=== PATIENT | male | born 1950 | race Caucasian/White ===

== ENCOUNTER → 2020-05-26 08:19 | Outpatient (BNVA) | payer MEDICARE, SELFPAY | PROVIDERS: PCP Internal Medicine; Referring Provider Internal Medicine; Visit Provider Hospitalist | DX: J84.89 Other specified interstitial pulmonary diseases (principal); J84.10 Pulmonary fibrosis, unspecified; J31.0 Chronic rhinitis; R05 Cough; M05.9 Rheumatoid arthritis with rheumatoid factor, unspecified; M35.9 Systemic involvement of connective tissue, unspecified; Z86.711 Personal history of pulmonary embolism; Z79.899 Other long term (current) drug therapy | CPT/HCPCS: 99212 ==

== ENCOUNTER 2020-08-03 09:47 | Outpatient (REF) | payer MEDICARE, SELFPAY ==
--- NOTE | 2020-08-03 10:12 | XR_ITS ---
EXAMINATION: XR CHEST CLINICAL INFORMATION: Interstitial lung disease COMPARISON: None TECHNIQUE: 2 views of the chest were obtained. FINDINGS: There is splaying of the srikanth questionable for left atrial enlargement. Hilar and mediastinal contours are otherwise unremarkable. The lung volumes are low. There are increased interstitial markings suggestive of interstitial lung disease. There is an 8 mm nodular density in the left lateral midlung probably artifactual due to overlapping bone, scapula and left posterior sixth rib. There is no pleural effusion or pneumothorax. Bony structures are unremarkable. XR/XR chest 2V IMPRESSION: Low lung volumes and interstitial lung disease. 8mm left lung nodular density, question artifactual due to bone. Splaying of the srikanth questionable for left atrial enlargement.
[2020-08-03 10:41] LABS: MANUAL DIFF FLAG NO
[2020-08-03 10:45] LABS: Basophils Percent Auto 0.2 % (0-2); Eosinophils Absolute Auto 0.1 X10*3/uL (0.0-0.4); Eosinophils Percent Auto 0.5 % (0-4); Hematocrit 49.3 % (42-52); Hemoglobin 15.1 g/dl (14.0-18.0); Imm Gran Abs Auto 0.16 X10*3/uL (0.00-0.03); Imm Gran Pct Auto 1.2 % (0.0-0.4); Lymphocytes Absolute Auto 1.2 X10*3/uL (1.2-4.9); Lymphocytes Percent Auto 8.5 % (20-40); Mean Corpuscular HGB Conc 30.6 g/dl (31.0-36.0); Mean Corpuscular Hemoglobin 28.3 pg (27.0-33.0); Mean Corpuscular Volume 92.3 fL (80-98); Mean Platelet Volume 9.5 fL (9.4-12.4); Monocytes Absolute Auto 0.8 X10*3/uL (0.1-1.2); Monocytes Percent Auto 6.1 % (2-11); Neutrophils Absolute Auto 11.4 X10*3/uL (2.0-8.3); Neutrophils Percent Auto 83.5 % (45-73); Platelet Count 313 X10*3/uL (160-400); Red Blood Count 5.34 X10*6/uL (4.60-5.80); White Blood Count 13.7 X10*3/uL (4.8-10.8)
[2020-08-03 11:17] LABS: Alanine Aminotransferase 12 U/L (0-40); Albumin Level 4.2 g/dL (3.5-5.0); Alkaline Phosphatase 84 U/L (39-117); Anion Gap 16 (12-20); Aspartate Amino Transferase 15 U/L (5-37); Bilirubin Direct 0.5 mg/dL (0.0-0.5); Bilirubin Total 1.1 mg/dL (0.0-1.0); Blood Urea Nitrogen 18 mg/dL (9-16); Carbon Dioxide 28 mmol/L (22-29); Chloride 102 mmol/L (96-108); Estimated Glomerular Filt Rate > 60; Glucose Random 89 mg/dL (60-115); Potassium 4.5 mmol/l (3.3-5.1); Sodium 141 mmol/L (135-145)
[2020-08-03 11:24] LABS: Calcium 12.4 mg/dL (8.4-10.2)
== END 2020-08-03 09:48 | disposition home or self-care (01) ==
LOC: HO.LAB 09:47
PROVIDERS: PCP Internal Medicine; Visit Provider Hospitalist
DX: J84.89 Other specified interstitial pulmonary diseases (principal)
CPT/HCPCS: 36415; 71046; 80048; 80076; 85025

== ENCOUNTER → 2020-08-27 08:37 | Outpatient (BNVA) | payer MEDICARE, SELFPAY | PROVIDERS: PCP Internal Medicine; Visit Provider Hospitalist | DX: J84.10 Pulmonary fibrosis, unspecified (principal); J84.89 Other specified interstitial pulmonary diseases; J31.0 Chronic rhinitis; J84.112 Idiopathic pulmonary fibrosis; M05.9 Rheumatoid arthritis with rheumatoid factor, unspecified; Z86.711 Personal history of pulmonary embolism; M35.9 Systemic involvement of connective tissue, unspecified | CPT/HCPCS: 99212 ==

== ENCOUNTER → 2020-10-05 08:22 | Outpatient (BNVA) | payer MEDICARE, SELFPAY | PROVIDERS: PCP Internal Medicine; Visit Provider Hospitalist | DX: J84.10 Pulmonary fibrosis, unspecified (principal); J84.112 Idiopathic pulmonary fibrosis; R05 Cough; K21.9 Gastro-esophageal reflux disease without esophagitis; M05.9 Rheumatoid arthritis with rheumatoid factor, unspecified; Z86.711 Personal history of pulmonary embolism; Z99.81 Dependence on supplemental oxygen; Z79.899 Other long term (current) drug therapy | CPT/HCPCS: 99212 ==

== ENCOUNTER → 2020-11-23 10:05 | Outpatient (BNVA) | payer MEDICARE, SELFPAY | PROVIDERS: PCP Internal Medicine; Visit Provider Hospitalist | DX: J84.10 Pulmonary fibrosis, unspecified (principal); J31.0 Chronic rhinitis; J84.112 Idiopathic pulmonary fibrosis; R55 Syncope and collapse; K21.9 Gastro-esophageal reflux disease without esophagitis; J84.89 Other specified interstitial pulmonary diseases; M35.9 Systemic involvement of connective tissue, unspecified; Z86.711 Personal history of pulmonary embolism | CPT/HCPCS: 99212 ==

== ENCOUNTER → 2021-01-20 08:44 | Outpatient (BNVA) | payer MEDICARE, SELFPAY | PROVIDERS: PCP Internal Medicine; Visit Provider Hospitalist | DX: J84.112 Idiopathic pulmonary fibrosis (principal); M06.9 Rheumatoid arthritis, unspecified; J84.89 Other specified interstitial pulmonary diseases; J84.10 Pulmonary fibrosis, unspecified; R09.02 Hypoxemia; J84.9 Interstitial pulmonary disease, unspecified; G47.33 Obstructive sleep apnea (adult) (pediatric); E21.3 Hyperparathyroidism, unspecified; K21.9 Gastro-esophageal reflux disease without esophagitis; R55 Syncope and collapse; Z86.711 Personal history of pulmonary embolism; Z91.030 Bee allergy status; Z99.81 Dependence on supplemental oxygen; Z99.89 Dependence on other enabling machines and devices; Z79.01 Long term (current) use of anticoagulants; Z79.52 Long term (current) use of systemic steroids; Z79.899 Other long term (current) drug therapy | CPT/HCPCS: 99212 ==

== ENCOUNTER 2021-02-24 09:33 | Outpatient (REF) | payer MEDICARE, SELFPAY ==
--- NOTE | 2021-02-24 | PFT_ITS ---
INDICATIONS: Pulmonary fibrosis, COPD. SPIROMETRY: The FEV1 to FVC 85% with an FEV1 of 1.83 L, which is 42% predicted and an FVC of 2.16 L, which is 36% predicted. No significant response to bronchodilators noted. Maximum voluntary ventilation 54% predicted. LUNG VOLUMES: Total lung capacity 42% predicted. DIFFUSION CAPACITY: DLCO 29% predicted. COMPARISONS: PFTs from 2019. INTERPRETATION: No obstructive ventilatory defect. No significant response to bronchodilators noted. There is a moderate decrease in maximum voluntary ventilation secondary to likely deconditioning and his underlying lung disease. Lung volumes do demonstrate a severe restrictive ventilatory defect secondary to his pulmonary fibrosis and there is also a very severe diffusion impairment. When compared to 2019, there is a significant decrease in the FVC, significant decrease in the FEV1, significant decrease in the total lung capacity, and a significant decrease in the diffusion capacity. Clinical correlation warranted. Ambrocio Haque MD MR/MODL / [id number]
== END 2021-02-24 09:34 | disposition home or self-care (01) ==
LOC: HO.RESP 09:33
PROVIDERS: PCP Internal Medicine; Visit Provider Hospitalist
DX: J44.9 Chronic obstructive pulmonary disease, unspecified (principal)
CPT/HCPCS: 94060; 94727; 94729

== ENCOUNTER 2021-03-28 10:13 | Inpatient (IN) | payer MEDICARE, SELFPAY ==
--- NOTE | ~2021-03-28 | XR_ITS ---
EXAMINATION: XR CHEST CLINICAL INFORMATION: Check ET and orogastric tube placement COMPARISON: Previous chest x-rays from earlier the same day TECHNIQUE: Frontal view of the chest was obtained. FINDINGS: There is an endotracheal tube with tip 6.7 cm above the srikanth. There is an OG tube with tip projecting over the stomach. There is a right upper extremity line with tip projecting over the SVC. The cardiac and mediastinal contours are stable. There is bilateral mixed interstitial and airspace disease. There is no pleural effusion or pneumothorax. No acute bone abnormality is seen. XR/XR chest 1V IMPRESSION: Satisfactory position of ET and OG tubes. No change in extensive bilateral lung disease.
--- NOTE | ~2021-03-28 | XR_ITS ---
EXAMINATION: XR CHEST CLINICAL INFORMATION: Hypoxia COMPARISON: Previous chest x-ray most recent 04/04/2021 TECHNIQUE: Frontal view of the chest was obtained. FINDINGS: The lung volumes are low. The cardiac silhouette is enlarged but stable. Hilar and mediastinal contours are stable. There is bilateral multilobar airspace disease. This appears increased from previous exam. There is no pleural effusion or pneumothorax. No acute bone abnormality is seen. XR/XR chest 1V IMPRESSION: Low lung volumes. Bilateral airspace disease increased from previous exams.
--- NOTE | ~2021-03-28 | XR_ITS ---
EXAMINATION: XR CHEST CLINICAL INFORMATION: Reevaluate lung disease COMPARISON: Previous chest x-ray most recent 04/01/2021 TECHNIQUE: Frontal view of the chest was obtained. FINDINGS: The cardiac and mediastinal contours are stable. The lung volumes are low. There is bilateral patchy airspace disease. This does not appear appreciably changed. There are new linear densities projecting over the bilateral chest. This may represent something on the patient's skin or clothing. There is no pleural effusion or pneumothorax. No acute bone abnormality is seen. XR/XR chest 1V IMPRESSION: Low lung volumes and bilateral extensive airspace disease. There is no appreciable change from 04/01/2021.
--- NOTE | ~2021-03-28 | XR_ITS ---
EXAMINATION: XR CHEST CLINICAL INFORMATION: Hypoxia COMPARISON: August 03, 2020 TECHNIQUE: AP portable view of the chest was obtained. FINDINGS: There is underlying chronic interstitial lung disease seen bilaterally. There is some chronic loss of right lung volume. Superimposed on this there appears to be airspace disease throughout the right lung and involving the left lung base. There is prominence of the right hilar region which could be related to lymphadenopathy. Heart normal size. No definite pulmonary edema appreciated. XR/XR chest 1V IMPRESSION: Findings consistent with chronic interstitial lung disease with superimposed acute disease which may be inflammatory or infectious.
--- NOTE | ~2021-03-28 | XR_ITS ---
EXAMINATION: XR CHEST CLINICAL INFORMATION: Hypoxia COMPARISON: 04/08/2021 TECHNIQUE: Frontal view of the chest was obtained. FINDINGS: Endotracheal tube terminates 6.8 cm above the srikanth. Enteric tube terminates within the stomach. Right PICC terminates at the superior cavoatrial junction. Stable appearance of the diffuse bilateral interstitial and airspace opacities. No large pleural effusion. No pneumothorax. Heart size within normal limits for technique. No acute or suspicious osseous abnormalities. XR/XR chest 1V IMPRESSION: Stable exam
--- NOTE | ~2021-03-28 | XR_ITS ---
EXAMINATION: XR CHEST CLINICAL INFORMATION: Hypoxia COMPARISON: Chest radiograph 04/06/2021. TECHNIQUE: Frontal view of the chest was obtained. FINDINGS: Diffuse fine and medium pulmonary reticular opacities and diffuse groundglass opacity are present throughout the lungs and unchanged compared with 04/06/2021. Multiple external artifacts overlie the thorax. The cardia style silhouette is partially obscured from precise visualization by the pulmonary opacities but is grossly unchanged. No effusions or pneumothoraces are visualized. XR/XR chest 1V IMPRESSION: 1. No change compared with 04/06/2021. Unchanged diffuse alveolar and interstitial disease of the lungs.
--- NOTE | ~2021-03-28 | CT_ITS ---
EXAMINATION: CT ANGIOGRAM OF THE CHEST WITH AND WITHOUT CONTRAST (CT PULMONARY ANGIOGRAM FOR PE) CLINICAL INFORMATION: Hypoxic, history of PE. COMPARISON: None. TECHNIQUE: Prior to contrast administration, noncontrast localization images were obtained. Subsequently, multidetector volumetric imaging was performed from the thoracic inlet to below the diaphragms following the administration of 80 mL Omnipaque 350 intravenous contrast. No contrast reaction reported Sagittal, coronal, and MIP oblique sagittal reformatted images were obtained on the CT workstation, uploaded to PACS, and reviewed. This CT examination was performed using dose optimization techniques as appropriate, variously including the following: *Automated exposure control *Adjustment of mA and/or kV according to patient size (this includes techniques or standardized protocols for targeted exams where dose is matched to indication/reason for exam; i.e. extremities or head) *Use of iterative reconstruction technique Total exam dose-length product 357 mGy-cm FINDINGS: QUALITY OF STUDY/CONTRAST BOLUS: Satisfactory. PULMONARY ARTERIES: Respiratory motion artifact limits evaluation. No obvious/large filling defects identified in the central or segmental pulmonary aspect indicate definite emboli. THORACIC AORTA: No aneurysm or dissection. LUNG: There is multifocal airspace and ground-glass opacities diffusely in lungs. This could reflect infectious/inflammatory process. Respiratory motion artifact limits evaluation. PLEURA: No pleural effusion or pneumothorax. MEDIASTINUM: Normal heart size. No pericardial effusion. Nonspecific borderline prominent prevascular lymph nodes measuring up to 0.9 cm in short axis. No hilar lymphadenopathy. No evidence of septal bowing or right heart strain. CHEST WALL/AXILLA: No axillary or internal mammary lymphadenopathy. OSSEOUS STRUCTURES: No acute or suspicious osseous abnormality. UPPER ABDOMEN: No acute findings in the upper abdomen. No reflux of contrast into the hepatic veins to suggest elevated right heart pressures. CT/CT angio chest PE protocol IMPRESSION: Respiratory motion artifact limiting evaluation. No significant central pulmonary emboli are identified. Multifocal airspace and ground-glass opacities diffusely in bilateral lungs. This could reflect infectious/ inflammatory process. Recommend clinical correlation and management. Recommend follow-up imaging for reassessment/ensure resolution. Nonspecific borderline prominent mediastinal lymph nodes. VTE: Negative.
--- NOTE | ~2021-03-28 | XR_ITS ---
EXAMINATION: XR CHEST CLINICAL INFORMATION: New line COMPARISON: 04/08/2021, earlier the same day TECHNIQUE: Frontal view of the chest was obtained. FINDINGS: New right upper extremity PICC line with catheter tip near the cavoatrial junction. Worsened diffuse interstitial opacity. Possible right pleural effusion. Cardiac silhouette remains enlarged. XR/XR chest 1V IMPRESSION: New right upper extremity PICC line with catheter tip at the cavoatrial junction. Worsened diffuse interstitial opacities.
[2021-03-28 10:27] VITALS: BP 136/87; PULSE 115; RESP 22; TEMP 37.1; O2SAT 64; BMI 33.0
--- NOTE | 2021-03-28 10:31 | PC.NURSE ---
PLACED ON NRB 100% RECOVERED SLOWLY TO 93%, VERBALLY BUT LABORED SENTENCES, COLOR IMPROVING
--- NOTE | 2021-03-28 10:35 | ECG_ITS ---
Test Reason : DYSPNEA Blood Pressure : / mmHG Vent. Rate : 102 BPM Atrial Rate : 102 BPM P-R Int : 148 ms QRS Dur : 080 ms QT Int : 356 ms P-R-T Axes : 035 -45 056 degrees QTc Int : 463 ms Sinus tachycardia with frequent Premature ventricular complexes Left axis deviation Nonspecific T wave abnormality Abnormal ECG No previous ECGs available Referred By: Thais Shankar Electronically Signed By:GIRISH LAWLER
--- NOTE | 2021-03-28 10:49 | ED.SOB ---
HPI - SOB/Dyspnea General Chief Complaint: Dyspnea Stated Complaint: DIFF BREATHING LOW O2 Time Seen by Provider: 03/28/21 10:20 Source: patient and EMS Mode of arrival: EMS Limitations: no limitations History of Present Illness HPI Narrative: Patient comes to the emergency room complaining of worsening shortness of breath. Patient has history significant for idiopathic pulmonary fibrosis, rheumatoid arthritis, history of pulmonary embolisms currently being treated with Eliquis. Patient states that for the last 2 days, his oxygen saturation has been as low as 45% on his home O2. Patient sees Dr. Haque for pulmonology, patient was instructed to come to the emergency room immediately. On arrival, patient's oxygen saturation was 64% on room air. Patient was started on a non-rebreather 15 L, oxygen saturation is 95%. Patient states that for the last month he has been coughing more than usual, complaining of productive cough, no fever or chills, no chest pain. Related Data Home Medications Medication Instructions Recorded Confirmed allopurinol 100 mg tablet 100 mg PO DAILY 05/26/20 03/28/21 amlodipine 10 mg tablet 10 mg PO DAILY 05/26/20 03/28/21 olmesartan 40 mg tablet 40 mg PO DAILY 05/26/20 03/28/21 prednisone 10 mg tablet 10 mg PO DAILY 05/26/20 03/28/21 tadalafil 20 mg tablet 20 mg PO DAILY PRN 10/05/20 03/28/21 epinephrine 0.3 mg/0.3 mL 0.3 mg IM ONCE PRN 01/20/21 03/28/21 injection, auto-injector Previous Rx's Medication Instructions Recorded apixaban 5 mg tablet (Eliquis) 5 mg PO BID #60 tab 09/08/20 nintedanib 150 mg capsule (Ofev) 150 mg PO Q12H #60 cap 12/31/20 Allergies Allergy/AdvReac Type Severity Reaction Status Date / Time Bee Stings Allergy Mild Anaphylaxis Uncoded 08/27/20 08:57 Review of Systems Review of Systems: Constitutional : No Weight loss, No Fever, No Chills, No Night Sweats, No Fatigue, No Malaise ENT/Mouth : No Hearing loss, No Ear Pain, No Nasal Congestion, No Sinus Pain, No Hoarseness, No sore throat, No Rhinorrhea, No Swallowing Difficulty Eyes: No Eye Pain, No Swelling, No Redness, No Foreign Body, No Discharge, No Vision Changes Cardiovascular : No Chest Pain, No SOB, No Dyspnea on Exertion, No Orthopnea, No Edema, No Palpitations Respiratory : Worsening chronic cough with sputum, worsening shortness of breath, low oxygen saturation Gastrointestinal : No Nausea, No Vomiting, No Diarrhea, No Constipation, No abdominal Pain, No Hematochezia, No Melena Genitourinary : no irregular bleeding, No Dysuria, No Urinary Frequency, No Hematuria, No Urinary Incontinence, No Urgency, No Flank Pain, No Urinary Flow Changes, No Hesitancy Musculoskeletal : No joint pain, No Myalgias, No Joint Swelling Skin : No Skin Lesions, No rash Neuro : No Weakness, No Numbness, No Paresthesias, No Loss of Consciousness, No Dizziness, No Headache Psych : No Anxiety/Panic, No Depression, No SI/HI/AH/VH, No Social Issues, Heme/Lymph: No Bruising, No Bleeding,No Lymphadenopathy Endocrine : No Polyuria, No Polydipsia, No Temperature Intolerance [facility] Past Medical History Medical History Chronic rhinitis Cough History of pulmonary embolism Interstitial lung disease due to connective tissue disease IPF (idiopathic pulmonary fibrosis) Pulmonary fibrosis Rheumatoid arthritis Syncope Social History Social History (Updated 01/20/21 @ 08:59 by DAYNA Randhawa) Patient Tobacco Use Status: Never used Tobacco Advance Directives: No Advance Directives Information Provided: No Physical Exam Vital Signs: Vital Signs: Last Vital Signs Temp 98.7 F 03/28/21 10:27 Pulse 88 03/28/21 14:42 Resp 20 03/28/21 14:42 BP 140/78 H 03/28/21 13:31 Pulse Ox 94 03/28/21 14:42 Body Mass Index 33.0 Const: Other: Appearance: Alert. Oriented X3. [id number] respiratory distress, improving with a non-rebreather Eyes: Pupils equal, round and reactive to light. ENT: Pharynx normal. Neck: Normal inspection. Neck supple. No lymph nodes noted. No crepitus CVS: Normal heart rate and rhythm. Pulses normal. Normal S1 and S2 Respiratory: Mild to moderate respiratory distress, diminished breath sounds, diffuse crackles, no wheezing Abdomen: Soft and nontender. No rigidity. No distention. Skin: Skin warm and dry. Initially patient was cyanotic in all extremities and face, after starting him on 15 L, patient regained normal color Extremities: No lower extremity edema. No Lacerations. No Rash Neuro: Oriented X 3. No motor deficit. No sensory deficit. Moving all extermities. No slurred speech. Course Course Course Narrative: Patient was weaned off from 15 L non-rebreather to a Ventimask. Patient feeling much better, oxygen saturation. Patient is on a non-rebreather, breathing comfortably, speaking in full sentences. Patient started on IV Levaquin. Sepsis is not suspected at this time. Patient's hypoxia likely secondary to pneumonia. I discussed the patient with Dr. Khan, patient being admitted. MDM - SOB/Dyspnea Lab Data Result diagrams: 03/28/21 11:22 03/28/21 11:22 Labs: Lab Results 03/28/21 03/28/21 03/28/21 Range/Units 11:21 11:22 11:22 WBC 14.0 H (4.8-10.8) X10*3/uL RBC 4.72 (4.60-5.80) X10*6/uL Hgb 14.5 (14.0-18.0) g/dl Hct 44.6 (42-52) % MCV 94.5 (80-98) fL MCH 30.7 (27.0-33.0) pg MCHC 32.5 (31.0-36.0) g/dl RDW 14.3 (11.0-16.0) % Plt Count 152 L D (160-400) X10*3/uL MPV 10.2 (9.4-12.4) fL Immature Gran % (Auto) 1.1 H (0.0-0.4) % Neut % (Auto) 87.4 H (45-73) % Lymph % (Auto) 4.6 L (20-40) % [place] % (Auto) 6.4 (2-11) % Eos % (Auto) 0.4 (0-4) % Baso % (Auto) 0.1 (0-2) % Lymph # (Auto) 0.6 L (1.2-4.9) X10*3/uL [place] # (Auto) 0.9 (0.1-1.2) X10*3/uL Eos # (Auto) 0.1 (0.0-0.4) X10*3/uL Baso # (Auto) 0.0 (0.0-0.2) X10*3/uL Abs Immat Gran (auto) 0.16 H (0.00-0.03) X10*3/uL Absolute Neuts (auto) 12.2 H (2.0-8.3) X10*3/uL Absolute Nucleated RBC 0.000 (0.0-0.012) X10*3/uL Nucleated RBC % (auto) 0.0 (0.0-0.2) /100WBC Sodium 144 (135-145) mmol/L Potassium 3.4 (3.3-5.1) mmol/L Chloride 106 (96-108) mmol/L Carbon Dioxide 27 (22-29) mmol/L Anion Gap 14 (12-20) BUN 12 (9-16) mg/dL Creatinine 0.75 (0.5-1.4) mg/dL Estim Creat Clear Calc 119.2 Estimated GFR > 60 Random Glucose 95 (60-115) mg/dL Lactic Acid (0.5-2.0) mmol/L Calcium 9.6 D (8.4-10.2) mg/dL Total Bilirubin 2.6 H (0.0-1.0) mg/dL Direct Bilirubin 0.9 H (0.0-0.5) mg/dL AST 21 (5-37) U/L ALT 18 (0-40) U/L Alkaline Phosphatase 61 D (39-117) U/L Troponin I High Sens (<3.5-35.0) ng/L B-Natriuretic Peptide (<100) pg/mL Total Protein 6.5 (6.5-8.0) g/dL Albumin 3.8 (3.5-5.0) g/dL COVID-19 ([facility]) Negative (Negative) COVID-19 Clin Com See Note 03/28/21 03/28/21 Range/Units 11:22 11:22 WBC (4.8-10.8) X10*3/uL RBC (4.60-5.80) X10*6/uL Hgb (14.0-18.0) g/dl Hct (42-52) % MCV (80-98) fL MCH (27.0-33.0) pg MCHC (31.0-36.0) g/dl RDW (11.0-16.0) % Plt Count (160-400) X10*3/uL MPV (9.4-12.4) fL Immature Gran % (Auto) (0.0-0.4) % Neut % (Auto) (45-73) % Lymph % (Auto) (20-40) % [place] % (Auto) (2-11) % Eos % (Auto) (0-4) % Baso % (Auto) (0-2) % Lymph # (Auto) (1.2-4.9) X10*3/uL [place] # (Auto) (0.1-1.2) X10*3/uL Eos # (Auto) (0.0-0.4) X10*3/uL Baso # (Auto) (0.0-0.2) X10*3/uL Abs Immat Gran (auto) (0.00-0.03) X10*3/uL Absolute Neuts (auto) (2.0-8.3) X10*3/uL Absolute Nucleated RBC (0.0-0.012) X10*3/uL Nucleated RBC % (auto) (0.0-0.2) /100WBC Sodium (135-145) mmol/L Potassium (3.3-5.1) mmol/L Chloride (96-108) mmol/L Carbon Dioxide (22-29) mmol/L Anion Gap (12-20) BUN (9-16) mg/dL Creatinine (0.5-1.4) mg/dL Estim Creat Clear Calc Estimated GFR Random Glucose (60-115) mg/dL Lactic Acid 1.5 (0.5-2.0) mmol/L Calcium (8.4-10.2) mg/dL Total Bilirubin (0.0-1.0) mg/dL Direct Bilirubin (0.0-0.5) mg/dL AST (5-37) U/L ALT (0-40) U/L Alkaline Phosphatase (39-117) U/L Troponin I High Sens 6.0 (<3.5-35.0) ng/L B-Natriuretic Peptide 75 (<100) pg/mL Total Protein (6.5-8.0) g/dL Albumin (3.5-5.0) g/dL COVID-19 ([facility]) (Negative) COVID-19 Clin Com Critical Care Time Critical Care Time Critical Care Time: Yes Total Critical Care Time: 60 Attestation: 60 minutes were spent with the patient in direct patient care and stabilization. Discharge Plan Discharge Clinical Impression: Pneumonia Patient Disposition: Admitted As Inpatient Prescriptions: No Action apixaban [Eliquis] 5 mg tablet 5 mg PO BID Qty: 60 RF: 11 nintedanib [Ofev] 150 mg capsule 150 mg PO Q12H Qty: 60 RF: 10 epinephrine 0.3 mg/0.3 mL auto-injector 0.3 mg IM ONCE PRN (Reason: Allergic Reaction) RF: 0 allopurinol 100 mg tablet 100 mg PO DAILY RF: 0 prednisone 10 mg tablet 10 mg PO DAILY RF: 0 amlodipine 10 mg tablet 10 mg PO DAILY RF: 0 olmesartan 40 mg tablet 40 mg PO DAILY RF: 0 tadalafil 20 mg tablet 20 mg PO DAILY PRN (Reason: Sexual Activity) RF: 0
[2021-03-28 11:29] LABS: MANUAL DIFF FLAG NO
[2021-03-28 11:31] LABS: Basophils Percent Auto 0.1 % (0-2); Eosinophils Absolute Auto 0.1 X10*3/uL (0.0-0.4); Eosinophils Percent Auto 0.4 % (0-4); Hematocrit 44.6 % (42-52); Hemoglobin 14.5 g/dl (14.0-18.0); Imm Gran Abs Auto 0.16 X10*3/uL (0.00-0.03); Imm Gran Pct Auto 1.1 % (0.0-0.4); Lymphocytes Absolute Auto 0.6 X10*3/uL (1.2-4.9); Lymphocytes Percent Auto 4.6 % (20-40); Mean Corpuscular HGB Conc 32.5 g/dl (31.0-36.0); Mean Corpuscular Hemoglobin 30.7 pg (27.0-33.0); Mean Corpuscular Volume 94.5 fL (80-98); Mean Platelet Volume 10.2 fL (9.4-12.4); Monocytes Absolute Auto 0.9 X10*3/uL (0.1-1.2); Monocytes Percent Auto 6.4 % (2-11); Neutrophils Absolute Auto 12.2 X10*3/uL (2.0-8.3); Neutrophils Percent Auto 87.4 % (45-73); Platelet Count 152 X10*3/uL (160-400); Red Blood Count 4.72 X10*6/uL (4.60-5.80); Red Cell Distribution Width 14.3 % (11.0-16.0)
[2021-03-28 11:45] LABS: COVID-19 Test Negative (Negative)
[2021-03-28 11:49] LABS: Lactic Acid 1.5 mmol/L (0.5-2.0)
--- NOTE | 2021-03-28 11:50 | PHA.MEDREC ---
Pharmacy Consult ? Medication Reconciliation Pharmacy has completed the medication reconciliation. Nina McleanD
[2021-03-28 11:57] LABS: Alanine Aminotransferase 18 U/L (0-40); Albumin Level 3.8 g/dL (3.5-5.0); Alkaline Phosphatase 61 U/L (39-117); Anion Gap 14 (12-20); Aspartate Amino Transferase 21 U/L (5-37); Bilirubin Direct 0.9 mg/dL (0.0-0.5); Bilirubin Total 2.6 mg/dL (0.0-1.0); Blood Urea Nitrogen 12 mg/dL (9-16); Calcium 9.6 mg/dL (8.4-10.2); Carbon Dioxide 27 mmol/L (22-29); Chloride 106 mmol/L (96-108); Creatinine Clr Calc Pharmacy 119.2; Estimated Glomerular Filt Rate > 60; Glucose Random 95 mg/dL (60-115); Potassium 3.4 mmol/L (3.3-5.1); Sodium 144 mmol/L (135-145); Total Protein 6.5 g/dL (6.5-8.0)
[2021-03-28 11:59] LABS: B Type Natriuretic Peptide 75 pg/mL (<100)
--- NOTE | 2021-03-28 12:03 | PC.NURSE ---
Respiratory at bedside- titrating pt to a ventimask
[2021-03-28] MEDS: iohexoL 350 MG/ML 100 ML INFUS..BTL IV (13:10)
[2021-03-28 13:31] VITALS: BP 140/78; PULSE 96; RESP 17
[2021-03-28 14:42] VITALS: PULSE 88; RESP 20; O2SAT 94
[2021-03-28] MEDS: levoFLOXacin/D5W 500 MG/100 ML PIGGYBACK 100 MG IV (15:05)
--- NOTE | 2021-03-28 17:40 | PM.IMHP ---
History of Present Illness Date of Service: 03/28/21 <Helen Haque NP - Last Filed: 03/28/21 17:53> 70-year-old man presented to the ER with complaints of worsening shortness of breath. Does have a history of interstitial lung disease and is chronically on anywhere from 2-4 L of oxygen and recently increased to 5 L. He had been treated with Levaquin approximately 2 weeks ago and has been off for 2 weeks. He follows closely with his air pollution engineer toi Haque. Over the last 2 days he had noticed as oxygen saturation had been as low as 45% on 4 L and that is when he increased to 5 L. on arrival to the ER his oxygen saturation was 64%, he was placed on the non-rebreather at 15 L and his oxygen saturation did improve to 95%. Be denied chest pain, nausea, vomiting, diarrhea. She did report coughing a little more than usual. He is on chronic steroids for rheumatoid arthritis. He was noted to be hypoxic in the ER. After non-rebreather and then Venti mask he seems to be responding well. Chest CTA showed mold multifocal airspace and ground-glass opacities diffusely in bilateral lungs. He was given a dose of Levaquin in the ER. He will be admitted for further management treatment of community-acquired pneumonia. <Helen Haque NP - Last Filed: 03/28/21 17:53> Review of Systems Review of Systems: Denies any recent fever chills or decrease in appetite respiratory see HPI cardiovascular denies chest pain gastrointestinal denies any dysphagia abdominal pain nausea vomiting or diarrhea genitourinary denies any dysuria frequency or hematuria musculoskeletal denies any joint pain or swelling neuropsych denies any weakness or seizures all other systems reviewed are negative <Helen Haque NP - Last Filed: 03/28/21 17:53> [facility] Medical History: Medical History (Updated 03/29/21 @ 09:37 by Deng Méndez MD) Acute pneumonitis Chronic rhinitis Cough History of pulmonary embolism Interstitial lung disease due to connective tissue disease IPF (idiopathic pulmonary fibrosis) Pulmonary fibrosis Respiratory failure with hypoxia Rheumatoid arthritis Syncope <Helen Haque NP - Last Filed: 03/28/21 17:53> Social History: Social History (Updated 01/20/21 @ 08:59 by DAYNA Randhawa) Household Members: Spouse Housing: House Patient Tobacco Use Status: Never used Tobacco Use of substances other than those prescribed or required for medical reasons: No Currently Displaying Signs/Symptoms of Drug Intoxication Withdrawal: No Have you been hit, kicked, punched, or otherwise hurt by someone within the past year? If so, by whom?: No Do you feel safe in your current relationship?: Yes Is there a partner from a previous relationship who is making you feel unsafe now?: No Are you made to feel afraid or neglected: No Advance Directives: No Advance Directives Information Provided: No Do you have thoughts of harming others: None Do you have a plan to hurt others: No Plan How much weight loss: 2-13 pounds Eating poorly because of decreased appetite: No Nutrition Risks: No Nutritional Risk service: No Current occupational status: retired <Helen Haque NP - Last Filed: 03/28/21 17:53> Meds Allergies/Adverse reactions: Allergies Allergy/AdvReac Type Severity Reaction Status Date / Time Bee Stings Allergy Mild Anaphylaxis Uncoded 08/27/20 08:57 <Helen Haque NP - Last Filed: 03/28/21 17:53> Active Medications: Current Medications Generic Name Dose Route Start Last Admin Trade Name Freq PRN Reason Stop Dose Admin Acetaminophen 650 mg 03/28/21 17:33 Acetaminophen 325 Mg Tablet PO Q6H PRN Pain, Mild (Pain Scale 1-3) Allopurinol 100 mg 03/29/21 09:00 Allopurinol 100 Mg Tablet PO DAILY [facility] Amlodipine Besylate 10 mg 03/29/21 09:00 Amlodipine Besylate 10 Mg Tablet PO DAILY [facility] Protocol Apixaban 5 mg 03/28/21 21:00 Apixaban 5 Mg Tablet PO BID [facility] Non-Formulary Medication 40 mg 03/29/21 09:00 Olmesartan PO DAILY [facility] Non-Formulary Medication 150 mg 03/28/21 17:45 Nintedanib [Ofev] PO Q12H [facility] Ondansetron HCl 4 mg 03/28/21 17:33 Ondansetron Hcl 4 Mg/2 Ml Vial IVPUSH Q8H PRN Nausea and Vomiting Pharmacy Consult 1 each 03/28/21 10:55 Consult Rx Perform Med Rec MISCELLANE ONCE PRN Consult order Prednisone 10 mg 03/29/21 09:00 Prednisone 10 Mg Tablet PO DAILY LATANYA Sodium Chloride 3 ml 03/29/21 00:00 0.9 % Sodium Chloride Flush 3 Ml Syringe IVFLUSH QSHIFT LATA[place]Y <Helen Haque NP - Last Filed: 03/28/21 17:53> Home medications: Home Medications Medication Instructions Recorded Confirmed Last Taken Type allopurinol 100 mg tablet 100 mg PO DAILY 05/26/20 03/28/21 03/28/21 History amlodipine 10 mg tablet 10 mg PO DAILY 05/26/20 03/28/21 03/28/21 History olmesartan 40 mg tablet 40 mg PO DAILY 05/26/20 03/28/21 Unknown History prednisone 10 mg tablet 10 mg PO DAILY 05/26/20 03/28/21 03/28/21 History tadalafil 20 mg tablet 20 mg PO DAILY PRN 10/05/20 03/28/21 Unknown History epinephrine 0.3 mg/0.3 mL 0.3 mg IM ONCE PRN 01/20/21 03/28/21 Unknown History injection, auto-injector <Helen Haque NP - Last Filed: 03/28/21 17:53> Physical Exam Vital Signs and Narrative: Vital Signs: Last Vital Signs Temp 98.7 F 03/28/21 10:27 Pulse 88 03/28/21 14:42 Resp 20 03/28/21 14:42 BP 140/78 H 03/28/21 13:31 Pulse Ox 94 03/28/21 14:42 Body Mass Index 33.0 <Helen Haque NP - Last Filed: 03/28/21 17:53> Appearing in no acute distress head is normocephalic atraumatic eyes pupils are PERRLA sclera is anicteric mouth throat mucous membranes are intact and moist neck is supple no lymphadenopathy, no JVD noted lung sounds coarse heart regular rate rhythm, clear S1, S2 positive bowel sounds, abdomen is soft, nontender neuro patient is alert x3, no focal deficits <Helen Haque NP - Last Filed: 03/28/21 17:53> Results Labs CBC and Chem 7: : 03/30/21 06:23 03/30/21 06:23 <Helen Haque NP - Last Filed: 03/28/21 17:53> Labs: Laboratory Results - last 24 hr 03/28/21 03/28/21 03/28/21 11:21 11:22 11:22 MCV 94.5 MCH 30.7 MCHC 32.5 RDW 14.3 Plt Count 152 L D MPV 10.2 Immature Gran % (Auto) 1.1 H Neut % (Auto) 87.4 H Lymph % (Auto) 4.6 L [place] % (Auto) 6.4 Eos % (Auto) 0.4 Baso % (Auto) 0.1 Lymph # (Auto) 0.6 L [place] # (Auto) 0.9 Eos # (Auto) 0.1 Baso # (Auto) 0.0 Abs Immat Gran (auto) 0.16 H Absolute Neuts (auto) 12.2 H Absolute Nucleated RBC 0.000 Nucleated RBC % (auto) 0.0 Anion Gap 14 Estim Creat Clear Calc 119.2 Estimated GFR > 60 Random Glucose 95 Lactic Acid Calcium 9.6 D Total Bilirubin 2.6 H Direct Bilirubin 0.9 H AST 21 ALT 18 Alkaline Phosphatase 61 D Troponin I High Sens B-Natriuretic Peptide Total Protein 6.5 Albumin 3.8 COVID-19 ([facility]) Negative COVID-19 Clin Com See Note 03/28/21 03/28/21 11:22 11:22 MCV MCH MCHC RDW Plt Count MPV Immature Gran % (Auto) Neut % (Auto) Lymph % (Auto) [place] % (Auto) Eos % (Auto) Baso % (Auto) Lymph # (Auto) [place] # (Auto) Eos # (Auto) Baso # (Auto) Abs Immat Gran (auto) Absolute Neuts (auto) Absolute Nucleated RBC Nucleated RBC % (auto) Anion Gap Estim Creat Clear Calc Estimated GFR Random Glucose Lactic Acid 1.5 Calcium Total Bilirubin Direct Bilirubin AST ALT Alkaline Phosphatase Troponin I High Sens 6.0 B-Natriuretic Peptide 75 Total Protein Albumin COVID-19 ([facility]USS) COVID-19 Clin Com <Helen Haque NP - Last Filed: 03/28/21 17:53> Imaging Radiologist's Impressions: Impressions Chest CTA 03/28/21 10:52 IMPRESSION: Respiratory motion artifact limiting evaluation. No significant central pulmonary emboli are identified. Multifocal airspace and ground-glass opacities diffusely in bilateral lungs. This could reflect infectious/ inflammatory process. Recommend clinical correlation and management. Recommend follow-up imaging for reassessment/ensure resolution. Nonspecific borderline prominent mediastinal lymph nodes. VTE: Negative. <Helen Haque NP - Last Filed: 03/28/21 17:53> Assessment and Plan (1) Pneumonia: Status: Acute <Helen Haque NP - Last Filed: 03/28/21 17:53> 70-year-old man admitted with community-acquired pneumonia. He has a history of interstitial lung disease. he had been on Levaquin for 2 weeks and more recently off for 2 weeks. Acute on chronic hypoxic respiratory failure secondary toCommunity-acquired pneumonia. Will treat with IV Zosyn Follow cultures Follows closely with pulmonology, will consult Continue supplemental oxygen Thrombocytopenia. May be secondary to infection Follow CBC Elevated bilirubin. May be secondary to infection Follow LFTs Hypertension. Continue home medications History of pulmonary embolus. Continue Eliquis History of rheumatoid arthritis continue steroids DVT prophylaxis with Anjelica Attending Dr. Palacio <Helen Haque NP - Last Filed: 03/28/21 17:53> Quality Stroke Does the patient have a stroke diagnosis?: No <Helen Haque NP - Last Filed: 03/28/21 17:53> VTE Prior VTE?: No <Helen Haque NP - Last Filed: 03/28/21 17:53> VTE Risk Level:: Medical - moderate - high <Helen Haque NP - Last Filed: 03/28/21 17:53> VTE Device Contraindication: Treatment Not Indicated <Helen Haque NP - Last Filed: 03/28/21 17:53> VTE Drug Contraindication: N/A - Med Ordered <Helen Haque NP - Last Filed: 03/28/21 17:53>
[2021-03-28] MEDS: Piperacillin Sodium/Tazobactam 3.375 GM in 0.9 % Sodium Chloride 50 ML IV ×2 (19:08→23:41)
[2021-03-28 19:30] VITALS: PULSE 88; RESP 20; O2SAT 93
[2021-03-28 20:00] VITALS: BP 164/88; PULSE 89; RESP 19; TEMP 36.2; O2SAT 92
[2021-03-28] MEDS: Apixaban 5 MG TABLET PO (21:20)
[2021-03-28] MEDS: 0.9 % Sodium Chloride Flush 3 ML SYRINGE IVFLUSH (23:41)
[2021-03-29] VITALS (13 sets, daily range): BP systolic 127–155; BP diastolic 77–89; PULSE 52–91; RESP 16–48; TEMP 36.1–37.2; O2SAT 92–98
[2021-03-29] MEDS: Piperacillin Sodium/Tazobactam 3.375 GM in 0.9 % Sodium Chloride 50 ML IV ×4 (05:21→23:21)
[2021-03-29 06:06] LABS: MANUAL DIFF FLAG NO
[2021-03-29 06:13] LABS: Basophils Percent Auto 0.1 % (0-2); Eosinophils Absolute Auto 0.1 X10*3/uL (0.0-0.4); Eosinophils Percent Auto 0.6 % (0-4); Hematocrit 41.7 % (42-52); Hemoglobin 13.6 g/dl (14.0-18.0); Imm Gran Abs Auto 0.09 X10*3/uL (0.00-0.03); Imm Gran Pct Auto 0.7 % (0.0-0.4); Lymphocytes Absolute Auto 1.2 X10*3/uL (1.2-4.9); Lymphocytes Percent Auto 9.5 % (20-40); Mean Corpuscular HGB Conc 32.6 g/dl (31.0-36.0); Mean Corpuscular Hemoglobin 30.8 pg (27.0-33.0); Mean Corpuscular Volume 94.3 fL (80-98); Mean Platelet Volume 10.4 fL (9.4-12.4); Monocytes Absolute Auto 0.9 X10*3/uL (0.1-1.2); Monocytes Percent Auto 7.5 % (2-11); Neutrophils Absolute Auto 10.3 X10*3/uL (2.0-8.3); Neutrophils Percent Auto 81.6 % (45-73); Platelet Count 137 X10*3/uL (160-400); Red Blood Count 4.42 X10*6/uL (4.60-5.80); White Blood Count 12.6 X10*3/uL (4.8-10.8)
[2021-03-29 06:37] LABS: Alanine Aminotransferase 15 U/L (0-40); Albumin Level 3.4 g/dL (3.5-5.0); Alkaline Phosphatase 55 U/L (39-117); Anion Gap 11 (12-20); Aspartate Amino Transferase 19 U/L (5-37); Bilirubin Direct 0.8 mg/dL (0.0-0.5); Bilirubin Total 3.5 mg/dL (0.0-1.0); Blood Urea Nitrogen 13 mg/dL (9-16); Calcium 9.1 mg/dL (8.4-10.2); Carbon Dioxide 28 mmol/L (22-29); Chloride 106 mmol/L (96-108); Creatinine Clr Calc Pharmacy 131.5; Estimated Glomerular Filt Rate > 60; Glucose Random 86 mg/dL (60-115); Potassium 3.4 mmol/L (3.3-5.1); Sodium 142 mmol/L (135-145); Total Protein 5.9 g/dL (6.5-8.0)
[2021-03-29] MEDS: Apixaban 5 MG TABLET PO ×2 (09:11→20:37)
[2021-03-29] MEDS: allopurinoL 100 MG TABLET PO (09:11)
[2021-03-29] MEDS: amLODIPine Besylate 10 MG TABLET PO (09:12)
[2021-03-29] MEDS: Valsartan 160 MG TABLET PO (09:12)
[2021-03-29] MEDS: 0.9 % Sodium Chloride Flush 3 ML SYRINGE IVFLUSH ×3 (09:12→23:21)
--- NOTE | 2021-03-29 09:12 | P.CONPL_ITS ---
History of Present Illness History of Present Illness Consult date: 03/29/21 Chief complaint: CAP/ild Narrative: This 70 years old gentleman is well known to the Pulmonary Department, and is being followed by Dr. Ambrocio Haque very closely . Is a known case of chronic rheumatoid arthritis, which is being treated with prednisone 10 mg daily for long-term. He has chronic interstitial fibrotic changes, which have been progressing, and he has been started on OFEV since a few months ago. He also has the sleep apnea and uses CPAP at night with pressure of 10 cm. He has past history of pulmonary embolism. Recently he has increased interstitial lung disease, and has required oxygen 2 L/minute at home. About 2 weeks ago he was treated with a course of Levaquin for 2 weeks for possibility of super added respiratory infection. Patient comes in through the emergency room with increased respiratory distress. He denies fever chills or chest pain. Also denies nausea vomiting or diarrhea. He does have frequent cough which is mostly nonproductive. In the emergency room he was quite hypoxemic and initially treated with the nasal cannula 5 L/minute but then changed to non-rebreather mask and then Ventimask. Overnight he has been on CPAP with pressure of 10 cm. This morning he is taken off CPAP and is on nasal cannula up to 10 L/minute. And he is still quite dyspneic. He has been tested for COVID-19 and his test has been negative. Review of Systems Review of Systems: Yes all other systems are reviewed and are negative Eyes: Eyes: Reports no additional eye complaints ENT: Reports system reviewed and no additional complaints, except as documented Cardiovascular: Cardiovascular: Denies chest pain, Denies irregular heart rhythm and Denies leg edema Respiratory: Respiratory: Reports as per HPI Gastrointestinal: Gastrointestinal: Reports no additional gastrointestinal complaints Genitourinary: Genitourinary: Reports no additional male genitourinary complaints Musculoskeletal: Musculoskeletal: Reports myalgias and Reports arthralgias Integumentary/Breasts: Skin/Breast: Reports system reviewed and no additional complaints, except as docu Neurologic: Reports system reviewed and no additional complaints, except as documented Psychiatric: Psychiatric: Reports no additional psychiatric complaints [facility] Past Medical History Medical History (Updated 03/29/21 @ 09:37 by Deng Méndez MD) Acute pneumonitis Chronic rhinitis Cough History of pulmonary embolism Interstitial lung disease due to connective tissue disease IPF (idiopathic pulmonary fibrosis) Pulmonary fibrosis Respiratory failure with hypoxia Rheumatoid arthritis Syncope Social History Social History (Updated 01/20/21 @ 08:59 by DAYNA Randhawa) Household Members: Spouse Housing: House Patient Tobacco Use Status: Never used Tobacco Use of substances other than those prescribed or required for medical reasons: No Currently Displaying Signs/Symptoms of Drug Intoxication Withdrawal: No Have you been hit, kicked, punched, or otherwise hurt by someone within the past year? If so, by whom?: No Do you feel safe in your current relationship?: Yes Is there a partner from a previous relationship who is making you feel unsafe now?: No Are you made to feel afraid or neglected: No Advance Directives: No Advance Directives Information Provided: No Do you have thoughts of harming others: None Do you have a plan to hurt others: No Plan How much weight loss: 2-13 pounds Eating poorly because of decreased appetite: No Nutrition Risks: No Nutritional Risk Meds Allergies Allergy/AdvReac Type Severity Reaction Status Date / Time Bee Stings Allergy Mild Anaphylaxis Uncoded 08/27/20 08:57 Active Medications: Current Medications Generic Name Dose Route Start Last Admin Trade Name Freq PRN Reason Stop Dose Admin Acetaminophen 650 mg 03/28/21 17:33 Acetaminophen 325 Mg Tablet PO Q6H PRN Pain, Mild (Pain Scale 1-3) Allopurinol 100 mg 03/29/21 09:00 Allopurinol 100 Mg Tablet PO DAILY [facility] Amlodipine Besylate 10 mg 03/29/21 09:00 Amlodipine Besylate 10 Mg Tablet PO DAILY [facility] Protocol Apixaban 5 mg 03/28/21 21:00 03/28/21 21:20 Apixaban 5 Mg Tablet PO 5 mg BID [facility] Administration Piperacillin Sod/Tazobactam 50 mls @ 100 mls/hr 03/28/21 17:45 03/29/21 06:00 Sod 3.375 gm/ Sodium Chloride IV Infused Q6H [facility] Infusion Non-Formulary Medication 150 mg 03/28/21 17:45 Nintedanib [Ofev] PO Q12H [facility] Non-Formulary Medication 120 mcg 03/29/21 11:00 Solumedrol .ROUTE 8XD [facility] Ondansetron HCl 4 mg 03/28/21 17:33 Ondansetron Hcl 4 Mg/2 Ml Vial IVPUSH Q8H PRN Nausea and Vomiting Pharmacy Consult 1 each 03/28/21 10:55 Consult Rx Perform Med Rec MISCELLANE ONCE PRN Consult order Prednisone 10 mg 03/29/21 09:00 Prednisone 10 Mg Tablet PO DAILY [facility] Sodium Chloride 3 ml 03/29/21 00:00 03/28/21 23:41 0.9 % Sodium Chloride Flush 3 Ml Syringe IVFLUSH 3 ml QSHIFT [facility] Administration Valsartan 160 mg 03/29/21 09:00 Valsartan 160 Mg Tablet PO DAILY [facility] Home Medications Medication Instructions Recorded Confirmed Last Taken Type allopurinol 100 mg tablet 100 mg PO DAILY 05/26/20 03/28/21 03/28/21 History amlodipine 10 mg tablet 10 mg PO DAILY 05/26/20 03/28/21 03/28/21 History olmesartan 40 mg tablet 40 mg PO DAILY 05/26/20 03/28/21 Unknown History prednisone 10 mg tablet 10 mg PO DAILY 05/26/20 03/28/21 03/28/21 History tadalafil 20 mg tablet 20 mg PO DAILY PRN 10/05/20 03/28/21 Unknown History epinephrine 0.3 mg/0.3 mL 0.3 mg IM ONCE PRN 01/20/21 03/28/21 Unknown History injection, auto-injector Physical Exam Vital Signs: Vital Signs: Last Vital Signs Temp 98.2 F 03/29/21 07:28 Pulse 72 03/29/21 07:28 Resp 19 03/29/21 07:28 BP 149/84 H 03/29/21 07:28 Pulse Ox 98 03/29/21 07:28 Body Mass Index 33.0 Const: Other: The patient is visibly dyspneic, shows mild respiratory distress General: alert and awake Orientation/consciousness: patient oriented x3 HENMT: Head: Yes normal to inspection General nose exam: No nasal polyps present and No nasal discharge present Face and sinus: Yes sinuses nontender Mouth: oropharynx normal Throat: Yes posterior oropharynx normal Eyes: General: appearance normal, both eyes and all related structures Neck: Neck: Yes normal visual inspection, Yes no lymphadenopathy, Yes trachea midline and Yes no JVD Thyroid: Thyroid normal Chest: Chest palpation & inspection: normal inspection of the chest, normal palpation of entire chest wall and no tenderness Resp: Other: Breath sounds are equal on both sides, with a harsh character , And he has inspiratory crepitations over the lower lobes especially on the right side. Cardio: Palpation: normal PMI Rate: regular rate Rhythm: regular rhythm Heart sounds: no gallops and no murmurs Peripheral pulses: Peripheral pulses 2+ throughout GI: Palpation (GI): Soft to palpation, nontender, No hepatosplenomegaly present and no masses Auscultation: normal bowel sounds Back/Spine/Pelvis: Thoracic/Lumbar Spine: thoracic and lumbar spine normal to inspection Skin: General skin exam: no rashes or lesions noted Neuro: General: patient oriented x3 and no focal motor deficits Cranial nerves: Yes CN's II-XII intact bilaterally Extrem: General: Yes normal to inspection, Yes no clubbing, cyanosis or edema and Yes no calf tenderness Psych: Appearance: grossly normal and well kempt Speech and movement: Normal speech and movement present Results Laboratory Findings CBC and BMP: 03/29/21 05:24 03/29/21 05:24 Abnormal lab findings: Abnormal Labs 03/28/21 03/28/21 03/29/21 11:22 11:22 05:24 WBC 14.0 H 12.6 H RBC 4.42 L Hgb 13.6 L Hct 41.7 L Plt Count 152 L D 137 L Immature Gran % (Auto) 1.1 H 0.7 H Neut % (Auto) 87.4 H 81.6 H Lymph % (Auto) 4.6 L 9.5 L Lymph # (Auto) 0.6 L Abs Immat Gran (auto) 0.16 H 0.09 H Absolute Neuts (auto) 12.2 H 10.3 H Anion Gap Total Bilirubin 2.6 H Direct Bilirubin 0.9 H Total Protein Albumin 03/29/21 05:24 WBC RBC Hgb Hct Plt Count Immature Gran % (Auto) Neut % (Auto) Lymph % (Auto) Lymph # (Auto) Abs Immat Gran (auto) Absolute Neuts (auto) Anion Gap 11 L Total Bilirubin 3.5 H Direct Bilirubin 0.8 H Total Protein 5.9 L Albumin 3.4 L Diagnostic Findings Chest x-ray: report reviewed and image reviewed CT scan - chest: report reviewed and image reviewed Assessment and Plan (1) Rheumatoid arthritis: Qualifiers: Rheumatoid arthritis location: unspecified site Rheumatoid factor presence: with rheumatoid factor Qualified Code(s): M05.9 - Rheumatoid arthritis with rheumatoid factor, unspecified Status: Acute This gentleman has chronic rheumatoid arthritis, which has been controlled with prednisone 10 mg a day. (2) Interstitial lung disease due to connective tissue disease: Status: Acute He has chronic interstitial lung disease, as a connective tissue disorder , probably associated with chronic rheumatoid arthritis. This has been gradually progressing. Patient is being treated with OFEV, an anti fibrotic agent, to slow down the progress of fibrosing pneumonitis. (3) Pneumonia: Status: Acute Patient may have super added respiratory infection, So will be treated for acute pneumonia. Blood cultures,, Legionella antibody, strep pneumoniae antigen, have been ordered. Currently patient is on Zosyn, as a broad-spectrum antibiotic. Will be modified according to the report of blood cultures and other lap tests. (4) Acute pneumonitis: Status: Acute Patient seems to have progressive interstitial pneumonitis. Solu-Medrol 125 mg Q 8 hours is ordered. And prednisone discontinued at this time. (5) Respiratory failure with hypoxia: Status: Acute He is not doing well with nasal cannula, even up to 10 L/minute. During the daytime it is not practical to keep him on CPAP continuously. I think at this point he will do better with high-flow O2 administration. As his condition improves we will wean down, slowly. Procedures Date of Service Date of Service: 03/29/21
--- NOTE | 2021-03-29 10:02 | MHC.CM.PN ---
IMM 03/29/21, PT ADMITTED W/CAP, PT IS A&OX4, AT BEDSIDE DURING INTERVIEW, ABLE TO ANSWER SOME QUESTIONS FOR W/HIS PERMISSION D/T BREATHING. PT ON 2-4L O2 AT HOME W/[facility]ANTHA, PER PT DOES HAVE A NEBULIZER HOWEVER HAS NOT BEEN USING IT. PT HAS NO OTHER DME AND NO HOME SERVICES, SERVICES DISCUSSED W/PT AND , PT REPORTS HE WOULD LIKE TO WAIT TO DECIDE IF HE NEEDS A VNA. PCP AND HCP VERIFIED, COPY OF HCP ON FILE FROM PREVIOUS ADMIT. D/C PLAN: HOME VS HOME W/VNA, FAMILY FOR TRANSPORT HCP: TOMMIE CAGLE [phone] PCP: SHIRA VELEZ
[2021-03-29] MEDS: methylPREDNISolone Sod Succ 125 MG/2 ML VIAL IV ×2 (10:20→17:34)
--- NOTE | 2021-03-29 10:25 | MHC.CLN ---
NUTRITION REVIEW OF PRIOR WEIGHTS SHOWS WEIGHT GAIN X 5 MONTHS OF +7.6%, COMPARES WEIGHT 10/06/20=102.5 KG WITH CURRENT WEIGHT 110.3 KG. MODERATE WEIGHT LOSS REPORTED UPON ADMISSION, BUT COULD NOT VERIFY.
[2021-03-29 10:28] LABS: Adenovirus PCR Not Detected (Not Detect.); Bordetella parapertussis PCR Not Detected (Not Detect.); Bordetella pertussis PCR Not Detected (Not Detect.); Chlamydia pneumoniae PCR Not Detected (Not Detect.); Coronavirus 229E PCR Not Detected (Not Detect.); Coronavirus HKU1 PCR Not Detected (Not Detect.); Coronavirus NL63 PCR Not Detected (Not Detect.); Coronavirus OC43 PCR Not Detected (Not Detect.); Human metapneumovirus PCR Not Detected (Not Detect.); Influenza A PCR Not Detected (Not Detect.); Influenza B PCR Not Detected (Not Detect.); Mycoplasma pneumoniae PCR Not Detected (Not Detect.); Parainfluenza 1 PCR Not Detected (Not Detect.); Parainfluenza 2 PCR Not Detected (Not Detect.); Parainfluenza 3 PCR Not Detected (Not Detect.); Parainfluenza 4 PCR Not Detected (Not Detect.); RSV PCR Not Detected (Not Detect.); Rhino/Enterovirus PCR Not Detected (Not Detect.); SARS-CoV-2 PCR Not Detected (Not Detect.)
[2021-03-29] MEDS: Acetaminophen 325 MG TABLET 650 MG PO (11:48)
--- NOTE | 2021-03-29 12:42 | PM.IMPN ---
Progress Note: A&P (1) Respiratory failure with hypoxia: Status: Acute Assessment and Plan: 70-year-old man admitted with community-acquired pneumonia.? He has a history of interstitial lung disease.? he had been on Levaquin for 2 weeks and more recently off for 2 weeks. Acute on chronic hypoxic respiratory failure secondary to Community-acquired pneumonia.? Will treat with IV Zosyn Follow cultures Seen and examined by pulm with rec to place on high flow and add IV steroids strep pneumo, legionella pending Thrombocytopenia.? May be secondary to infection Follow CBC Elevated bilirubin.? May be secondary to infection Follow LFTs Hypertension.? Continue home medications History of pulmonary embolus.? Continue Eliquis History of rheumatoid arthritis continue steroids DVT prophylaxis with Eliquis Subjective Subjective Date of Service: 03/29/21 Review of Systems Follow up CAP now on high flow but feeling good dry cough Physical Exam Vital Signs: Vital Signs: Last Vital Signs Temp 98.3 F 03/29/21 11:32 Pulse 85 03/29/21 11:32 Resp 22 H 03/29/21 11:47 BP 154/86 H 03/29/21 11:32 Pulse Ox 96 03/29/21 11:32 Body Mass Index 33.0 Appearing in no acute distress lung sounds coarse heart regular rate rhythm, clear S1, S2 positive bowel sounds, abdomen is soft, nontender neuro patient is alert x3, no focal deficits Objective Data Current Medications Generic Name Dose Route Start Last Admin Trade Name Freq PRN Reason Stop Dose Admin Acetaminophen 650 mg 03/28/21 17:33 03/29/21 11:48 Acetaminophen 325 Mg Tablet PO 650 mg Q6H PRN Administration Pain, Mild (Pain Scale 1-3) Allopurinol 100 mg 03/29/21 09:00 03/29/21 09:11 Allopurinol 100 Mg Tablet PO 100 mg DAILY [facility] Administration Amlodipine Besylate 10 mg 03/29/21 09:00 03/29/21 09:12 Amlodipine Besylate 10 Mg Tablet PO 10 mg DAILY [facility] Administration Protocol Apixaban 5 mg 03/28/21 21:00 03/29/21 09:11 Apixaban 5 Mg Tablet PO 5 mg BID [facility] Administration Piperacillin Sod/Tazobactam 50 mls @ 100 mls/hr 03/28/21 17:45 03/29/21 11:52 Sod 3.375 gm/ Sodium Chloride IV 100 mls/hr Q6H [facility] Administration Methylprednisolone Sodium Succinate 125 mg 03/29/21 10:00 03/29/21 10:20 Methylprednisolone Sod Succ 125 Mg/2 Ml Vial IV 125 mg Q8H [facility] Administration Patient Own 1 each 03/29/21 11:00 03/29/21 11:52 Medication ( PO 1 each Nintedanib [Ofev] BID [facility] Administration 150 Mg Capsule) Ondansetron HCl 4 mg 03/28/21 17:33 Ondansetron Hcl 4 Mg/2 Ml Vial IVPUSH Q8H PRN Nausea and Vomiting Pharmacy Consult 1 each 03/28/21 10:55 Consult Rx Perform Med Rec MISCELLANE ONCE PRN Consult order Sodium Chloride 3 ml 03/29/21 00:00 03/29/21 09:12 0.9 % Sodium Chloride Flush 3 Ml Syringe IVFLUSH 3 ml QSHIFT [facility] Administration Valsartan 160 mg 03/29/21 09:00 03/29/21 09:12 Valsartan 160 Mg Tablet PO 160 mg DAILY [facility] Administration Labs CBC & Chem 7: 03/29/21 05:24 03/29/21 05:24 Labs: Laboratory Results - last 24 hr 03/29/21 03/29/21 03/29/21 05:24 05:24 10:19 MCV 94.3 MCH 30.8 MCHC 32.6 RDW 14.0 Plt Count 137 L MPV 10.4 Immature Gran % (Auto) 0.7 H Neut % (Auto) 81.6 H Lymph % (Auto) 9.5 L [place] % (Auto) 7.5 Eos % (Auto) 0.6 Baso % (Auto) 0.1 Lymph # (Auto) 1.2 [place] # (Auto) 0.9 Eos # (Auto) 0.1 Baso # (Auto) 0.0 Abs Immat Gran (auto) 0.09 H Absolute Neuts (auto) 10.3 H Absolute Nucleated RBC 0.000 Nucleated RBC % (auto) 0.0 Anion Gap 11 L Estim Creat Clear Calc 131.5 Estimated GFR > 60 Random Glucose 86 Calcium 9.1 Total Bilirubin 3.5 H Direct Bilirubin 0.8 H AST 19 ALT 15 Alkaline Phosphatase 55 Total Protein 5.9 L Albumin 3.4 L Respiratory Panel Short See Note Adenovirus (Rapid PCR) Not Detected B.pert (TEM-PCR) Not Detected B.parapertussis DNA PCR Not Detected C. pneumoniae DNA (PCR) Not Detected Coronavirus OC43 (PCR) Not Detected Coronavirus HKU1 (PCR) Not Detected Coronavirus 229E (PCR) Not Detected Coronavirus NL63 (PCR) Not Detected Human Metapneumovir PCR Not Detected Influenza A (RT-PCR) Not Detected Influenza B (RT-PCR) Not Detected M. pneumoniae (PCR) Not Detected Parainfluenza 1 (PCR) Not Detected Parainfluenza 2 (PCR) Not Detected Parainfluenza 3 (PCR) Not Detected Parainfluenza 4 (PCR) Not Detected RSV (PCR) Not Detected Entero/Rhino (PCR) Not Detected SARS-CoV-2 RNA (RT-PCR) Not Detected Quality Stroke Does the patient have a stroke diagnosis?: No VTE Prior VTE?: No VTE Risk Level:: Medical - moderate - high VTE Device Contraindication: Treatment Not Indicated VTE Drug Contraindication: N/A - Med Ordered
[2021-03-30] VITALS (11 sets, daily range): BP systolic 145–161; BP diastolic 90–97; PULSE 52–94; RESP 18–25; TEMP 36.2–37.2; O2SAT 90–97
[2021-03-30] MEDS: methylPREDNISolone Sod Succ 125 MG/2 ML VIAL IV ×3 (01:53→17:25)
[2021-03-30] MEDS: Piperacillin Sodium/Tazobactam 3.375 GM in 0.9 % Sodium Chloride 50 ML IV ×3 (05:45→17:25)
[2021-03-30 06:43] LABS: Hematocrit 45.4 % (42-52); Hemoglobin 14.9 g/dl (14.0-18.0); Mean Corpuscular HGB Conc 32.8 g/dl (31.0-36.0); Mean Corpuscular Hemoglobin 30.7 pg (27.0-33.0); Mean Corpuscular Volume 93.4 fL (80-98); Mean Platelet Volume 10.1 fL (9.4-12.4); Platelet Count 147 X10*3/uL (160-400); Red Blood Count 4.86 X10*6/uL (4.60-5.80); Red Cell Distribution Width 13.4 % (11.0-16.0); White Blood Count 12.8 X10*3/uL (4.8-10.8)
[2021-03-30 07:26] LABS: Anion Gap 16 (12-20); Blood Urea Nitrogen 17 mg/dL (9-16); Carbon Dioxide 29 mmol/L (22-29); Chloride 103 mmol/L (96-108); Creatinine Clr Calc Pharmacy 127.7; Estimated Glomerular Filt Rate > 60; Glucose Random 129 mg/dL (60-115); Potassium 3.9 mmol/L (3.3-5.1); Sodium 144 mmol/L (135-145)
[2021-03-30] MEDS: Apixaban 5 MG TABLET PO ×2 (08:18→20:44)
[2021-03-30] MEDS: Valsartan 160 MG TABLET PO (08:18)
[2021-03-30] MEDS: amLODIPine Besylate 10 MG TABLET PO (08:18)
[2021-03-30] MEDS: allopurinoL 100 MG TABLET PO (08:18)
[2021-03-30] MEDS: 0.9 % Sodium Chloride Flush 3 ML SYRINGE IVFLUSH ×3 (08:19→20:45)
--- NOTE | 2021-03-30 13:09 | P.PNIM_ITS ---
Progress Note: A&P (1) Respiratory failure with hypoxia: Status: Acute <Helen Haque NP - Last Filed: 03/30/21 13:12> Assessment and Plan: 70-year-old man admitted with community-acquired pneumonia.? He has a history of interstitial lung disease.? he had been on Levaquin for 2 weeks and more recently off for 2 weeks. Acute on chronic hypoxic respiratory failure secondary to Community-acquired pneumonia.? Will treat with IV Zosyn Follow cultures Seen and examined by pulm with rec to place on high flow and add IV steroids strep pneumo, legionella pending Thrombocytopenia.? May be secondary to infection Follow CBC Elevated bilirubin.? May be secondary to infection Follow LFTs Hypertension.? Continue home medications History of pulmonary embolus.? Continue Eliquis History of rheumatoid arthritis continue steroids DVT prophylaxis with Eliquis <Helen Haque NP - Last Filed: 03/30/21 13:12> 70-year-old man admitted with community-acquired pneumonia.? He has a history of interstitial lung disease.? he had been on Levaquin for 2 weeks and more recently off for 2 weeks. Acute on chronic hypoxic respiratory failure secondary to Community-acquired pneumonia.? Will treat with IV Zosyn Follow cultures Seen and examined by pulm with rec to place on high flow and add IV steroids strep pneumo, legionella pending Thrombocytopenia.? May be secondary to infection Follow CBC Elevated bilirubin.? May be secondary to infection Follow LFTs Hypertension.? Continue home medications History of pulmonary embolus.? Continue Eliquis History of rheumatoid arthritis continue steroids DVT prophylaxis with Eliquis Attending atestation. I participated in the following activities of this patients care:? ? I have evaluated and examined the patient and discussed the care with the HOOKING MACHINE OPERATOR. ?I agree with the HOOKING MACHINE OPERATOR's written findings and plan, except if otherwise noted.? <Alejo Palacio MD - Last Filed: 03/30/21 14:28> Subjective Subjective Date of Service: 03/30/21 <Helen Haque NP - Last Filed: 03/30/21 13:12> 03/30/21 <Alejo Palacio MD - Last Filed: 03/30/21 14:28> Review of Systems Follow up resp failure Still on high flow <Helen Haque NP - Last Filed: 03/30/21 13:12> Physical Exam Vital Signs: Vital Signs: Last Vital Signs Temp 97.5 F 03/30/21 11:18 Pulse 94 03/30/21 11:18 Resp 20 03/30/21 11:22 BP 145/90 H 03/30/21 11:18 Pulse Ox 90 L 03/30/21 11:18 Body Mass Index 33.0 <Helen Haque NP - Last Filed: 03/30/21 13:12> Appearing in no acute distress lung sounds are clear to auscultation heart regular rate rhythm, clear S1, S2 positive bowel sounds, abdomen is soft, nontender neuro patient is alert x3, no focal deficits <Helen Haque NP - Last Filed: 03/30/21 13:12> Objective Data Current Medications Generic Name Dose Route Start Last Admin Trade Name Freq PRN Reason Stop Dose Admin Acetaminophen 650 mg 03/28/21 17:33 03/29/21 11:48 Acetaminophen 325 Mg Tablet PO 650 mg Q6H PRN Administration Pain, Mild (Pain Scale 1-3) Allopurinol 100 mg 03/29/21 09:00 03/30/21 08:18 Allopurinol 100 Mg Tablet PO 100 mg DAILY LATANYA Administration Amlodipine Besylate 10 mg 03/29/21 09:00 03/30/21 08:18 Amlodipine Besylate 10 Mg Tablet PO 10 mg DAILY LATANYA Administration Protocol Apixaban 5 mg 03/28/21 21:00 03/30/21 08:18 Apixaban 5 Mg Tablet PO 5 mg BID LATANYA Administration Piperacillin Sod/Tazobactam 50 mls @ 100 mls/hr 03/28/21 17:45 03/30/21 12:10 Sod 3.375 gm/ Sodium Chloride IV Infused Q6H LATANYA Infusion Methylprednisolone Sodium Succinate 125 mg 03/29/21 10:00 03/30/21 09:20 Methylprednisolone Sod Succ 125 Mg/2 Ml Vial IV 125 mg Q8H LATANYA Administration Patient Own 1 each 03/29/21 11:00 03/30/21 09:20 Medication ( PO 1 each Nintedanib [Ofev] BID LATANYA Administration 150 Mg Capsule) Ondansetron HCl 4 mg 03/28/21 17:33 Ondansetron Hcl 4 Mg/2 Ml Vial IVPUSH Q8H PRN Nausea and Vomiting Pharmacy Consult 1 each 03/28/21 10:55 Consult Rx Perform Med Rec MISCELLANE ONCE PRN Consult order Sodium Chloride 3 ml 03/29/21 00:00 03/30/21 08:19 0.9 % Sodium Chloride Flush 3 Ml Syringe IVFLUSH 3 ml QSHIFT LATANYA Administration Valsartan 160 mg 03/29/21 09:00 03/30/21 08:18 Valsartan 160 Mg Tablet PO 160 mg DAILY LATANYA Administration <Helen Hauqe NP - Last Filed: 03/30/21 13:12> Labs CBC & Chem 7: : 03/30/21 06:23 03/30/21 06:23 <Helen Haque NP - Last Filed: 03/30/21 13:12> Labs: Laboratory Results - last 24 hr 03/30/21 03/30/21 06:23 06:23 MCV 93.4 MCH 30.7 MCHC 32.8 RDW 13.4 Plt Count 147 L MPV 10.1 Absolute Nucleated RBC 0.000 Nucleated RBC % (auto) 0.0 Anion Gap 16 Estim Creat Clear Calc 127.7 Estimated GFR > 60 Random Glucose 129 H D Calcium 10.0 D <Helen Haque NP - Last Filed: 03/30/21 13:12> Microbiology Microbiology Results: Microbiology 03/28/21 11:32 Blood - Venous Blood Culture - Preliminary No growth after 24 hours. 03/28/21 11:22 Blood - Venous Blood Culture - Preliminary No growth after 24 hours. <Helen Haque NP - Last Filed: 03/30/21 13:12> Quality Stroke Does the patient have a stroke diagnosis?: No <Helen Haque NP - Last Filed: 03/30/21 13:12> VTE Prior VTE?: No <Helen Haque NP - Last Filed: 03/30/21 13:12> VTE Risk Level:: Medical - moderate - high <Helen Haque NP - Last Filed: 03/30/21 13:12> VTE Device Contraindication: Treatment Not Indicated <Helen Haque NP - Last Filed: 03/30/21 13:12> VTE Drug Contraindication: N/A - Med Ordered <Helen Haque NP - Last Filed: 03/30/21 13:12>
--- NOTE | 2021-03-30 15:02 | PM.PNPUL ---
Subjective Subjective Date of Service: 03/30/21 Principal diagnosis: ILD/ RESP.FAILURE Interval history: THIS GENTLEMAN CLAIMS THAT HE HAD A BETTER NIGHT. BREATHING WAS EASIER WITH USE OF HIGH-FLOW O2. HE HAS HAD NO FEVER CHILLS OR CHEST PAIN. STILL CONTINUES TO BE SHORT OF BREATH ESPECIALLY DURING CONVERSATION. Objective Data Labs CBC & Chem 7: 03/30/21 06:23 03/30/21 06:23 Labs: Laboratory Results - last 24 hr 03/30/21 03/30/21 06:23 06:23 WBC 12.8 H RBC 4.86 Hgb 14.9 Hct 45.4 MCV 93.4 MCH 30.7 MCHC 32.8 RDW 13.4 Plt Count 147 L MPV 10.1 Absolute Nucleated RBC 0.000 Nucleated RBC % (auto) 0.0 Sodium 144 Potassium 3.9 Chloride 103 Carbon Dioxide 29 Anion Gap 16 BUN 17 H Creatinine 0.70 Estim Creat Clear Calc 127.7 Estimated GFR > 60 Random Glucose 129 H D Calcium 10.0 D Microbiology Microbiology Results: Microbiology 03/28/21 11:32 Blood - Venous Blood Culture - Preliminary No growth after 48 hours. 03/28/21 11:22 Blood - Venous Blood Culture - Preliminary No growth after 48 hours. Review of Systems Review of Systems Yes all other systems are reviewed and are negative Constitutional: Reports fatigue Eyes: Reports no additional eye complaints Reports system reviewed and no additional complaints, except as documented Cardiovascular: Denies chest pain, Reports irregular heart rhythm and Denies leg edema Comments: HE IS MODERATELY DYSPNEIC AND DOES HAVE MODERATE AMOUNT OF COUGH. NO WHEEZING . Gastrointestinal: Reports no additional gastrointestinal complaints Genitourinary: Reports no additional male genitourinary complaints Musculoskeletal: Reports no additional musculoskeletal complaints Skin/Breast: Reports system reviewed and no additional complaints, except as docu Reports system reviewed and no additional complaints, except as documented Psychiatric: Reports no additional psychiatric complaints Endocrine: Reports fatigue Physical Exam Vital Signs: Vital Signs: Last Vital Signs Temp 97.5 F 03/30/21 11:18 Pulse 94 03/30/21 11:18 Resp 20 03/30/21 11:22 BP 145/90 H 03/30/21 11:18 Pulse Ox 90 L 03/30/21 11:18 Body Mass Index 33.0 Const: General: comfortable (BUT MODERATELY DYSPNEIC DURING CONVERSATION), no acute distress, alert and awake Orientation/consciousness: patient oriented x3 HENMT: Head: Yes normal to inspection General nose exam: No nasal polyps present and No nasal discharge present Face and sinus: Yes sinuses nontender Mouth: oropharynx normal Throat: Yes posterior oropharynx normal Eyes: General: appearance normal, both eyes and all related structures Neck: Neck: Yes normal visual inspection, Yes no lymphadenopathy, Yes trachea midline and Yes no JVD Thyroid: Thyroid normal Chest: Chest palpation & inspection: normal inspection of the chest, normal palpation of entire chest wall and no tenderness Resp: Other: HE DOES HAVE GOOD BREATH SOUNDS ON BOTH SIDES, INSPIRATORY PHASES SOMEWHAT HARSH. FINE INSPIRATORY CRACKLES HEARD OVER THE BASILAR AREAS. Cardio: Palpation: normal PMI Rate: regular rate Rhythm: regular rhythm Heart sounds: no gallops and no murmurs Peripheral pulses: Peripheral pulses 2+ throughout GI: Palpation (GI): Soft to palpation, nontender, No hepatosplenomegaly present and no masses Auscultation: normal bowel sounds Back/Spine/Pelvis: Thoracic/Lumbar Spine: thoracic and lumbar spine normal to inspection Skin: General skin exam: no rashes or lesions noted Neuro: General: patient oriented x3 and no focal motor deficits Cranial nerves: Yes CN's II-XII intact bilaterally Extrem: General: Yes normal to inspection, Yes no clubbing, cyanosis or edema and Yes no calf tenderness Psych: Appearance: grossly normal Speech and movement: Normal speech and movement present Procedures Date of Service Date of Service: 03/30/21 Assessment and Plan Assessment and plan (1) Interstitial lung disease due to connective tissue disease: Problem details: HE HAS EXTENSIVE BILATERAL, INTERSTITIAL PNEUMONITIS. THIS SEEMS TO BE DUE TO ACUTE ON CHRONIC, INTERSTITIAL LUNG DISEASE. PROBABLY TRIGGERED BY A ACUTE INFECTION. HE IS BEING TREATED WITH LARGE DOES IV STEROIDS, AND WILL HOPEFULLY START IMPROVING IN THE NEXT FEW DAYS. Status: Acute (2) Rheumatoid arthritis: Problem details: CHRONIC PROBLEM OF RHEUMATOID ARTHRITIS, HAS BEEN TREATED WITH MULTIPLE REGIMENS, CURRENTLY WAS ONLY ON PREDNISONE 10 MG A DAY Status: Acute (3) Pneumonia: Problem details: IS HARD TO SAY WHETHER HE HAS SUPER ADDED BACTERIAL INFECTION, BLOOD CULTURE REPORTS ARE PENDING. ALSO SEROLOGIC TESTS ARE PENDING. AT THIS TIME HE IS BEING TREATED WITH ZOSYN , EMPIRICALLY . Status: Acute (4) Respiratory failure with hypoxia: Problem details: PATIENT HAS PICTURE OF ACUTE RESPIRATORY DISTRESS SYNDROME, SECONDARY TO WORSENING OF INTERSTITIAL LUNG DISEASE. HE IS BEING OXYGENATED WITH HIGH-FLOW O2, CURRENTLY AT 40 L/MINUTE. HE STARTS IMPROVING THE FLOW RATE WILL BE GRADUALLY DECREASED. Status: Acute Time Spent With Patient Time: Total time spent is greater than 50% in coordination of care (as documented) at patient's floor/unit and/or counseling patient: Time with patient: 15 - 24 minutes Progress Note: Quality Stroke Does the patient have a stroke diagnosis?: No
[2021-03-31] VITALS (12 sets, daily range): BP systolic 126–155; BP diastolic 71–90; PULSE 56–104; RESP 18–22; TEMP 36.2–37.1; O2SAT 89–97
[2021-03-31] MEDS: Piperacillin Sodium/Tazobactam 3.375 GM in 0.9 % Sodium Chloride 50 ML IV ×5 (01:00→23:52)
[2021-03-31] MEDS: methylPREDNISolone Sod Succ 125 MG/2 ML VIAL IV ×2 (02:55→09:51)
[2021-03-31 06:46] LABS: Alanine Aminotransferase 27 U/L (0-40); Albumin Level 3.4 g/dL (3.5-5.0); Alkaline Phosphatase 66 U/L (39-117); Anion Gap 13 (12-20); Aspartate Amino Transferase 24 U/L (5-37); Bilirubin Direct 0.5 mg/dL (0.0-0.5); Bilirubin Total 1.2 mg/dL (0.0-1.0); Blood Urea Nitrogen 25 mg/dL (9-16); Calcium 9.8 mg/dL (8.4-10.2); Carbon Dioxide 29 mmol/L (22-29); Chloride 104 mmol/L (96-108); Creatinine Clr Calc Pharmacy 110.3; Estimated Glomerular Filt Rate > 60; Glucose Random 116 mg/dL (60-115); Potassium 3.9 mmol/L (3.3-5.1); Sodium 142 mmol/L (135-145)
[2021-03-31] MEDS: Valsartan 160 MG TABLET PO (08:33)
[2021-03-31] MEDS: amLODIPine Besylate 10 MG TABLET PO (08:34)
[2021-03-31] MEDS: allopurinoL 100 MG TABLET PO (08:38)
[2021-03-31] MEDS: Apixaban 5 MG TABLET PO ×2 (08:38→21:01)
--- NOTE | 2021-03-31 10:59 | PM.PNPUL ---
Subjective Subjective Date of Service: 03/31/21 Principal diagnosis: ILD/ RESP.FAILURE Interval history: HE IS FEELING A LITTLE BETTER FAR RESPIRATORY DISTRESS IS CONCERNED. DID NOT SLEEP WELL AT NIGHT BECAUSE HE IS AWAKENED BY BEING FREQUENTLY CHECKED. HE IS REMAINING AFEBRILE, DOES NOT HAVE MUCH COUGH OR EXPECTORATION Objective Data Labs CBC & Chem 7: 03/30/21 06:23 03/31/21 05:14 Labs: Laboratory Results - last 24 hr 03/31/21 05:14 Sodium 142 Potassium 3.9 Chloride 104 Carbon Dioxide 29 Anion Gap 13 BUN 25 H Creatinine 0.81 Estim Creat Clear Calc 110.3 Estimated GFR > 60 Random Glucose 116 H Calcium 9.8 Total Bilirubin 1.2 H Direct Bilirubin 0.5 AST 24 ALT 27 Alkaline Phosphatase 66 Total Protein 6.0 L Albumin 3.4 L Microbiology Microbiology Results: Microbiology 03/28/21 11:32 Blood - Venous Blood Culture - Preliminary No growth after 48 hours. 03/28/21 11:22 Blood - Venous Blood Culture - Preliminary No growth after 48 hours. Review of Systems Review of Systems Yes all other systems are reviewed and are negative Constitutional: Reports difficulty sleeping, Reports fatigue and Reports lethargy Eyes: Reports no additional eye complaints Reports system reviewed and no additional complaints, except as documented Cardiovascular: Denies chest pain, Denies irregular heart rhythm, Denies leg edema and Reports dyspnea Respiratory: Reports cough (MILD INTERMITTENT) and Reports dyspnea Gastrointestinal: Reports no additional gastrointestinal complaints Genitourinary: Reports no additional male genitourinary complaints Musculoskeletal: Reports no additional musculoskeletal complaints and Reports abnormal gait (NON AMBULATORY AT THIS TIME) Skin/Breast: Reports system reviewed and no additional complaints, except as docu Reports system reviewed and no additional complaints, except as documented and Reports abnormal gait (NON AMBULATORY AT THIS TIME) Psychiatric: Reports no additional psychiatric complaints Endocrine: Reports fatigue Physical Exam Vital Signs: Vital Signs: Last Vital Signs Temp 98.1 F 03/31/21 07:35 Pulse 80 03/31/21 08:34 Resp 22 H 03/31/21 07:42 BP 139/71 03/31/21 08:34 Pulse Ox 94 03/31/21 07:35 Body Mass Index 33.0 Const: General: comfortable, no acute distress (BUT SHORT OF BREATH DURING CONVERSATION), alert and awake Orientation/consciousness: patient oriented x3 HENMT: Head: Yes normal to inspection General nose exam: No nasal polyps present and No nasal discharge present Face and sinus: Yes sinuses nontender Mouth: oropharynx normal Throat: Yes posterior oropharynx normal Eyes: General: appearance normal, both eyes and all related structures Neck: Neck: Yes normal visual inspection, Yes no lymphadenopathy, Yes trachea midline and Yes no JVD Thyroid: Thyroid normal Chest: Chest palpation & inspection: normal inspection of the chest, normal palpation of entire chest wall and no tenderness Resp: Other: HAS GOOD BREATH SOUNDS ON BOTH SIDES. THE BREATH SOUNDS ARE SOMEWHAT HARSH ESPECIALLY IN INSPIRATORY PHASE. FINE INSPIRATORY CREPITATIONS HEARD OVER THE BASILAR AREAS. Cardio: Palpation: normal PMI Rate: regular rate Rhythm: regular rhythm Heart sounds: no gallops and no murmurs GI: Palpation (GI): Soft to palpation, nontender, No hepatosplenomegaly present and no masses Auscultation: normal bowel sounds Back/Spine/Pelvis: Thoracic/Lumbar Spine: thoracic and lumbar spine normal to inspection Skin: General skin exam: no rashes or lesions noted Neuro: General: patient oriented x3 and no focal motor deficits Cranial nerves: Yes CN's II-XII intact bilaterally Extrem: General: Yes normal to inspection, Yes no clubbing, cyanosis or edema and Yes no calf tenderness Psych: Speech and movement: Normal speech and movement present Procedures Date of Service Date of Service: 03/31/21 Assessment and Plan Assessment and plan (1) Interstitial lung disease due to connective tissue disease: Problem details: HE HAS EXTENSIVE BILATERAL, INTERSTITIAL PNEUMONITIS. THIS SEEMS TO BE DUE TO ACUTE ON CHRONIC, INTERSTITIAL LUNG DISEASE. PROBABLY TRIGGERED BY A ACUTE INFECTION. HE IS BEING TREATED WITH LARGE DOES IV STEROIDS, DOES OF SOLU-MEDROL DECREASED TO 80 MG Q.8 HOURS. HOPE THAT HE WILL START IMPROVING IN THE NEXT FEW DAYS. Status: Acute (2) Pneumonia: Problem details: IS HARD TO SAY WHETHER HE HAS SUPER ADDED BACTERIAL INFECTION, BLOOD CULTURE REPORTS ARE PENDING. ALSO SEROLOGIC TESTS ARE PENDING. AT THIS TIME HE IS BEING TREATED WITH ZOSYN , EMPIRICALLY . Status: Acute (3) Acute pneumonitis: Status: Acute (4) Respiratory failure with hypoxia: Problem details: PATIENT HAS PICTURE OF ACUTE RESPIRATORY DISTRESS SYNDROME, SECONDARY TO WORSENING OF INTERSTITIAL LUNG DISEASE. HE IS BEING OXYGENATED WITH HIGH-FLOW O2, CURRENTLY AT 40 L/MINUTE. HE STARTS IMPROVING THE FLOW RATE WILL BE GRADUALLY DECREASED. Status: Acute Time Spent With Patient Time: Total time spent is greater than 50% in coordination of care (as documented) at patient's floor/unit and/or counseling patient: Time with patient: 15 - 24 minutes Progress Note: Quality Stroke Does the patient have a stroke diagnosis?: No
[2021-03-31 11:29] LABS: Erythrocyte Sedimentation Rate 67 MM/HR (0-15)
--- NOTE | 2021-03-31 11:37 | HO.PM.IMPN ---
Subjective Subjective Date of Service: 03/31/21 Interval History: Seen and examined this morning Reports slight improvement in breathing. Still short of breath with conversation No overnight events Review of Systems Review of Systems: Yes all other systems are reviewed and are negative Constitutional Constitutional: Denies chills and Denies fever(s) Cardiovascular Cardiovascular: Denies chest pain Gastrointestinal Gastrointestinal: Denies abdominal pain Physical Exam Vital Signs: Vital Signs: Last Vital Signs Temp 97.6 F 03/31/21 11:13 Pulse 72 03/31/21 11:13 Resp 22 H 03/31/21 11:27 BP 134/87 03/31/21 11:13 Pulse Ox 94 03/31/21 11:13 Body Mass Index 33.0 Const: Nutritional Appearance: well nourished Orientation/consciousness: patient oriented x3 HENMT: Head: Yes normocephalic and Yes atraumatic Eyes: Sclerae: sclerae normal Chest: Chest palpation & inspection: normal inspection of the chest Resp: Other: Dry bibasilar rales ; on high-flow oxygen Effort & Inspection: normal respiratory effort Cardio: Rate: regular rate Rhythm: regular rhythm GI: Palpation (GI): Soft to palpation and nontender Neuro: General: patient oriented x3 Cranial nerves: Yes CN's II-XII intact bilaterally and Yes Bilaterally intact EOM present Objective Data Active Medications Acetaminophen (Acetaminophen 325 Mg Tablet) 650 mg PO Q6H PRN PRN Reason: Pain, Mild (Pain Scale 1-3) Last Admin: 03/29/21 11:48 Dose: 650 mg Documented by: CHIVO Albuterol/Ipratropium (Albuterol/Iprat 2.5/0.5mg 3 Ml Ampul.Neb) 3 ml INHALE RQ6H WHILE AWAKE [facility] Allopurinol (Allopurinol 100 Mg Tablet) 100 mg PO DAILY [facility] Last Admin: 03/31/21 08:38 Dose: 100 mg Documented by: KELLY Amlodipine Besylate (Amlodipine Besylate 10 Mg Tablet) 10 mg PO DAILY [facility]; Protocol Last Admin: 03/31/21 08:34 Dose: 10 mg Documented by: KELLY Apixaban (Apixaban 5 Mg Tablet) 5 mg PO BID [facility] Last Admin: 03/31/21 08:38 Dose: 5 mg Documented by: KELLY Guaifenesin (Guaifenesin La 600 Mg Tab.Er.12h) 1,200 mg PO BID [facility] Piperacillin Sod/Tazobactam (Sod 3.375 gm/ Sodium Chloride) 50 mls @ 100 mls/hr IV Q6H [facility] Last Infusion: 03/31/21 07:35 Dose: 0 mls/hr Documented by: KELLY Methylprednisolone Sodium Succinate (Methylprednisolone Sod Succ 125 Mg/2 Ml Vial) 80 mg IV Q8H [facility] Last Admin: 03/31/21 11:25 Dose: Not Given Documented by: KELLY Non-Admin Reason: previously administered 125 mg at 10 am Patient Own Medication ( Nintedanib [Ofev] 150 Mg Capsule) 1 each PO BID [facility] Last Admin: 03/31/21 08:38 Dose: 1 each Documented by: KELLY Ondansetron HCl (Ondansetron Hcl 4 Mg/2 Ml Vial) 4 mg IVPUSH Q8H PRN PRN Reason: Nausea and Vomiting Pharmacy Consult (Consult Rx Perform Med Rec) 1 each MISCELLANE ONCE PRN PRN Reason: Consult order Sodium Chloride (0.9 % Sodium Chloride Flush 3 Ml Syringe) 3 ml IVFLUSH QSHIFT [facility] Last Admin: 03/31/21 08:39 Dose: Not Given Documented by: KELLY Non-Admin Reason: IV Running Valsartan (Valsartan 160 Mg Tablet) 160 mg PO DAILY [facility] Last Admin: 03/31/21 08:33 Dose: 160 mg Documented by: KELLY Labs CBC & Chem 7: 03/30/21 06:23 03/31/21 05:14 Labs: Laboratory Results - last 24 hr 03/31/21 03/31/21 03/31/21 05:14 10:43 10:43 ESR 67 H Anion Gap 13 Estim Creat Clear Calc 110.3 Estimated GFR > 60 Random Glucose 116 H Calcium 9.8 Total Bilirubin 1.2 H Direct Bilirubin 0.5 AST 24 ALT 27 Alkaline Phosphatase 66 C-Reactive Protein 6.40 H Total Protein 6.0 L Albumin 3.4 L Microbiology Microbiology Results: Microbiology 03/28/21 11:32 Blood Culture - Preliminary Blood - Venous No growth after 48 hours. 03/28/21 11:22 Blood Culture - Preliminary Blood - Venous No growth after 48 hours. Assessment and Plan (1) Respiratory failure with hypoxia: Status: Acute Assessment and Plan: 70-year-old man admitted with community-acquired pneumonia. He has a history of interstitial lung disease. he had been on Levaquin for 2 weeks and more recently off for 2 weeks. Acute on chronic hypoxic respiratory failure. Community-acquired pneumonia. Interstitial lung disease -continue IV Zosyn -continue IV Solu-Medrol -pulmonology following -Follow cultures -Continue supplemental oxygen, wean as tolerated Thrombocytopenia. May be secondary to infection Follow CBC Elevated bilirubin. May be secondary to infection Follow LFTs Hypertension. Continue valsartan, Norvasc History of pulmonary embolus. Continue Eliquis History of rheumatoid arthritis continue steroids DVT prophylaxis with Anjelica Attending Dr. Benson Quality Stroke Does the patient have a stroke diagnosis?: No VTE Prior VTE?: No VTE Risk Level:: Medical - moderate - high VTE Device Contraindication: Treatment Not Indicated VTE Drug Contraindication: N/A - Med Ordered
[2021-03-31 12:03] LABS: Rheumatoid Factor 383.3 IU/mL (<15.0)
[2021-03-31 12:30] LABS: Procalcitonin 0.08 ng/mL
[2021-03-31] MEDS: Albuterol/Iprat 2.5/0.5MG 3 ML AMPUL.NEB INHALE (13:21)
[2021-03-31] MEDS: 0.9 % Sodium Chloride Flush 3 ML SYRINGE IVFLUSH ×2 (15:58→23:52)
[2021-03-31] MEDS: methylPREDNISolone Sod Succ 125 MG/2 ML VIAL 80 MG IV (18:21)
[2021-03-31] MEDS: guaiFENesin LA 600 MG TAB.ER.12H 1200 MG PO (21:01)
[2021-04-01] VITALS (16 sets, daily range): BP systolic 132–161; BP diastolic 70–89; PULSE 67–129; RESP 18–24; TEMP 36.3–36.9; O2SAT 83–94
[2021-04-01] MEDS: methylPREDNISolone Sod Succ 125 MG/2 ML VIAL 80 MG IV ×3 (02:53→17:36)
[2021-04-01 03:06] LABS: Strep Pneumo Ag urine Not Detected (Not Detected)
[2021-04-01] MEDS: Piperacillin Sodium/Tazobactam 3.375 GM in 0.9 % Sodium Chloride 50 ML IV ×3 (05:40→17:38)
[2021-04-01] MEDS: Albuterol/Iprat 2.5/0.5MG 3 ML AMPUL.NEB INHALE ×4 (06:46→19:59)
[2021-04-01] MEDS: 0.9 % Sodium Chloride Flush 3 ML SYRINGE IVFLUSH ×3 (07:56→20:03)
[2021-04-01] MEDS: Apixaban 5 MG TABLET PO ×2 (07:56→20:01)
[2021-04-01] MEDS: guaiFENesin LA 600 MG TAB.ER.12H 1200 MG PO ×2 (07:56→20:01)
[2021-04-01] MEDS: Valsartan 160 MG TABLET PO (07:56)
[2021-04-01] MEDS: allopurinoL 100 MG TABLET PO (07:57)
[2021-04-01] MEDS: amLODIPine Besylate 10 MG TABLET PO (07:57)
--- NOTE | 2021-04-01 09:34 | PM.PNPUL ---
Subjective Subjective Date of Service: 04/01/21 Principal diagnosis: ILD/ RESP.FAILURE Interval history: This 70 years old gentleman is just holding stable, He is afebrile, has moderate amount of cough which is mostly nonproductive. Denies chest pain. Remains moderately dyspneic. Remains in good spirits. On examination, during conversation he is dyspneic, throat is clear. Neck shows no jugular venous distention trachea in midline. Chest percussion note is resonant, breath sounds are somewhat bronchial in corrected, harsh in inspiratory phase. Seems that he is moving somewhat more air, fine Creps over the basilar areas Cardiovascular exam is within normal limits. He is on high-flow O2 40 L/minute at this time, seems to be tolerating okay. Plan is to continue the present medical regimen, follow him closely. Advised to do deep breathing exercises, may use incentive spirometry. Objective Data Labs CBC & Chem 7: 03/30/21 06:23 03/31/21 05:14 Labs: Laboratory Results - last 24 hr 03/29/21 03/31/21 03/31/21 11:58 10:43 10:43 ESR 67 H C-Reactive Protein 6.40 H Procalcitonin Rheumatoid Factor 383.3 H Ur Strep pneumoniae Ag Not Detected 03/31/21 10:43 ESR C-Reactive Protein Procalcitonin 0.08 Rheumatoid Factor Ur Strep pneumoniae Ag Microbiology Microbiology Results: Microbiology 03/28/21 11:32 Blood - Venous Blood Culture - Preliminary No growth after 48 hours. 03/28/21 11:22 Blood - Venous Blood Culture - Preliminary No growth after 48 hours. Physical Exam Vital Signs: Vital Signs: Last Vital Signs Temp 98.4 F 04/01/21 08:00 Pulse 129 H 04/01/21 08:00 Resp 20 04/01/21 08:00 BP 146/82 H 04/01/21 08:00 Pulse Ox 91 L 04/01/21 08:00 Body Mass Index 33.0 Procedures Date of Service Date of Service: 04/01/21 Assessment and Plan Assessment and plan (1) Pulmonary fibrosis: Status: Acute (2) Interstitial lung disease due to connective tissue disease: Problem details: HE HAS EXTENSIVE BILATERAL, INTERSTITIAL PNEUMONITIS. THIS SEEMS TO BE DUE TO ACUTE ON CHRONIC, INTERSTITIAL LUNG DISEASE. PROBABLY TRIGGERED BY A ACUTE INFECTION. HE IS BEING TREATED WITH LARGE DOES IV STEROIDS, DOES OF SOLU-MEDROL DECREASED TO 80 MG Q.8 HOURS. HOPE THAT HE WILL START IMPROVING IN THE NEXT FEW DAYS. Status: Acute (3) Pneumonia: Problem details: IS HARD TO SAY WHETHER HE HAS SUPER ADDED BACTERIAL INFECTION, BLOOD CULTURE REPORTS ARE PENDING. ALSO SEROLOGIC TESTS ARE PENDING. AT THIS TIME HE IS BEING TREATED WITH ZOSYN , EMPIRICALLY . TRY TO GET SPUTUM FOR GRAM STAIN , C/S Status: Acute (4) Respiratory failure with hypoxia: Problem details: PATIENT HAS PICTURE OF ACUTE RESPIRATORY DISTRESS SYNDROME, SECONDARY TO WORSENING OF INTERSTITIAL LUNG DISEASE. HE IS BEING OXYGENATED WITH HIGH-FLOW O2, CURRENTLY AT 40 L/MINUTE. HE STARTS IMPROVING THE FLOW RATE WILL BE GRADUALLY DECREASED. Status: Acute Time Spent With Patient Time: Total time spent is greater than 50% in coordination of care (as documented) at patient's floor/unit and/or counseling patient: Time with patient: 15 - 24 minutes Progress Note: Quality Stroke Does the patient have a stroke diagnosis?: No
[2021-04-01 12:21] LABS: Anti DNA DS Antibody <1 IU/mL
--- NOTE | 2021-04-01 12:46 | MHC.CM.PN ---
Per ROUNDS discussion, Patient is not yet medically cleared for dc (IV Solu Medrol, IV Zosyn, Hypoxic/still requiring high flow O2). Home is the goal for dc and CM will continue to follow for possible need to adjust the dc plan.
--- NOTE | 2021-04-01 12:58 | P.PNIM_ITS ---
Subjective Subjective Date of Service: 04/01/21 Interval History: Seen and examined this morning Observed sitting up in chair. Patient is happy to be out of bed. Reports slight improvement however patient becomes more hypoxic with even the slightest movement Still requiring high-flow oxygen Review of Systems Review of Systems: Yes all other systems are reviewed and are negative Constitutional Constitutional: Denies chills and Denies fever(s) Cardiovascular Cardiovascular: Denies chest pain Gastrointestinal Gastrointestinal: Denies abdominal pain Physical Exam Vital Signs: Vital Signs: Last Vital Signs Temp 98.2 F 04/01/21 10:56 Pulse 93 04/01/21 10:56 Resp 22 H 04/01/21 11:33 BP 135/77 04/01/21 10:56 Pulse Ox 93 04/01/21 10:56 Body Mass Index 33.0 Const: Nutritional Appearance: well nourished Orientation/consciousness: patient oriented x3 HENMT: Head: Yes normocephalic and Yes atraumatic Eyes: Sclerae: sclerae normal Chest: Chest palpation & inspection: normal inspection of the chest Resp: Other: Dry bibasilar rales ; on high-flow oxygen; becomes short of breath with conversation Effort & Inspection: Actively coughing and no use of accessory muscles Cardio: Rate: regular rate Rhythm: regular rhythm GI: Palpation (GI): Soft to palpation and nontender Neuro: General: patient oriented x3 Cranial nerves: Yes CN's II-XII intact bilaterally and Yes Bilaterally intact EOM present Objective Data Active Medications Acetaminophen (Acetaminophen 325 Mg Tablet) 650 mg PO Q6H PRN PRN Reason: Pain, Mild (Pain Scale 1-3) Last Admin: 03/29/21 11:48 Dose: 650 mg Documented by: CHIVO Albuterol/Ipratropium (Albuterol/Iprat 2.5/0.5mg 3 Ml Ampul.Neb) 3 ml INHALE RQ6H WHILE AWAKE [facility] Last Admin: 04/01/21 07:43 Dose: 3 ml Documented by: WALTER Allopurinol (Allopurinol 100 Mg Tablet) 100 mg PO DAILY [facility] Last Admin: 04/01/21 07:57 Dose: 100 mg Documented by: EMEKA Amlodipine Besylate (Amlodipine Besylate 10 Mg Tablet) 10 mg PO DAILY [facility]; Protocol Last Admin: 04/01/21 07:57 Dose: 10 mg Documented by: EMEKA Apixaban (Apixaban 5 Mg Tablet) 5 mg PO BID [facility] Last Admin: 04/01/21 07:56 Dose: 5 mg Documented by: EMEKA Guaifenesin (Guaifenesin La 600 Mg Tab.Er.12h) 1,200 mg PO BID [facility] Last Admin: 04/01/21 07:56 Dose: 1,200 mg Documented by: EMEKA Piperacillin Sod/Tazobactam (Sod 3.375 gm/ Sodium Chloride) 50 mls @ 100 mls/hr IV Q6H [facility] Last Admin: 04/01/21 12:12 Dose: 100 mls/hr Documented by: EMEKA Methylprednisolone Sodium Succinate (Methylprednisolone Sod Succ 125 Mg/2 Ml Vial) 80 mg IV Q8H [facility] Last Admin: 04/01/21 12:12 Dose: 80 mg Documented by: EMEKA Patient Own Medication ( Nintedanib [Ofev] 150 Mg Capsule) 1 each PO BID [facility] Last Admin: 04/01/21 07:57 Dose: 1 each Documented by: EMEKA Ondansetron HCl (Ondansetron Hcl 4 Mg/2 Ml Vial) 4 mg IVPUSH Q8H PRN PRN Reason: Nausea and Vomiting Pharmacy Consult (Consult Rx Perform Med Rec) 1 each MISCELLANE ONCE PRN PRN Reason: Consult order Sodium Chloride (0.9 % Sodium Chloride Flush 3 Ml Syringe) 3 ml IVFLUSH QSHIFT [facility] Last Admin: 04/01/21 07:56 Dose: 3 ml Documented by: EMEKA Valsartan (Valsartan 160 Mg Tablet) 160 mg PO DAILY [facility] Last Admin: 04/01/21 07:56 Dose: 160 mg Documented by: EMEKA Labs CBC & Chem 7: 03/30/21 06:23 03/31/21 05:14 Labs: Laboratory Results - last 24 hr 03/29/21 03/31/21 11:58 10:43 Double Strand DNA Ab <1 Ur Strep pneumoniae Ag Not Detected Assessment and Plan (1) Respiratory failure with hypoxia: Status: Acute Assessment and Plan: This is a 70-year-old man admitted with community-acquired pneumonia. He has a history of interstitial lung disease. he had been on Levaquin for 2 weeks and more recently off for 2 weeks. Acute on chronic hypoxic respiratory failure. Interstitial lung disease on 2L home o2, being treated with OFEV Covid neg, RPP neg, legionalla pending Still requiring high-flow oxygen, desaturates with minimal movement -continue empiric IV Zosyn, will add doxy to cover for atypicals. Will check MRSA nares although procalcitonin low -? concern for opportunistic infection given immunocompromised on Xeljanz will consult ID -continue IV Solu-Medrol -pulmonology following, unable to have bronch at this time due to respiratory status -blood cultures negative, sputum culture pending -Continue supplemental oxygen, wean as tolerated Thrombocytopenia. May be secondary to infection Follow CBC Elevated bilirubin. May be secondary to infection Trending down Hypertension. Continue valsartan, Norvasc History of pulmonary embolus. Continue Eliquis History of rheumatoid arthritis continue steroids DVT prophylaxis with John[facility] Attending Dr. Benson Quality Stroke Does the patient have a stroke diagnosis?: No VTE Prior VTE?: No VTE Risk Level:: Medical - moderate - high VTE Device Contraindication: Treatment Not Indicated VTE Drug Contraindication: N/A - Med Ordered
[2021-04-01] MEDS: Doxycycline Hyclate 100 MG in 0.9 % Sodium Chloride 250 ML 166.67 MG IV (14:13)
--- NOTE | 2021-04-01 22:37 | W.PM.IDCN ---
History of Present Illness Data of Consult Service Date: 04/01/21 Requesting physician: Ambrocio Haque Primary Care Provider: Santiago Odom MD [facility] Reason for consult: shortness of breath He presents to hospital with shortness of breath for about 3 1/2 weeks. He has been on Xeljanz. He has had productive sputum,green phlegm. He was started on Levaquin by his PCP,Santiago Pelayo for seven days and then another 7 days of po Levaquin. He was given po Prednisone after, 40 mg for five days and then 20 mg for five days He went to [facility] [place] in between antibiotics and steroids. He has no pets. He has had exposure to second hand smoke and lead in the past. Review of Systems Review of Systems: Yes all other systems are reviewed and are negative [facility] Past Medical History Medical History Acute pneumonitis Chronic rhinitis Cough History of pulmonary embolism Interstitial lung disease due to connective tissue disease IPF (idiopathic pulmonary fibrosis) Pulmonary fibrosis Respiratory failure with hypoxia Rheumatoid arthritis Syncope Family History Family history: reviewed and not pertinent Social History Social History Household Members: Spouse Housing: House Patient Tobacco Use Status: Never used Tobacco service: No Current occupational status: retired Meds Allergies Allergy/AdvReac Type Severity Reaction Status Date / Time Bee Stings Allergy Mild Anaphylaxis Uncoded 08/27/20 08:57 Active Medications: Current Medications Generic Name Dose Route Start Last Admin Trade Name Freq PRN Reason Stop Dose Admin Acetaminophen 650 mg 03/28/21 17:33 03/29/21 11:48 Acetaminophen 325 Mg Tablet PO 650 mg Q6H PRN Administration Pain, Mild (Pain Scale 1-3) Albuterol/Ipratropium 3 ml 03/31/21 14:00 04/01/21 19:59 Albuterol/Iprat 2.5/0.5mg 3 Ml Ampul.Neb INHALE 3 ml RQ6H WHILE AWAKE [facility] Administration Allopurinol 100 mg 03/29/21 09:00 04/01/21 07:57 Allopurinol 100 Mg Tablet PO 100 mg DAILY [facility] Administration Amlodipine Besylate 10 mg 03/29/21 09:00 04/01/21 07:57 Amlodipine Besylate 10 Mg Tablet PO 10 mg DAILY [facility] Administration Protocol Apixaban 5 mg 03/28/21 21:00 04/01/21 20:01 Apixaban 5 Mg Tablet PO 5 mg BID [facility] Administration Guaifenesin 1,200 mg 03/31/21 21:00 04/01/21 20:01 Guaifenesin La 600 Mg Tab.Er.12h PO 1,200 mg BID [facility] Administration Piperacillin Sod/Tazobactam 50 mls @ 100 mls/hr 03/28/21 17:45 04/01/21 18:34 Sod 3.375 gm/ Sodium Chloride IV Infused Q6H [facility] Infusion Doxycycline Hyclate 100 mg/ 250 mls @ 166.67 mls/hr 04/01/21 13:00 04/01/21 16:10 Sodium Chloride IV Infused Q12H [facility] Infusion Methylprednisolone Sodium Succinate 80 mg 03/31/21 10:57 04/01/21 17:36 Methylprednisolone Sod Succ 125 Mg/2 Ml Vial IV 80 mg Q8H [facility] Administration Patient Own 1 each 03/29/21 11:00 04/01/21 20:01 Medication ( PO 1 each Nintedanib [Ofev] BID [facility] Administration 150 Mg Capsule) Ondansetron HCl 4 mg 03/28/21 17:33 Ondansetron Hcl 4 Mg/2 Ml Vial IVPUSH Q8H PRN Nausea and Vomiting Pharmacy Consult 1 each 03/28/21 10:55 Consult Rx Perform Med Rec MISCELLANE ONCE PRN Consult order Sodium Chloride 3 ml 03/29/21 00:00 04/01/21 20:03 0.9 % Sodium Chloride Flush 3 Ml Syringe IVFLUSH 3 ml QSHIFT [facility] Administration Valsartan 160 mg 03/29/21 09:00 04/01/21 07:56 Valsartan 160 Mg Tablet PO 160 mg DAILY [facility] Administration Home Medications Medication Instructions Recorded Confirmed Last Taken Type allopurinol 100 mg tablet 100 mg PO DAILY 05/26/20 03/28/21 03/28/21 History amlodipine 10 mg tablet 10 mg PO DAILY 05/26/20 03/28/21 03/28/21 History olmesartan 40 mg tablet 40 mg PO DAILY 05/26/20 03/28/21 Unknown History prednisone 10 mg tablet 10 mg PO DAILY 05/26/20 03/28/2103/28/21 History tadalafil 20 mg tablet 20 mg PO DAILY PRN 10/05/20 03/28/21 Unknown History epinephrine 0.3 mg/0.3 mL 0.3 mg IM ONCE PRN 01/20/21 03/28/21 Unknown History injection, auto-injector Physical Exam Vital Signs: Vital Signs: Last Vital Signs Temp 97.6 F 04/01/21 18:56 Pulse 86 04/01/21 18:56 Resp 22 H 04/01/21 19:59 BP 138/82 04/01/21 18:56 Pulse Ox 93 04/01/21 18:56 Body Mass Index 33.0 Const: General: cooperative HENMT: Head: Yes normal to inspection Mouth: Normal oral and palatal mucosa present Eyes: General: appearance normal, both eyes and all related structures Resp: Effort & Inspection: tachypneic Auscultation: vesicular breath sounds Cardio: Rate: regular rate Rhythm: regular rhythm GI: Palpation (GI): Soft to palpation and nontender Skin: General skin exam: no rashes or lesions noted Results Labs CBC & Chem 7: 04/11/21 05:20 04/11/21 15:37 Microbiology Microbiology Results: Microbiology 03/28/21 11:32 Blood - Venous Blood Culture - Preliminary No growth after 48 hours. 03/28/21 11:22 Blood - Venous Blood Culture - Preliminary No growth after 48 hours. Assessment and Plan (1) Respiratory failure with hypoxia: Status: Acute He has possible opportunistic infection There is possible atypical such as chlamydia,less likely Legionella He has less likely PCP Suggest Would continue Zosyn and Doxycycline Consider Vancomycin and Mepron cover PJP if not improving. check cryptococcal antigen. Steroids may be appropriate
[2021-04-02] VITALS (15 sets, daily range): BP systolic 134–163; BP diastolic 68–90; PULSE 52–113; RESP 16–22; TEMP 36.4–36.7; O2SAT 84–95
[2021-04-02] MEDS: Piperacillin Sodium/Tazobactam 3.375 GM in 0.9 % Sodium Chloride 50 ML IV ×4 (00:03→18:38)
[2021-04-02] MEDS: Doxycycline Hyclate 100 MG in 0.9 % Sodium Chloride 250 ML 166.67 MG IV ×2 (00:42→12:36)
[2021-04-02] MEDS: methylPREDNISolone Sod Succ 125 MG/2 ML VIAL 80 MG IV ×3 (02:24→18:38)
[2021-04-02 06:53] LABS: Hematocrit 42.9 % (42-52); Hemoglobin 13.7 g/dl (14.0-18.0); Mean Corpuscular HGB Conc 31.9 g/dl (31.0-36.0); Mean Corpuscular Hemoglobin 30.4 pg (27.0-33.0); Mean Corpuscular Volume 95.3 fL (80-98); Mean Platelet Volume 9.9 fL (9.4-12.4); Platelet Count 186 X10*3/uL (160-400); Red Cell Distribution Width 13.9 % (11.0-16.0)
[2021-04-02 07:18] LABS: Anion Gap 13 (12-20); Blood Urea Nitrogen 24 mg/dL (9-16); Calcium 9.3 mg/dL (8.4-10.2); Carbon Dioxide 30 mmol/L (22-29); Chloride 105 mmol/L (96-108); Creatinine Clr Calc Pharmacy 125.9; Estimated Glomerular Filt Rate > 60; Glucose Random 95 mg/dL (60-115); Potassium 3.9 mmol/L (3.3-5.1); Sodium 144 mmol/L (135-145)
[2021-04-02] MEDS: Albuterol/Iprat 2.5/0.5MG 3 ML AMPUL.NEB INHALE ×3 (07:34→19:35)
[2021-04-02 07:37] LABS: Legionella Ag Urine Not Detected (Not Detected)
[2021-04-02] MEDS: Apixaban 5 MG TABLET PO ×2 (08:59→19:51)
[2021-04-02] MEDS: Valsartan 160 MG TABLET PO (08:59)
[2021-04-02] MEDS: guaiFENesin LA 600 MG TAB.ER.12H 1200 MG PO ×2 (09:06→19:51)
[2021-04-02] MEDS: allopurinoL 100 MG TABLET PO (09:06)
[2021-04-02] MEDS: 0.9 % Sodium Chloride Flush 3 ML SYRINGE IVFLUSH ×3 (09:07→19:52)
[2021-04-02] MEDS: amLODIPine Besylate 10 MG TABLET PO (09:07)
--- NOTE | 2021-04-02 11:04 | PM.PNPUL ---
Subjective Subjective Date of Service: 04/02/21 Principal diagnosis: ILD/ RESP.FAILURE Interval history: PATIENT CLAIMS TO BE LITTLE MORE COMFORTABLE TODAY, AFEBRILE, DENIES ANY CHEST PAIN. HOWEVER HE STILL HAS SIGNIFICANT DYSPNEA, ALSO INTERMITTENT COUGH. HE DESATURATIONS VERY QUICKLY ON ANY PHYSICAL EFFORT. STILL CONTINUED ON HIGH-FLOW AT 40 L/MINUTE. Objective Data Labs CBC & Chem 7: 04/02/21 05:06 04/02/21 05:06 Labs: Laboratory Results - last 24 hr 03/29/21 03/31/21 04/02/21 11:58 10:43 05:06 WBC 16.0 H RBC 4.50 L Hgb 13.7 L Hct 42.9 MCV 95.3 MCH 30.4 MCHC 31.9 RDW 13.9 Plt Count 186 D MPV 9.9 Absolute Nucleated RBC 0.000 Nucleated RBC % (auto) 0.0 Sodium Potassium Chloride Carbon Dioxide Anion Gap BUN Creatinine Estim Creat Clear Calc Estimated GFR Random Glucose Calcium Double Strand DNA Ab <1 Ur L.pneumophila Ag Not Detected 04/02/21 05:06 WBC RBC Hgb Hct MCV MCH MCHC RDW Plt Count MPV Absolute Nucleated RBC Nucleated RBC % (auto) Sodium 144 Potassium 3.9 Chloride 105 Carbon Dioxide 30 H Anion Gap 13 BUN 24 H Creatinine 0.71 Estim Creat Clear Calc 125.9 Estimated GFR > 60 Random Glucose 95 Calcium 9.3 Double Strand DNA Ab Ur L.pneumophila Ag Microbiology Microbiology Results: Microbiology 04/02/21 08:12 Sputum - Expectorated Gram Stain - Final 04/02/21 08:12 Sputum - Expectorated Sputum Culture - Final 03/28/21 11:32 Blood - Venous Blood Culture - Preliminary No growth after 48 hours. 03/28/21 11:22 Blood - Venous Blood Culture - Preliminary No growth after 48 hours. Physical Exam Vital Signs: Vital Signs: Last Vital Signs Temp 97.5 F 04/02/21 08:00 Pulse 113 H 04/02/21 09:07 Resp 18 04/02/21 08:00 BP 134/68 04/02/21 09:07 Pulse Ox 86 L 04/02/21 08:00 Body Mass Index 33.0 ON EXAMINATION HE IS CONVERSING IN SHORT SENTENCES. THROAT IS CLEAR NECK NO JVD TRACHEA MIDLINE CHEST HE DOES HAVE GOOD BREATH SOUNDS ON BOTH SIDES WITH MOM SLIGHT BRONCHIAL CHARACTER , A FEW INSPIRATORY CRACKLES OVER THE BASILAR AREAS. CARDIOVASCULAR EXAM IS OKAY. EXTREMITIES NO EDEMA OR VARICOSITIES Procedures Date of Service Date of Service: 04/02/21 Assessment and Plan Assessment and plan (1) Acute pneumonitis: Status: Acute Assessment and Plan: HE HAS ACUTE ON CHRONIC BILATERAL DIFFUSE PNEUMONITIS. BEING TREATED WITH IV SOLU-MEDROL 80 MG Q.8 HRS. AND OXYGENATION WITH HIGH-FLOW (2) Pneumonia: Problem details: IS HARD TO SAY WHETHER HE HAS SUPER ADDED BACTERIAL INFECTION, BLOOD CULTURE REPORTS ARE PENDING. ALSO SEROLOGIC TESTS ARE PENDING. AT THIS TIME HE IS BEING TREATED WITH ZOSYN , AND DOXYCYCLINE , EMPIRICALLY . BLOOD CULTURES ARE NEGATIVE. SPUTUM G STAIN AND CULTURE PENDING. Status: Acute (3) Interstitial lung disease due to connective tissue disease: Problem details: HE HAS EXTENSIVE BILATERAL, INTERSTITIAL PNEUMONITIS. THIS SEEMS TO BE DUE TO ACUTE ON CHRONIC, INTERSTITIAL LUNG DISEASE. PROBABLY TRIGGERED BY A ACUTE INFECTION. HE IS BEING TREATED WITH LARGE DOES IV STEROIDS, DOES OF SOLU-MEDROL DECREASED TO 80 MG Q.8 HOURS. HOPE THAT HE WILL START IMPROVING IN THE NEXT FEW DAYS. Status: Acute (4) Respiratory failure with hypoxia: Problem details: PATIENT HAS PICTURE OF ACUTE RESPIRATORY DISTRESS SYNDROME, SECONDARY TO WORSENING OF INTERSTITIAL LUNG DISEASE. HE IS BEING OXYGENATED WITH HIGH-FLOW O2, CURRENTLY AT 40 L/MINUTE. HE STARTS IMPROVING THE FLOW RATE WILL BE GRADUALLY DECREASED. Status: Acute Time Spent With Patient Time: Total time spent is greater than 50% in coordination of care (as documented) at patient's floor/unit and/or counseling patient: Time with patient: 15 - 24 minutes Progress Note: Quality Stroke Does the patient have a stroke diagnosis?: No
[2021-04-02 11:48] LABS: MRSA Nasal PCR NEGATIVE (Negative); SA Nasal PCR NEGATIVE (Negative)
[2021-04-02 12:12] LABS: Myeloperoxidase Antibody <1.0 AI; Proteinase 3 PR3 Antibodies <1.0 AI
--- NOTE | 2021-04-02 13:39 | PM.IMPN ---
Progress Note: A&P (1) Respiratory failure with hypoxia: Status: Acute Assessment and Plan: This is a 70-year-old man admitted with community-acquired pneumonia.? He has a history of interstitial lung disease.? he had been on Levaquin for 2 weeks and more recently off for 2 weeks. Acute on chronic hypoxic respiratory failure.? Interstitial lung disease on 2L home o2, being treated with OFEV Covid neg, RPP neg, legionalla/ strep pneumo neg Still requiring high-flow oxygen, desaturates with minimal movement -continue empiric IV Zosyn, will add doxy to cover for atypicals. nasal MRSA neg -? concern for opportunistic infection given immunocompromised on Xeljanz -continue IV Solu-Medrol ID and pulmonology following, unable to have bronch at this time due to respiratory status -blood cultures negative, sputum culture pending -Continue supplemental oxygen, wean as tolerated Thrombocytopenia.? baseline Follow CBC Elevated bilirubin.? baseline Hypertension.? Continue valsartan, Norvasc History of pulmonary embolus.? Continue Eliquis History of rheumatoid arthritis continue steroids DVT prophylaxis with Anjelica Attending Dr. Palacio Subjective Subjective Date of Service: 04/02/21 Review of Systems Follow up resp failure still on high flow Physical Exam Vital Signs: Vital Signs: Last Vital Signs Temp 97.5 F 04/02/21 12:00 Pulse 92 04/02/21 12:00 Resp 18 04/02/21 12:00 BP 163/80 H 04/02/21 12:00 Pulse Ox 84 L 04/02/21 12:00 Body Mass Index 33.0 Appearing in no acute distress lung sounds coarse heart regular rate rhythm, clear S1, S2 positive bowel sounds, abdomen is soft, nontender neuro patient is alert x3, no focal deficits Objective Data Current Medications Generic Name Dose Route Start Last Admin Trade Name Freq PRN Reason Stop Dose Admin Acetaminophen 650 mg 03/28/21 17:33 03/29/21 11:48 Acetaminophen 325 Mg Tablet PO 650 mg Q6H PRN Administration Pain, Mild (Pain Scale 1-3) Albuterol/Ipratropium 3 ml 03/31/21 14:00 04/02/21 07:34 Albuterol/Iprat 2.5/0.5mg 3 Ml Ampul.Neb INHALE 3 ml RQ6H WHILE AWAKE [facility] Administration Allopurinol 100 mg 03/29/21 09:00 04/02/21 09:06 Allopurinol 100 Mg Tablet PO 100 mg DAILY [facility] Administration Amlodipine Besylate 10 mg 03/29/21 09:00 04/02/21 09:07 Amlodipine Besylate 10 Mg Tablet PO 10 mg DAILY [facility] Administration Protocol Apixaban 5 mg 03/28/21 21:00 04/02/21 08:59 Apixaban 5 Mg Tablet PO 5 mg BID [facility] Administration Guaifenesin 1,200 mg 03/31/21 21:00 04/02/21 09:06 Guaifenesin La 600 Mg Tab.Er.12h PO 1,200 mg BID [facility] Administration Piperacillin Sod/Tazobactam 50 mls @ 100 mls/hr 03/28/21 17:45 04/02/21 13:37 Sod 3.375 gm/ Sodium Chloride IV Infused Q6H [facility] Infusion Doxycycline Hyclate 100 mg/ 250 mls @ 166.67 mls/hr 04/01/21 13:00 04/02/21 12:36 Sodium Chloride IV 166.67 mls/hr Q12H [facility] Administration Methylprednisolone Sodium Succinate 80 mg 03/31/21 10:57 04/02/21 12:35 Methylprednisolone Sod Succ 125 Mg/2 Ml Vial IV 80 mg Q8H [facility] Administration Patient Own 1 each 03/29/21 11:00 04/02/21 09:06 Medication ( PO 1 each Nintedanib [Ofev] BID [facility]A Administration 150 Mg Capsule) Ondansetron HCl 4 mg 03/28/21 17:33 Ondansetron Hcl 4 Mg/2 Ml Vial IVPUSH Q8H PRN Nausea and Vomiting Pharmacy Consult 1 each 03/28/21 10:55 Consult Rx Perform Med Rec MISCELLANE ONCE PRN Consult order Sodium Chloride 3 ml 03/29/21 00:00 04/02/21 09:07 0.9 % Sodium Chloride Flush 3 Ml Syringe IVFLUSH 3 ml QSHIFT [facility] Administration Valsartan 160 mg 03/29/21 09:00 04/02/21 08:59 Valsartan 160 Mg Tablet PO 160 mg DAILY [facility] Administration Labs CBC & Chem 7: 04/02/21 05:06 04/02/21 05:06 Labs: Laboratory Results - last 24 hr 03/29/21 03/31/21 04/02/21 11:58 10:48 02:30 MCV MCH MCHC RDW Plt Count MPV Absolute Nucleated RBC Nucleated RBC % (auto) Anion Gap Estim Creat Clear Calc Estimated GFR Random Glucose Calcium Nasal Screen MRSA (PCR) NEGATIVE Nasal S. aureus Screen NEGATIVE Nasal MRSA/S.aureus Interp SEE NOTE Proteinase 3 (PR3) Ab <1.0 Myeloperoxidase Ab <1.0 Ur L.pneumophila Ag Not Detected 04/02/21 04/02/21 05:06 05:06 MCV 95.3 MCH 30.4 MCHC 31.9 RDW 13.9 Plt Count 186 D MPV 9.9 Absolute Nucleated RBC 0.000 Nucleated RBC % (auto) 0.0 Anion Gap 13 Estim Creat Clear Calc 125.9 Estimated GFR > 60 Random Glucose 95 Calcium 9.3 Nasal Screen MRSA (PCR) Nasal S. aureus Screen Nasal MRSA/S.aureus Interp Proteinase 3 (PR3) Ab Myeloperoxidase Ab Ur L.pneumophila Ag Microbiology Microbiology Results: Microbiology 03/28/21 11:32 Blood - Venous Blood Culture - Final No growth after 5 days. 03/28/21 11:22 Blood - Venous Blood Culture - Final No growth after 5 days. 04/02/21 08:12 Sputum - Expectorated Gram Stain - Final 04/02/21 08:12 Sputum - Expectorated Sputum Culture - Final Quality Stroke Does the patient have a stroke diagnosis?: No VTE Prior VTE?: No VTE Risk Level:: Medical - moderate - high VTE Device Contraindication: Treatment Not Indicated VTE Drug Contraindication: N/A - Med Ordered
[2021-04-03] VITALS (16 sets, daily range): BP systolic 144–168; BP diastolic 83–102; PULSE 57–96; RESP 18–36; TEMP 36.1–37.2; O2SAT 83–94
[2021-04-03] MEDS: Piperacillin Sodium/Tazobactam 3.375 GM in 0.9 % Sodium Chloride 50 ML IV ×5 (00:37→22:53)
[2021-04-03] MEDS: Doxycycline Hyclate 100 MG in 0.9 % Sodium Chloride 250 ML 166.67 MG IV ×2 (01:21→13:00)
[2021-04-03] MEDS: methylPREDNISolone Sod Succ 125 MG/2 ML VIAL 80 MG IV ×3 (04:13→20:34)
[2021-04-03] MEDS: Albuterol/Iprat 2.5/0.5MG 3 ML AMPUL.NEB INHALE ×3 (07:18→20:02)
[2021-04-03] MEDS: Valsartan 160 MG TABLET PO (08:21)
[2021-04-03] MEDS: allopurinoL 100 MG TABLET PO (08:22)
[2021-04-03] MEDS: 0.9 % Sodium Chloride Flush 3 ML SYRINGE IVFLUSH ×3 (08:22→20:34)
[2021-04-03] MEDS: amLODIPine Besylate 10 MG TABLET PO (08:22)
[2021-04-03] MEDS: Apixaban 5 MG TABLET PO ×2 (08:22→20:33)
[2021-04-03] MEDS: guaiFENesin LA 600 MG TAB.ER.12H 1200 MG PO ×2 (08:22→20:34)
--- NOTE | 2021-04-03 11:27 | P.PNIM_ITS ---
Progress Note: A&P (1) Respiratory failure with hypoxia: Status: Acute Assessment and Plan: This is a 70-year-old man admitted with community-acquired pneumonia.? He has a history of interstitial lung disease.? he had been on Levaquin for 2 weeks and more recently off for 2 weeks. Acute on chronic hypoxic respiratory failure.?Interstitial lung disease on 2L home o2, being treated with OFEV Covid neg, RPP neg, legionalla,strep pneumo, crypto neg Still requiring high-flow oxygen, desaturates with minimal movement -continue empiric IV Zosyn, will add doxy to cover for atypicals. nasal MRSA neg -? concern for opportunistic infection given immunocompromised on Xeljanz -continue IV Solu-Medrol ID and pulmonology following, unable to have bronch at this time due to respira tory status -blood cultures negative -Continue supplemental oxygen, wean as tolerated Thrombocytopenia.? baseline Follow CBC Elevated bilirubin.? baseline Hypertension.? Continue valsartan, Norvasc History of pulmonary embolus.? Continue Eliquis History of rheumatoid arthritis continue steroids DVT prophylaxis with Anjelica Attending Dr. Palacio Subjective Subjective Date of Service: 04/03/21 Review of Systems Follow up acute on chronic respiratory failure Still on high-flow 88%, 10-15 L Feels about the same Physical Exam Vital Signs: Vital Signs: Last Vital Signs Temp 97.8 F 04/03/21 08:00 Pulse 75 04/03/21 08:22 Resp 18 04/03/21 08:00 BP 158/87 H 04/03/21 08:22 Pulse Ox 93 04/03/21 08:00 Body Mass Index 33.0 Appearing in no acute distress lung sounds coarse heart regular rate rhythm, clear S1, S2 positive bowel sounds, abdomen is soft, nontender neuro patient is alert x3, no focal deficits Objective Data Current Medications Generic Name Dose Route Start Last Admin Trade Name Freq PRN Reason Stop Dose Admin Acetaminophen 650 mg 03/28/21 17:33 03/29/21 11:48 Acetaminophen 325 Mg Tablet PO 650 mg Q6H PRN Administration Pain, Mild (Pain Scale 1-3) Albuterol/Ipratropium 3 ml 03/31/21 14:00 04/03/21 07:18 Albuterol/Iprat 2.5/0.5mg 3 Ml Ampul.Neb INHALE 3 ml RQ6H WHILE AWAKE [facility] Administration Allopurinol 100 mg 03/29/21 09:00 04/03/21 08:22 Allopurinol 100 Mg Tablet PO 100 mg DAILY [facility] Administration Amlodipine Besylate 10 mg 03/29/21 09:00 04/03/21 08:22 Amlodipine Besylate 10 Mg Tablet PO 10 mg DAILY [facility] Administration Protocol Apixaban 5 mg 03/28/21 21:00 04/03/21 08:22 Apixaban 5 Mg Tablet PO 5 mg BID [facility] Administration Guaifenesin 1,200 mg 03/31/21 21:00 04/03/21 08:22 Guaifenesin La 600 Mg Tab.Er.12h PO 1,200 mg BID [facility] Administration Piperacillin Sod/Tazobactam 50 mls @ 100 mls/hr 03/28/21 17:45 04/03/21 05:55 Sod 3.375 gm/ Sodium Chloride IV Infused Q6H [facility] Infusion Doxycycline Hyclate 100 mg/ 250 mls @ 166.67 mls/hr 04/01/21 13:00 04/03/21 03:19 Sodium Chloride IV Infused Q12H [facility] Infusion Methylprednisolone Sodium Succinate 80 mg 03/31/21 10:57 04/03/21 04:13 Methylprednisolone Sod Succ 125 Mg/2 Ml Vial IV 80 mg Q8H [facility] Administration Patient Own 1 each 03/29/21 11:00 04/03/21 08:22 Medication ( PO 1 each Nintedanib [Ofev] BID [facility] Administration 150 Mg Capsule) Ondansetron HCl 4 mg 03/28/21 17:33 Ondansetron Hcl 4 Mg/2 Ml Vial IVPUSH Q8H PRN Nausea and Vomiting Pharmacy Consult 1 each 03/28/21 10:55 Consult Rx Perform Med Rec MISCELLANE ONCE PRN Consult order Sodium Chloride 3 ml 03/29/21 00:00 04/03/21 08:22 0.9 % Sodium Chloride Flush 3 Ml Syringe IVFLUSH 3 ml QSHIFT [facility] Administration Valsartan 160 mg 03/29/21 09:00 04/03/21 08:21 Valsartan 160 Mg Tablet PO 160 mg DAILY [facility] Administration Labs CBC & Chem 7: 04/02/21 05:06 04/02/21 05:06 Labs: Laboratory Results - last 24 hr 0904/02/21 04/02/21 10:48 02:30 05:06 Nasal Screen MRSA (PCR) NEGATIVE Nasal S. aureus Screen NEGATIVE Nasal MRSA/S.aureus Interp SEE NOTE Proteinase 3 (PR3) Ab <1.0 Myeloperoxidase Ab <1.0 Cryptococcal Ag SEE NOTE Microbiology Microbiology Results: Microbiology 03/28/21 11:32 Blood - Venous Blood Culture - Final No growth after 5 days. 03/28/21 11:22 Blood - Venous Blood Culture - Final No growth after 5 days. 04/02/21 08:12 Sputum - Expectorated Gram Stain - Final 04/02/21 08:12 Sputum - Expectorated Sputum Culture - Final Quality Stroke Does the patient have a stroke diagnosis?: No VTE Prior VTE?: No VTE Risk Level:: Medical - moderate - high VTE Device Contraindication: Treatment Not Indicated VTE Drug Contraindication: N/A - Med Ordered
[2021-04-04] VITALS (13 sets, daily range): BP systolic 144–171; BP diastolic 81–97; PULSE 62–99; RESP 18–24; TEMP 36–36.8; O2SAT 89–94
[2021-04-04] MEDS: Doxycycline Hyclate 100 MG in 0.9 % Sodium Chloride 250 ML 166.67 MG IV ×2 (00:03→13:56)
[2021-04-04] MEDS: methylPREDNISolone Sod Succ 125 MG/2 ML VIAL 80 MG IV (03:58)
[2021-04-04] MEDS: Piperacillin Sodium/Tazobactam 3.375 GM in 0.9 % Sodium Chloride 50 ML IV (04:35)
[2021-04-04] MEDS: Albuterol/Iprat 2.5/0.5MG 3 ML AMPUL.NEB INHALE ×3 (08:24→19:47)
--- NOTE | 2021-04-04 09:28 | PM.IMPN ---
Progress Note: A&P (1) Respiratory failure with hypoxia: Status: Acute (2) Interstitial lung disease due to connective tissue disease: Status: Acute (3) Pneumonia: Status: Acute Assessment and Plan: This is a 70-year-old man admitted with community-acquired pneumonia.? He has a history of interstitial lung disease.? he had been on Levaquin for 2 weeks and more recently off for 2 weeks. Acute on chronic hypoxic respiratory failure.?Interstitial lung disease on 2L home o2, being treated with OFEV Covid neg, RPP neg, legion[place],strep pneumo, crypto neg, nasal MRSA neg, blood cx neg concern for opportunistic infection given immunocompromised on Xeljanz vs previous covid disease Still requiring high-flow oxygen and also NRB now Stop zosyn and start meropenem, Bactrim, and continue doxycycline start 1gm solumedrol ID and pulmonology following Chest x-ray shows no improvement from previous May ultimately need to be intubated if no improvement seen and at that time will have bronchoscopy Thrombocytopenia.? baseline Follow CBC Elevated bilirubin.? baseline Hypertension.? Continue valsartan, Norvasc History of pulmonary embolus.? Continue Eliquis History of rheumatoid arthritis continue steroids DVT prophylaxis with Anjelica Attending Dr. Palacio Subjective Subjective Date of Service: 04/04/21 Review of Systems Follow up? acute on chronic respiratory failure Still on high-flow 100% with NRB Feels about the same, no worse Physical Exam Vital Signs: Vital Signs: Last Vital Signs Temp 96.8 F 04/04/21 06:52 Pulse 70 04/04/21 08:25 Resp 24 H 04/04/21 08:25 BP 150/84 H 04/04/21 06:52 Pulse Ox 90 L 04/04/21 06:52 Body Mass Index 33.0 Appearing in no acute distress lung sounds coarse heart regular rate rhythm, clear S1, S2 positive bowel sounds, abdomen is soft, nontender neuro patient is alert x3, no focal deficits Objective Data Current Medications Generic Name Dose Route Start Last Admin Trade Name Freq PRN Reason Stop Dose Admin Acetaminophen 650 mg 03/28/21 17:33 03/29/21 11:48 Acetaminophen 325 Mg Tablet PO 650 mg Q6H PRN Administration Pain, Mild (Pain Scale 1-3) Albuterol/Ipratropium 3 ml 03/31/21 14:00 04/04/21 08:24 Albuterol/Iprat 2.5/0.5mg 3 Ml Ampul.Neb INHALE 3 ml RQ6H WHILE AWAKE LATANYA Administration Allopurinol 100 mg 03/29/21 09:00 04/03/21 08:22 Allopurinol 100 Mg Tablet PO 100 mg DAILY LATANYA Administration Amlodipine Besylate 10 mg 03/29/21 09:00 04/03/21 08:22 Amlodipine Besylate 10 Mg Tablet PO 10 mg DAILY LATANYA Administration Protocol Apixaban 5 mg 03/28/21 21:00 04/03/21 20:33 Apixaban 5 Mg Tablet PO 5 mg BID LATANYA Administration Guaifenesin 1,200 mg 03/31/21 21:00 04/03/21 20:34 Guaifenesin La 600 Mg Tab.Er.12h PO 1,200 mg BID LATANYA Administration Piperacillin Sod/Tazobactam 50 mls @ 100 mls/hr 03/28/21 17:45 04/04/21 05:14 Sod 3.375 gm/ Sodium Chloride IV Infused Q6H LATANYA Infusion Doxycycline Hyclate 100 mg/ 250 mls @ 166.67 mls/hr 04/01/21 13:00 04/04/21 01:38 Sodium Chloride IV Infused Q12H LATANYA Infusion Methylprednisolone Sodium Succinate 80 mg 03/31/21 10:57 04/04/21 03:58 Methylprednisolone Sod Succ 125 Mg/2 Ml Vial IV 80 mg Q8H LATANYA Administration Patient Own 1 each 03/29/21 11:00 04/03/21 20:34 Medication ( PO 1 each Nintedanib [Ofev] BID LATANYA Administration 150 Mg Capsule) Ondansetron HCl 4 mg 03/28/21 17:33 Ondansetron Hcl 4 Mg/2 Ml Vial IVPUSH Q8H PRN Nausea and Vomiting Pharmacy Consult 1 each 03/28/21 10:55 Consult Rx Perform Med Rec MISCELLANE ONCE PRN Consult order Sodium Chloride 3 ml 03/29/21 00:00 04/03/21 20:34 0.9 % Sodium Chloride Flush 3 Ml Syringe IVFLUSH 3 ml QSHIFT LATANYA Administration Valsartan 160 mg 03/29/21 09:00 04/03/21 08:21 Valsartan 160 Mg Tablet PO 160 mg DAILY LATANYA Administration Labs CBC & Chem 7: 04/02/21 05:06 04/02/21 05:06 Microbiology Microbiology Results: Microbiology 03/28/21 11:32 Blood - Venous Blood Culture - Final No growth after 5 days. 03/28/21 11:22 Blood - Venous Blood Culture - Final No growth after 5 days. 04/02/21 08:12 Sputum - Expectorated Gram Stain - Final 04/02/21 08:12 Sputum - Expectorated Sputum Culture - Final Quality Stroke Does the patient have a stroke diagnosis?: No VTE Prior VTE?: No VTE Risk Level:: Medical - moderate - high VTE Device Contraindication: Treatment Not Indicated VTE Drug Contraindication: N/A - Med Ordered
[2021-04-04] MEDS: 0.9 % Sodium Chloride Flush 3 ML SYRINGE IVFLUSH ×2 (09:36→15:46)
[2021-04-04] MEDS: guaiFENesin LA 600 MG TAB.ER.12H 1200 MG PO ×2 (09:37→21:31)
[2021-04-04] MEDS: Valsartan 160 MG TABLET PO (09:39)
[2021-04-04] MEDS: amLODIPine Besylate 10 MG TABLET PO (09:39)
[2021-04-04] MEDS: Apixaban 5 MG TABLET PO ×2 (09:40→21:31)
[2021-04-04] MEDS: allopurinoL 100 MG TABLET PO (09:40)
[2021-04-04 10:29] LABS: VBG Base Excess 9.2 mmol/L; VBG HCO3 36 mmol/L (22-26); VBG pCO2 56 mmHg; VBG pH 7.41 (7.32-7.43); VBG pO2 42 mmHg
[2021-04-04 10:32] LABS: Venous Blood Gas Refer to POC result
--- NOTE | 2021-04-04 10:35 | P.PNPL_ITS ---
Subjective Subjective Date of Service: 04/04/21 Principal diagnosis: ILD/ RESP.FAILURE Interval history: The patient was seen on exam. His respiratory status has been worsening now on 100% high-flow and also non-rebreather. He is due desaturated down to the 70s and 80s with minimal exertion. He is more breathless. He did have a chest x-ray today that I personally reviewed demonstrating slightly improvement however. In addition to that he will have a venous gas. I spoke to the patient and also his . We sat down talked about the concerns of his worsening respiratory status. We talked about different options including further optimizing her respiratory therapy by providing broader spectrum of antimicrobial coverage in addition to increasing his cortical steroid therapy to treat his underlying connective tissue disease related interstitial lung d isease. We talked about different etiologies about what may have caused this. Indeed COVID-19 still in the differential. In addition to this immuno compromising conditions due to his mental suppression are also in differential. A flare from his underlying interstitial lung disease is also in differential. I also did speak to the audit control clerk. The feeling is that if he needs ICU level of care probably best to intubate. Therefore been able to do additional testings. The patient is in the a full code. He is agreeable to intubation. At this point will try pulse dose steroids and switching his antibiotic coverage. If the patient worsens or is no better then will consider mechanical ventilation. Objective Data Labs CBC & Chem 7: 04/02/21 05:06 04/02/21 05:06 Labs: Laboratory Results - last 24 hr 04/04/21 10:25 VBG pH 7.41 VBG pCO2 56 VBG pO2 42 VBG HCO3 36 H VBG O2 Saturation 66.0 VBG Base Excess 9.2 Microbiology Microbiology Results: Microbiology 03/28/21 11:32 Blood - Venous Blood Culture - Final No growth after 5 days. 03/28/21 11:22 Blood - Venous Blood Culture - Final No growth after 5 days. 04/02/21 08:12 Sputum - Expectorated Gram Stain - Final 04/02/21 08:12 Sputum - Expectorated Sputum Culture - Final Review of Systems Review of Systems Denies any recent fever chills or decrease in appetite respiratory see HPI cardiovascular denies chest pain gastrointestinal denies any dysphagia abdominal pain nausea vomiting or diarrhea genitourinary denies any dysuria frequency or hematuria musculoskeletal denies any joint pain or swelling neuropsych denies any weakness or seizures all other systems reviewed are negative Physical Exam Vital Signs: Vital Signs: Last Vital Signs Temp 96.8 F 04/04/21 06:52 Pulse 70 04/04/21 09:39 Resp 24 H 04/04/21 08:25 BP 150/84 H 04/04/21 09:39 Pulse Ox 90 L 04/04/21 06:52 Body Mass Index 33.0 Const: General: alert and acute distress mild Neck: Neck: Yes normal visual inspection, Yes full ROM and Yes no lymph adenopathy Chest: Chest palpation & inspection: normal inspection of the chest Resp: Auscultation: crackles and diminished lung sounds Cardio: Rate: regular rate Rhythm: regular rhythm Heart sounds: S1 normal heart sound present and S2 normal heart sound present GI: Palpation (GI): Soft to palpation and nontender Auscultation: normal bowel sounds Skin: General skin exam: rashes and/or lesions noted Procedures Date of Service Date of Service: 04/04/21 Assessment and Plan Assessment and plan (1) Respiratory failure with hypoxia: Status: Acute (2) Acute pneumonitis: Status: Acute (3) Pneumonia: Status: Acute (4) Pulmonary fibrosis: Status: Acute (5) Interstitial lung disease due to connective tissue disease: Status: Acute (6) Rheumatoid arthritis: Status: Acute (7) History of pulmonary embolism: Status: Acute Assessment and Plan: DC Zosyn switched to meropenem Bactrim to treat for Pneumocystis Okay to stop doxycycline while on Bactrim Stop Solu-Medrol 80 mg Start pulse dose steroids 1 g IV daily x3 days Venous gas If the patient worsens he is currently a full code and should go to the ICU Will continue following closely Patient is in a guarded condition Time Spent With Patient Time: Total time spent is greater than 50% in coordination of care (as documented) at patient's floor/unit and/or counseling patient: Time with patient: Greater than 35 minutes Progress Note: Quality Stroke Does the patient have a stroke diagnosis?: No
[2021-04-04] MEDS: methylPREDNISolone Sod Succ 1,000 MG in 0.9 % Sodium Chloride 50 ML 66 MG IV (11:24)
--- NOTE | 2021-04-04 18:39 | PC.NURSE ---
Patient remains on Highflow and 100% NRB to maintain O2 levels. Evident tachypnea associated with rapid desaturation upon activity. Patient was seen by Dr. Haque PCXR obtained. IV ABTx changed to continue Doxy, start IV Meropenem, and add IV high dose Solumedrol. PO Bactrim also given. Patient was able to get OOB to chair with assist, desat to 76 with quick rebound. By this afternoon, patient is able to speak in conversation with mild/mod dyspnea. Cough with deep breathing. VSS otherwise. Family in and updated in person.
[2021-04-05] VITALS (35 sets, daily range): BP systolic 132–169; BP diastolic 79–112; PULSE 67–104; RESP 14–86; TEMP 36.7–37.4; O2SAT 85–95; BMI 33.5
[2021-04-05] MEDS: Doxycycline Hyclate 100 MG in 0.9 % Sodium Chloride 250 ML 166.7 MG IV (00:25)
[2021-04-05] MEDS: 0.9 % Sodium Chloride Flush 3 ML SYRINGE IVFLUSH ×4 (00:26→23:24)
--- NOTE | 2021-04-05 04:45 | MHC.PIE ---
P.RESP DISTRESS I.REPOSITIONED PATIENT FOR COMF.DESATS TO LOW 80'S WITH ANY ACTIVITY.HAD COUGHING SPELL DIFFICULTY REGAINING O2 SATS.HAD INCREASED WOB. NOTIFIED AND ON FLOOR TO ASSESS PATIENT.MED WITH MS 4MG IV FOR RESP DISTRESS.SOME IMPROVEMENT IN SATS TO 89-90% BUT CONTINUES TO DESAT WHEN SPEAKS OR MOVES TO 85-86%.PT PLACED ON BIPAP BY RESP PER MD ORDER.IMPROVEMENT IN SATS TO 91-92%.TRANSFERRED TO ICU ON BIPAP. E ICU TRANSFER
[2021-04-05] MEDS: Morphine Sulfate 4 MG/ML CARTRIDGE IVPUSH (05:05)
--- NOTE | 2021-04-05 05:27 | P.EN_ITS ---
Event Note Date of Service: 04/05/21 Event Note: patient became hypoxic around 5:00 a.m. with O2 dropping to the low 80s to high 70s. Patient anxious, tachypneic. Given 4 mg of IV morphine with some improvement in his respiratory distress. Patient is switched from high- flow and non-rebreather to BiPAP with improvement of his O2 to 91-93%. A call was made to the mechanical commissioning engineer and patient will be transferred to the ICU.
--- NOTE | 2021-04-05 06:09 | PC.NURSE ---
Patient transferred to ICU @ 0545. On bipap 15/100%. RR 35-45. Patient reports improvement in work of breathing. Satting 94-97%. Increased WOB and desat to high 80's with minimal exertion (i.e. using urinal in bed without moving). SR with frequent PVC's. SBP 150's. Gill Tender, RT, and PA at bedside
[2021-04-05 06:10] LABS: VBG Base Excess 5.1 mmol/L; VBG HCO3 29 mmol/L (22-26); VBG pCO2 41 mmHg; VBG pH 7.45 (7.32-7.43); VBG pO2 88 mmHg
[2021-04-05 06:13] LABS: Venous Blood Gas Refer to POC result
[2021-04-05 06:14] LABS: Hematocrit 46.1 % (42-52); Hemoglobin 14.7 g/dl (14.0-18.0); Mean Corpuscular HGB Conc 31.9 g/dl (31.0-36.0); Mean Corpuscular Hemoglobin 30.4 pg (27.0-33.0); Mean Corpuscular Volume 95.2 fL (80-98); Mean Platelet Volume 9.3 fL (9.4-12.4); NRBC Pct Auto 0.1 /100WBC (0.0-0.2); Platelet Count 195 X10*3/uL (160-400); Red Blood Count 4.84 X10*6/uL (4.60-5.80); Red Cell Distribution Width 14.4 % (11.0-16.0); White Blood Count 20.8 X10*3/uL (4.8-10.8)
[2021-04-05 06:19] LABS: INTERNATIONAL NORM RATIO 1.3 (0.9-1.1); Prothrombin Time 14.8 SEC (9.9-13.0)
[2021-04-05 06:22] LABS: Partial Thromboplastin Time 27.5 SEC (24.1-38.0)
[2021-04-05 06:33] LABS: Alanine Aminotransferase 43 U/L (0-40); Albumin Level 3.5 g/dL (3.5-5.0); Alkaline Phosphatase 81 U/L (39-117); Anion Gap 13 (12-20); Aspartate Amino Transferase 25 U/L (5-37); Blood Urea Nitrogen 25 mg/dL (9-16); C Reactive Protein 0.61 mg/dL (< or = 0.50); Calcium 8.8 mg/dL (8.4-10.2); Carbon Dioxide 27 mmol/L (22-29); Chloride 107 mmol/L (96-108); Creatinine Clr Calc Pharmacy 120.1; Estimated Glomerular Filt Rate > 60; Glucose Random 108 mg/dL (60-115); Magnesium 2.6 mg/dL (1.6-2.6); Potassium 4.2 mmol/L (3.3-5.1); Sodium 143 mmol/L (135-145); Total Protein 5.9 g/dL (6.5-8.0)
[2021-04-05 06:43] LABS: Procalcitonin 0.19 ng/mL
[2021-04-05] MEDS: Albuterol/Iprat 2.5/0.5MG 3 ML AMPUL.NEB INHALE ×3 (07:37→19:35)
[2021-04-05] MEDS: amLODIPine Besylate 10 MG TABLET PO (08:53)
[2021-04-05] MEDS: allopurinoL 100 MG TABLET PO (08:54)
[2021-04-05] MEDS: Valsartan 160 MG TABLET PO (08:55)
[2021-04-05] MEDS: guaiFENesin LA 600 MG TAB.ER.12H 1200 MG PO ×2 (08:55→20:47)
[2021-04-05] MEDS: Apixaban 5 MG TABLET PO ×2 (08:55→20:47)
[2021-04-05] MEDS: methylPREDNISolone Sod Succ 1,000 MG in 0.9 % Sodium Chloride 50 ML 66 MG IV (09:48)
--- NOTE | 2021-04-05 09:57 | PM.PNPUL ---
Subjective Subjective Date of Service: 04/05/21 Principal diagnosis: ILD/ RESP.FAILURE Interval history: The patient was seen and examined. Long discussion with the family the patient to place. I met with his the 2 children and 2 brothers. The patient condition worsen over the night and transferred to the ICU currently on BiPAP. Appears to be more comfortable on the BiPAP although complaining of dry mouth. Holding off on bronchoscopy based on the fact that he would need to be intubated and there is a chance that may not be able to be liberated from the ventilator. In the meantime the patient is on pulse dose steroids along with p.o. Bactrim for PCP, voriconazole for aspergillosis and acyclovir for viral etiologies. These are less likely entities. Objective Data Labs CBC & Chem 7: 04/05/21 05:58 04/05/21 05:58 Labs: Laboratory Results - last 24 hr 04/04/21 04/05/21 04/05/21 10:25 05:58 05:58 WBC 20.8 H RBC 4.84 Hgb 14.7 Hct 46.1 MCV 95.2 MCH 30.4 MCHC 31.9 RDW 14.4 Plt Count 195 MPV 9.3 L Immature Gran % (Auto) Neut % (Auto) Lymph % (Auto) [place] % (Auto) Eos % (Auto) Baso % (Auto) Lymph # (Auto) [place] # (Auto) Eos # (Auto) Baso # (Auto) Abs Immat Gran (auto) Absolute Neuts (auto) Absolute Nucleated RBC 0.030 H Nucleated RBC % (auto) 0.1 PT INR APTT VBG pH 7.41 VBG pCO2 56 VBG pO2 42 VBG HCO3 36 H VBG O2 Saturation 66.0 VBG Base Excess 9.2 Sodium Cancelled Potassium Cancelled Chloride Cancelled Carbon Dioxide Cancelled Anion Gap Cancelled BUN Cancelled Creatinine Cancelled Estim Creat Clear Calc Cancelled Estimated GFR Cancelled Random Glucose Cancelled Calcium Cancelled Magnesium Total Bilirubin AST ALT Alkaline Phosphatase C-Reactive Protein Total Protein Albumin Procalcitonin 04/05/21 04/05/21 04/05/21 05:58 05:58 05:58 WBC RBC Hgb Hct MCV MCH MCHC RDW Plt Count MPV Immature Gran % (Auto) Neut % (Auto) Lymph % (Auto) [place] % (Auto) Eos % (Auto) Baso % (Auto) Lymph # (Auto) [place] # (Auto) Eos # (Auto) Baso # (Auto) Abs Immat Gran (auto) Absolute Neuts (auto) Absolute Nucleated RBC Nucleated RBC % (auto) PT 14.8 H INR 1.3 H APTT 27.5 VBG pH VBG pCO2 VBG pO2 VBG HCO3 VBG O2 Saturation VBG Base Excess Sodium 143 Potassium 4.2 Chloride 107 Carbon Dioxide 27 Anion Gap 13 BUN 25 H Creatinine 0.75 Estim Creat Clear Calc 120.1 Estimated GFR > 60 Random Glucose 108 Calcium 8.8 Magnesium 2.6 Total Bilirubin 1.0 AST 25 ALT 43 H Alkaline Phosphatase 81 D C-Reactive Protein 0.61 H Total Protein 5.9 L Albumin 3.5 Procalcitonin 0.19 04/05/21 04/05/21 05:58 06:04 WBC Cancelled RBC Cancelled Hgb Cancelled Hct Cancelled MCV Cancelled MCH Cancelled MCHC Cancelled RDW Cancelled Plt Count Cancelled MPV Cancelled Immature Gran % (Auto) Cancelled Neut % (Auto) Cancelled Lymph % (Auto) Cancelled [place] % (Auto) Cancelled Eos % (Auto) Cancelled Baso % (Auto) Cancelled Lymph # (Auto) Cancelled [place] # (Auto) Cancelled Eos # (Auto) Cancelled Baso # (Auto) Cancelled Abs Immat Gran (auto) Cancelled Absolute Neuts (auto) Cancelled Absolute Nucleated RBC Cancelled Nucleated RBC % (auto) Cancelled PT INR APTT VBG pH 7.45 H VBG pCO2 41 VBG pO2 88 VBG HCO3 29 H VBG O2 Saturation 96.0 VBG Base Excess 5.1 Sodium Potassium Chloride Carbon Dioxide Anion Gap BUN Creatinine Estim Creat Clear Calc Estimated GFR Random Glucose Calcium Magnesium Total Bilirubin AST ALT Alkaline Phosphatase C-Reactive Protein Total Protein Albumin Procalcitonin Microbiology Microbiology Results: Microbiology 03/28/21 11:32 Blood - Venous Blood Culture - Final No growth after 5 days. 03/28/21 11:22 Blood - Venous Blood Culture - Final No growth after 5 days. 04/02/21 08:12 Sputum - Expectorated Gram Stain - Final 04/02/21 08:12 Sputum - Expectorated Sputum Culture - Final Review of Systems Review of Systems Denies any recent fever chills or decrease in appetite respiratory dyspnea cardiovascular denies chest pain gastrointestinal denies any dysphagia abdominal pain nausea vomiting or diarrhea genitourinary denies any dysuria frequency or hematuria musculoskeletal denies any joint pain or swelling neuropsych denies any weakness or seizures all other systems reviewed are negative Physical Exam Vital Signs: Vital Signs: Last Vital Signs Temp 98.9 F 04/05/21 07:57 Pulse 102 H 04/05/21 09:00 Resp 47 H 04/05/21 09:00 BP 159/101 H 04/05/21 09:00 Pulse Ox 85 L 04/05/21 09:00 Body Mass Index 33.5 Const: General: alert and in distress mild Neck: Neck: Yes normal visual inspection, Yes full ROM and Yes no lymphadenopathy Chest: Chest palpation & inspection: normal inspection of the chest Resp: Auscultation: crackles and diminished lung sounds Cardio: Rate: regular rate Rhythm: regular rhythm Heart sounds: S1 normal heart sound present and S2 normal heart sound present GI: Palpation (GI): Soft to palpation and nontender Auscultation: normal bowel sounds Skin: General skin exam: rashes and/or lesions noted Procedures Date of Service Date of Service: 04/05/21 Assessment and Plan Assessment and plan (1) Respiratory failure with hypoxia: Status: Acute (2) Acute pneumonitis: Status: Acute (3) Pulmonary fibrosis: Status: Acute (4) Interstitial lung disease due to connective tissue disease: Status: Acute (5) History of pulmonary embolism: Status: Acute (6) Pneumonia: Status: Acute Assessment and Plan: The patient has acute on chronic hypoxic respiratory failure refractory to conventional therapy. He had been sick prior to coming to the hospital suggesting the possibility of an infectious process with phlegm. Cannot rule out COVID infection that time. The infectious process may have exacerbated a flare up from his underlying interstitial lung disease in the form of ARDS versus AIP versus UIP exacerbation. Continue pulse dose steroids for 3 days. Then consider Rituxan if no better Voriconazole and acyclovir impaired treatments for his immunocompromised state and significant pneumonitis Continue meropenem and Bactrim Continue BIPAP, may need mechanical ventilation if worsens The patient is in a guarded condition and full code Time Spent With Patient Time: Total time spent is greater than 50% in coordination of care (as documented) at patient's floor/unit and/or counseling patient: Time with patient: Greater than 35 minutes Progress Note: Quality Stroke Does the patient have a stroke diagnosis?: No
--- NOTE | 2021-04-05 13:41 | W.PM.CCCN ---
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 and has since remitted to a degree on BiPAP and currently not interested in intubation despite voicing concerns about getting objective data is so we can fine tune his medication treatment so because of immunosuppression he is now on very broad-spectrum of antifungal and antiviral as well as antibacterial therapy and BiPAP support Review of Systems Review of Systems: No complaint of fever or chills not even complaining of productive cough Yes all other systems are reviewed and are negative PMFSH Past Medical History Medical History Acute pneumonitis Chronic rhinitis Cough History of pulmonary embolism Interstitial lung disease due to connective tissue disease IPF (idiopathic pulmonary fibrosis) Pulmonary fibrosis Respiratory failure with hypoxia Rheumatoid arthritis Syncope Family History Family history: reviewed and not pertinent Social History Social History Household Members: Spouse Housing: House Patient Tobacco Use Status: Never used Tobacco Use of substances other than those prescribed or required for medical reasons: No Currently Displaying Signs/Symptoms of Drug Intoxication Withdrawal: No Have you been hit, kicked, punched, or otherwise hurt by someone within the past year? If so, by whom?: No Do you feel safe in your current relationship?: Yes Is there a partner from a previous relationship who is making you feel unsafe now?: No Are you made to feel afraid or neglected: No Advance Directives: No Advance Directives Information Provided: No Do you have thoughts of harming others: None Do you have a plan to hurt others: No Plan How much weight loss: 2-13 pounds Eating poorly because of decreased appetite: No Nutrition Risks: No Nutritional Risk service: No Current occupational status: retired Meds Allergies Allergy/AdvReac Type Severity Reaction Status Date / Time Bee Stings Allergy Mild Anaphylaxis Uncoded 08/27/20 08:57 Active Medications: Current Medications Generic Name Dose Route Start Last Admin Trade Name Freq PRN Reason Stop Dose Admin Acetaminophen 650 mg 03/28/21 17:33 03/29/21 11:48 Acetaminophen 325 Mg Tablet PO 650 mg Q6H PRN Administration Pain, Mild (Pain Scale 1-3) Albuterol/Ipratropium 3 ml 03/31/21 14:00 04/05/21 13:19 Albuterol/Iprat 2.5/0.5mg 3 Ml Ampul.Neb INHALE 3 ml RQ6H WHILE AWAKE LATANYA Administration Allopurinol 100 mg 03/29/21 09:00 04/05/21 08:54 Allopurinol 100 Mg Tablet PO 100 mg DAILY LATANYA Administration Amlodipine Besylate 10 mg 03/29/21 09:00 04/05/21 08:53 Amlodipine Besylate 10 Mg Tablet PO 10 mg DAILY LATANYA Administration Protocol Apixaban 5 mg 03/28/21 21:00 04/05/21 08:55 Apixaban 5 Mg Tablet PO 5 mg BID LATANYA Administration Guaifenesin 1,200 mg 03/31/21 21:00 04/05/21 08:55 Guaifenesin La 600 Mg Tab.Er.12h PO 1,200 mg BID LATANYA Administration Doxycycline Hyclate 100 mg/ 250 mls @ 166.67 mls/hr 04/01/21 13:00 04/05/21 02:03 Sodium Chloride IV Infused Q12H LATANYA Infusion Meropenem 1 gm/ Sodium 100 mls @ 100 mls/hr 04/04/21 11:00 04/05/21 12:18 Chloride IV 100 mls/hr Q8H LATANYA Administration Methylprednisolone Sodium 66 mls @ 66 mls/hr 04/04/21 10:45 04/05/21 10:48 Succinate 1,000 mg/ Sodium IV 04/06/21 10:00 Infused Chloride DAILY LATANYA Infusion Patient Own 1 each 03/29/21 11:00 04/05/21 08:55 Medication ( PO 1 each Nintedanib [Ofev] BID LATANYA Administration 150 Mg Capsule) Ondansetron HCl 4 mg 03/28/21 17:33 Ondansetron Hcl 4 Mg/2 Ml Vial IVPUSH Q8H PRN Nausea and Vomiting Pharmacy Consult 1 each 03/28/21 10:55 Consult Rx Perform Med Rec MISCELLANE ONCE PRN Consult order Sodium Chloride 3 ml 03/29/21 00:00 04/05/21 08:55 0.9 % Sodium Chloride Flush 3 Ml Syringe IVFLUSH 3 ml QSHIFT LATANYA Administration Trimethoprim/Sulfamethoxazole 2 tab 04/04/21 11:00 04/05/21 12:19 Sulfamethox/Trimeth 800/160 1 Tab Tablet PO 2 tab Q8H LATANYA Administration Valsartan 160 mg 03/29/21 09:00 04/05/21 08:55 Valsartan 160 Mg Tablet PO 160 mg DAILY LATANYA Administration Home Medications Medication Instructions Recorded Confirmed Last Taken Type allopurinol 100 mg tablet 100 mg PO DAILY 05/26/20 03/28/21 03/28/21 History amlodipine 10 mg tablet 10 mg PO DAILY 05/26/20 03/28/21 03/28/21 History olmesartan 40 mg tablet 40 mg PO DAILY 05/26/20 03/28/21 Unknown History prednisone 10 mg tablet 10 mg PO DAILY 05/26/20 03/28/21 03/28/21 History tadalafil 20 mg tablet 20 mg PO DAILY PRN 10/05/20 03/28/21 Unknown History epinephrine 0.3 mg/0.3 mL 0.3 mg IM ONCE PRN 01/20/21 03/28/21 Unknown History injection, auto-injector Physical Exam Vital Signs: Vital Signs: Last Vital Signs Temp 98.2 F 04/05/21 12:00 Pulse 96 04/05/21 13:21 Resp 37 H 04/05/21 13:20 BP 155/92 H 04/05/21 13:00 Pulse Ox 90 L 04/05/21 13:00 Body Mass Index 33.5 Awake alert oriented and nonfocal neurologically Cardiovascular exam with good bilateral carotid upstrokes no neck vein distension no gallops Abdomen is benign soft with good bowel sounds and no organomegaly Lungs with coarse bilateral scattered rale so but no adventitious sounds Results Labs CBC & Chem 7: 04/05/21 05:58 04/05/21 05:58 Labs: Short CBC 04/05/21 04/05/21 Range/Units 05:58 05:58 WBC 20.8 H Cancelled (4.8-10.8) X10*3/uL Hgb 14.7 Cancelled (14.0-18.0) g/dl Hct 46.1 Cancelled (42-52) % Plt Count 195 Cancelled (160-400) X10*3/uL BMP 04/05/21 04/05/21 05:58 05:58 Sodium Cancelled 143 Potassium Cancelled 4.2 Chloride Cancelled 107 Carbon Dioxide Cancelled 27 BUN Cancelled 25 H Creatinine Cancelled 0.75 Calcium Cancelled 8.8 Liver Function 04/05/21 Range/Units 05:58 Total Bilirubin 1.0 (0.0-1.0) mg/dL AST 25 (5-37) U/L ALT 43 H (0-40) U/L Alkaline Phosphatase 81 D (39-117) U/L Albumin 3.5 (3.5-5.0) g/dL Microbiology Microbiology Results: Microbiology 03/28/21 11:32 Blood - Venous Blood Culture - Final No growth after 5 days. 03/28/21 11:22 Blood - Venous Blood Culture - Final No growth after 5 days. 04/02/21 08:12 Sputum - Expectorated Gram Stain - Final 04/02/21 08:12 Sputum - Expectorated Sputum Culture - Final Assessment and Plan (1) Respiratory failure with hypoxia: Status: Acute (2) Acute pneumonitis: Status: Acute (3) Pulmonary fibrosis: Status: Acute (4) Interstitial lung disease due to connective tissue disease: Status: Acute (5) Rheumatoid arthritis: Qualifiers: Rheumatoid arthritis location: unspecified site Rheumatoid factor presence: with rheumatoid factor Qualified Code(s): M05.9 - Rheumatoid arthritis with rheumatoid factor, unspecified Status: Acute (6) IPF (idiopathic pulmonary fibrosis): Status: Acute (7) History of pulmonary embolism: Status: Acute (8) ARDS (adult respiratory distress syndrome): Status: Acute At this point we added acyclovir and voriconazole in addition to the meropenem and doxycycline and Bactrim as we continue his BiPAP support
[2021-04-05] MEDS: Doxycycline Hyclate 100 MG in 0.9 % Sodium Chloride 250 ML 166.67 MG IV ×2 (13:56→23:38)
--- NOTE | 2021-04-05 16:24 | MHC.CM.PN ---
Pt remains in ICU on high flow O2: ? needing intubation - MD to address with family: Original d/c plan was for a return to home with spouse and [employer] O2. This may need to be amended to include VNA or STR depending on O2 demands. CM to follow
[2021-04-05] MEDS: Melatonin 3 MG TABLET 6 MG PO (20:46)
[2021-04-05] MEDS: fentaNYL citrate/PF 100 MCG/2 ML VIAL 25 MCG IVPUSH ×2 (22:20→23:24)
--- NOTE | 2021-04-05 22:28 | PC.NURSE ---
Afebrile, VSS, RR ranging 23-50s. A &O x4, pt on bipap most of morning, switched to HF and NRB, bipap at bedtime. Uses urinal, SR with occasionaly PVCs on tele. Offered to repo pt q2hr, pt requested to stay supine because it was more comfortable. Dr Dorsey and Dr Mantilla updated pt and family at bedside at about 2220, while switching pt to bipap, pt rr into 50s, unable to slow breathing down, 25mcg ivp of fentanyl given with food effect..
[2021-04-06] VITALS (36 sets, daily range): BP systolic 115–173; BP diastolic 62–102; PULSE 60–114; RESP 14–221; TEMP 36.4–36.9; O2SAT 71–97; BMI 32.5
[2021-04-06] MEDS: fentaNYL citrate/PF 100 MCG/2 ML VIAL 25 MCG IVPUSH ×7 (03:07→19:29)
[2021-04-06 05:28] LABS: MANUAL DIFF FLAG NO
[2021-04-06 05:33] LABS: VBG Base Excess 1.3 mmol/L; VBG HCO3 25 mmol/L (22-26); VBG pCO2 39 mmHg; VBG pH 7.41 (7.32-7.43); VBG pO2 54 mmHg
[2021-04-06 05:33] LABS: Venous Blood Gas Refer to POC result
[2021-04-06 05:35] LABS: Basophils Percent Auto 0.2 % (0-2); Hematocrit 45.2 % (42-52); Hemoglobin 14.3 g/dl (14.0-18.0); Imm Gran Pct Auto 4.4 % (0.0-0.4); Lymphocytes Absolute Auto 0.5 X10*3/uL (1.2-4.9); Lymphocytes Percent Auto 2.9 % (20-40); Mean Corpuscular HGB Conc 31.6 g/dl (31.0-36.0); Mean Corpuscular Hemoglobin 30.6 pg (27.0-33.0); Mean Corpuscular Volume 96.6 fL (80-98); Mean Platelet Volume 9.9 fL (9.4-12.4); Monocytes Absolute Auto 0.5 X10*3/uL (0.1-1.2); NRBC Pct Auto 0.1 /100WBC (0.0-0.2); Neutrophils Absolute Auto 16.2 X10*3/uL (2.0-8.3); Neutrophils Percent Auto 89.5 % (45-73); Platelet Count 181 X10*3/uL (160-400); Red Blood Count 4.68 X10*6/uL (4.60-5.80); Red Cell Distribution Width 14.7 % (11.0-16.0); White Blood Count 18.1 X10*3/uL (4.8-10.8)
[2021-04-06 05:47] LABS: INTERNATIONAL NORM RATIO 1.3 (0.9-1.1); Prothrombin Time 14.3 SEC (9.9-13.0)
[2021-04-06 05:49] LABS: Partial Thromboplastin Time 27.5 SEC (24.1-38.0)
[2021-04-06] MEDS: Albuterol/Iprat 2.5/0.5MG 3 ML AMPUL.NEB INHALE ×3 (07:31→19:28)
[2021-04-06] MEDS: 0.9 % Sodium Chloride Flush 3 ML SYRINGE IVFLUSH ×2 (07:42→16:06)
[2021-04-06] MEDS: guaiFENesin LA 600 MG TAB.ER.12H 1200 MG PO ×2 (07:43→21:46)
[2021-04-06] MEDS: Apixaban 5 MG TABLET PO ×2 (07:43→21:46)
[2021-04-06] MEDS: Valsartan 160 MG TABLET PO (07:43)
[2021-04-06] MEDS: amLODIPine Besylate 10 MG TABLET PO (07:43)
[2021-04-06] MEDS: allopurinoL 100 MG TABLET PO (07:43)
[2021-04-06 08:18] LABS: Alanine Aminotransferase 36 U/L (0-40); Albumin Level 3.4 g/dL (3.5-5.0); Alkaline Phosphatase 78 U/L (39-117); Anion Gap 12 (12-20); Aspartate Amino Transferase 22 U/L (5-37); Blood Urea Nitrogen 28 mg/dL (9-16); Calcium 8.9 mg/dL (8.4-10.2); Carbon Dioxide 28 mmol/L (22-29); Chloride 107 mmol/L (96-108); Creatinine Clr Calc Pharmacy 112.5; Estimated Glomerular Filt Rate > 60; Glucose Random 112 mg/dL (60-115); Magnesium 2.8 mg/dL (1.6-2.6); Phosphorus 3.3 mg/dL (2.7-4.5); Potassium 4.6 mmol/L (3.3-5.1); Sodium 142 mmol/L (135-145); Total Protein 5.7 g/dL (6.5-8.0)
[2021-04-06] MEDS: methylPREDNISolone Sod Succ 1,000 MG in 0.9 % Sodium Chloride 50 ML 66 MG IV (09:06)
--- NOTE | 2021-04-06 09:59 | MHC.CM.PN ---
Per discussion at rounds: MD concerned with pt's lung status and is recommending transfer to a tertiary center for more diagnostic capability and treatment options. Will discuss this with consulting MD's and family today - no plans for transfer or d/c at this time. CM to follow
--- NOTE | 2021-04-06 10:06 | MHC.CLN ---
F/U POOR PO REPORTED TODAY AT ROUNDS. PRIOR DOCUMENTATION SHOWS APPROXIMATELY 75% ON 04/03 AND 100% ON 04/05. CONTINUE TO FOLLOW INTAKE.
[2021-04-06] MEDS: Furosemide 20 MG/2 ML VIAL IVPUSH (10:15)
--- NOTE | 2021-04-06 12:41 | P.PNCC_ITS ---
Subjective Subjective Date of Service: 04/06/21 Interval History: 70-year-old male with known interstitial lung disease have possibly related to underlying rheumatoid arthritis presents with a rapidly progressive S subacute hypoxic respiratory failure and has evolve now to almost complete BiPAP dependence with 100% FiO2 And has been graduated to receiving 3 consecutive days of pulse high-dose steroid therapy thus far no clinical change with very significant bilateral ARDS now by CT scan and bedside echo today reveals normal LV and RV function with no primary valve or pericardial disease He is not febrile does not appear toxic moderately elevated sed rate at 67 but significant rheumatoid factor titer at 1-380 Critical Care Time (minutes): 45 Physical Exam Vital Signs: Vital Signs: Last Vital Signs Temp 97.6 F 04/06/21 12:00 Pulse 99 04/06/21 12:00 Resp 36 H 04/06/21 12:00 BP 128/83 04/06/21 12:00 Pulse Ox 92 04/06/21 12:00 Body Mass Index 32.5 Awake alert and nonfocal neurologically anxious over his work of breathing Cardiovascular class 1 as echo implied Coarse bilateral rales but no adventitious sounds and when off BiPAP with he has marked use of accessory muscles Abdomen is benign with good bowel sounds soft no organomegaly Objective Data Labs CBC & Chem 7: 04/06/21 05:20 04/06/21 05:20 Labs: Laboratory Results - last 24 hr 04/06/21 04/06/21 04/06/21 05:20 05:20 05:20 WBC 18.1 H RBC 4.68 Hgb 14.3 Hct 45.2 MCV 96.6 MCH 30.6 MCHC 31.6 RDW 14.7 Plt Count 181 MPV 9.9 Immature Gran % (Auto) 4.4 H Neut % (Auto) 89.5 H Lymph % (Auto) 2.9 L [place] % (Auto) 3.0 Eos % (Auto) 0.0 Baso % (Auto) 0.2 Lymph # (Auto) 0.5 L [place] # (Auto) 0.5 Eos # (Auto) 0.0 Baso # (Auto) 0.0 Abs Immat Gran (auto) 0.80 H Absolute Neuts (auto) 16.2 H Absolute Nucleated RBC 0.020 H Nucleated RBC % (auto) 0.1 PT 14.3 H INR 1.3 H APTT 27.5 VBG pH VBG pCO2 VBG pO2 VBG HCO3 VBG O2 Saturation VBG Base Excess Sodium 142 Potassium 4.6 Chloride 107 Carbon Dioxide 28 Anion Gap 12 BUN 28 H Creatinine 0.79 Estim Creat Clear Calc 112.5 Estimated GFR > 60 Random Glucose 112 Calcium 8.9 Phosphorus 3.3 Magnesium 2.8 H Total Bilirubin 1.0 AST 22 ALT 36 Alkaline Phosphatase 78 Total Protein 5.7 L Albumin 3.4 L 04/06/21 05:28 WBC RBC Hgb Hct MCV MCH MCHC RDW Plt Count MPV Immature Gran % (Auto) Neut % (Auto) Lymph % (Auto) [place] % (Auto) Eos % (Auto) Baso % (Auto) Lymph # (Auto) [place] # (Auto) Eos # (Auto) Baso # (Auto) Abs Immat Gran (auto) Absolute Neuts (auto) Absolute Nucleated RBC Nucleated RBC % (auto) PT INR APTT VBG pH 7.41 VBG pCO2 39 VBG pO2 54 VBG HCO3 25 VBG O2 Saturation 79.0 VBG Base Excess 1.3 Sodium Potassium Chloride Carbon Dioxide Anion Gap BUN Creatinine Estim Creat Clear Calc Estimated GFR Random Glucose Calcium Phosphorus Magnesium Total Bilirubin AST ALT Alkaline Phosphatase Total Protein Albumin Microbiology Microbiology Results: Microbiology 03/28/21 11:32 Blood - Venous Blood Culture - Final No growth after 5 days. 03/28/21 11:22 Blood - Venous Blood Culture - Final No growth after 5 days. 04/02/21 08:12 Sputum - Expectorated Gram Stain - Final 04/02/21 08:12 Sputum - Expectorated Sputum Culture - Final Quality Stroke Does the patient have a stroke diagnosis?: No VTE Prior VTE?: No VTE Risk Level:: Medical - moderate - high VTE Device Contraindication: Treatment Not Indicated VTE Drug Contraindication: N/A - Med Ordered Progress Note: A&P Assessment and plan (1) ARDS (adult respiratory distress syndrome): Status: Acute (2) Respiratory failure with hypoxia: Status: Acute (3) Acute pneumonitis: Status: Acute (4) Pneumonia: Status: Acute (5) Syncope: Status: Acute (6) Pulmonary fibrosis: Status: Acute (7) Interstitial lung disease due to connective tissue disease: Status: Acute (8) Cough: Status: Acute (9) Rheumatoid arthritis: Status: Acute (10) IPF (idiopathic pulmonary fibrosis): Status: Acute (11) History of pulmonary embolism: Status: Acute Assessment and Plan: Considering the use of rituximab Patient still resistant to intubation and we did discuss the approach of intubation with aggressive diagnosis Ng including the possibility of a thoracoscopic biopsy Will remain on triple antibiotics including Bactrim as well as antiviral in anti fungal therapy
--- NOTE | 2021-04-06 13:07 | P.PNPL_ITS ---
Subjective Subjective Date of Service: 04/06/21 Principal diagnosis: ILD/ RESP.FAILURE Interval history: The patient was seen on exam. He continues to have labored b reathing. He is currently back on BiPAP. He finds the high-flow with the non- rebreather mask more comfortable but he quickly desaturates to the 70s and has been down to the 60s. On the BiPAP he seems to be maintaining a pulse ox of low 90s. He was also given additional diuretics. Chest x-ray today demonstrated interval worsening of the bilateral fluffy opacities. Today's history dose of the pulse dose steroids. He is also on a broad-spectrum antimicrobial regimen still without any significant improvement. Objective Data Labs CBC & Chem 7: 04/06/21 05:20 04/06/21 05:20 Labs: Laboratory Results - last 24 hr 04/06/21 04/06/21 04/06/21 05:20 05:20 05:20 WBC 18.1 H RBC 4.68 Hgb 14.3 Hct 45.2 MCV 96.6 MCH 30.6 MCHC 31.6 RDW 14.7 Plt Count 181 MPV 9.9 Immature Gran % (Auto) 4.4 H Neut % (Auto) 89.5 H Lymph % (Auto) 2.9 L [place] % (Auto) 3.0 Eos % (Auto) 0.0 Baso % (Auto) 0.2 Lymph # (Auto) 0.5 L [place] # (Auto) 0.5 Eos # (Auto) 0.0 Baso # (Auto) 0.0 Abs Immat Gran (auto) 0.80 H Absolute Neuts (auto) 16.2 H Absolute Nucleated RBC 0.020 H Nucleated RBC % (auto) 0.1 PT 14.3 H INR 1.3 H APTT 27.5 VBG pH VBG pCO2 VBG pO2 VBG HCO3 VBG O2 Saturation VBG Base Excess Sodium 142 Potassium 4.6 Chloride 107 Carbon Dioxide 28 Anion Gap 12 BUN 28 H Creatinine 0.79 Estim Creat Clear Calc 112.5 Estimated GFR > 60 Random Glucose 112 Calcium 8.9 Phosphorus 3.3 Magnesium 2.8 H Total Bilirubin 1.0 AST 22 ALT 36 Alkaline Phosphatase 78 Total Protein 5.7 L Albumin 3.4 L 04/06/21 05:28 WBC RBC Hgb Hct MCV MCH MCHC RDW Plt Count MPV Immature Gran % (Auto) Neut % (Auto) Lymph % (Auto) [place] % (Auto) Eos % (Auto) Baso % (Auto) Lymph # (Auto) [place] # (Auto) Eos # (Auto) Baso # (Auto) Abs Immat Gran (auto) Absolute Neuts (auto) Absolute Nucleated RBC Nucleated RBC % (auto) PT INR APTT VBG pH 7.41 VBG pCO2 39 VBG pO2 54 VBG HCO3 25 VBG O2 Saturation 79.0 VBG Base Excess 1.3 Sodium Potassium Chloride Carbon Dioxide Anion Gap BUN Creatinine Estim Creat Clear Calc Estimated GFR Random Glucose Calcium Phosphorus Magnesium Total Bilirubin AST ALT Alkaline Phosphatase Total Protein Albumin Microbiology Microbiology Results: Microbiology 03/28/21 11:32 Blood - Venous Blood Culture - Final No growth after 5 days. 03/28/21 11:22 Blood - Venous Blood Culture - Final No growth after 5 days. 04/02/21 08:12 Sputum - Expectorated Gram Stain - Final 04/02/21 08:12 Sputum - Expectorated Sputum Culture - Final Review of Systems Review of Systems Denies any recent fever chills or decrease in appetite respiratory dyspnea cardiovascular denies chest pain gastrointestinal denies any dysphagia abdominal pain nausea vomiting or diarrhe a genitourinary denies any dysuria frequency or hematuria musculoskeletal denies any joint pain or swelling neuropsych denies any weakness or seizures all other systems reviewed are negative Physical Exam Vital Signs: Vital Signs: Last Vital Signs Temp 97.6 F 04/06/21 12:00 Pulse 99 04/06/21 12:00 Resp 36 H 04/06/21 12:00 BP 128/83 04/06/21 12:00 Pulse Ox 92 04/06/21 12:00 Body Mass Index 32.5 Const: General: alert Eyes: Pupils: Equal, round and reactive pupils present Neck: Neck: Yes normal visual inspection, Yes full ROM and Yes no lymphadenopathy Chest: Chest palpation & inspection: normal inspection of the chest Resp: Auscultation: crackles, diminished lung sounds and bronchial breath sounds Cardio: Rate: regular rate Rhythm: regular rhythm Heart sounds: S1 normal heart sound present and S2 normal heart sound present GI: Palpation (GI): Soft to palpation and nontender Auscultation: normal bowel sounds Skin: General skin exam: rashes and/or lesions noted Neuro: Cranial nerves: Yes Equal, round and reactive pupils present Procedures Date of Service Date of Service: 04/06/21 Assessment and Plan Assessment and plan (1) Respiratory failure with hypoxia: Status: Acute (2) Acute pneumonitis: Status: Acute (3) Pneumonia: Status: Acute (4) Pulmonary fibrosis: Status: Acute (5) Interstitial lung disease due to connective tissue disease: Status: Acute (6) History of pulmonary embolism: Status: Acute (7) Rheumatoid arthritis: Status: Acute Assessment and Plan: Patient continues to have progressive interstitial disease not responding to high-dose steroids. On antimicrobial therapy treating the possibility immuno compromising conditions in view of his immunosuppressant therapy prior to his admission. The only significant findings is a significantly elevated rheumatoid factor suggesting a flare up from his interstitial lung disease from the connective tissue disease. Recommendations: Continue BiPAP therapy as tolerated. 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
[2021-04-06] MEDS: Doxycycline Hyclate 100 MG in 0.9 % Sodium Chloride 250 ML 166.67 MG IV (13:32)
--- NOTE | 2021-04-06 14:02 | P.PNID_ITS ---
Subjective Subjective Date of Service: 04/06/21 Critical Care Time (minutes): 15 Comment: He remains on high flow nonrebreather,60 L/minute He has CXR no changes and sputum not remarkable Objective Data Labs CBC & Chem 7: 04/11/21 05:20 04/11/21 15:37 Labs: Laboratory Results - last 24 hr 04/06/21 04/06/21 04/06/21 05:20 05:20 05:20 WBC 18.1 H RBC 4.68 Hgb 14.3 Hct 45.2 MCV 96.6 MCH 30.6 MCHC 31.6 RDW 14.7 Plt Count 181 MPV 9.9 Immature Gran % (Auto) 4.4 H Neut % (Auto) 89.5 H Lymph % (Auto) 2.9 L [place] % (Auto) 3.0 Eos % (Auto) 0.0 Baso % (Auto) 0.2 Lymph # (Auto) 0.5 L [place] # (Auto) 0.5 Eos # (Auto) 0.0 Baso # (Auto) 0.0 Abs Immat Gran (auto) 0.80 H Absolute Neuts (auto) 16.2 H Absolute Nucleated RBC 0.020 H Nucleated RBC % (auto) 0.1 PT 14.3 H INR 1.3 H APTT 27.5 VBG pH VBG pCO2 VBG pO2 VBG HCO3 VBG O2 Saturation VBG Base Excess Sodium 142 Potassium 4.6 Chloride 107 Carbon Dioxide 28 Anion Gap 12 BUN 28 H Creatinine 0.79 Estim Creat Clear Calc 112.5 Estimated GFR > 60 Random Glucose 112 Calcium 8.9 Phosphorus 3.3 Magnesium 2.8 H Total Bilirubin 1.0 AST 22 ALT 36 Alkaline Phosphatase 78 Total Protein 5.7 L Albumin 3.4 L 04/06/21 05:28 WBC RBC Hgb Hct MCV MCH MCHC RDW Plt Count MPV Immature Gran % (Auto) Neut % (Auto) Lymph % (Auto) [place] % (Auto) Eos % (Auto) Baso % (Auto) Lymph # (Auto) [place] # (Auto) Eos # (Auto) Baso # (Auto) Abs Immat Gran (auto) Absolute Neuts (auto) Absolute Nucleated RBC Nucleated RBC % (auto) PT INR APTT VBG pH 7.41 VBG pCO2 39 VBG pO2 54 VBG HCO3 25 VBG O2 Saturation 79.0 VBG Base Excess 1.3 Sodium Potassium Chloride Carbon Dioxide Anion Gap BUN Creatinine Estim Creat Clear Calc Estimated GFR Random Glucose Calcium Phosphorus Magnesium Total Bilirubin AST ALT Alkaline Phosphatase Total Protein Albumin Microbiology Microbiology Results: Microbiology 03/28/21 11:32 Blood - Venous Blood Culture - Final No growth after 5 days. 03/28/21 11:22 Blood - Venous Blood Culture - Final No growth after 5 days. 04/02/21 08:12 Sputum - Expectorated Gram Stain - Final 04/02/21 08:12 Sputum - Expectorated Sputum Culture - Final Physical Exam Vital Signs: Vital Signs: Last Vital Signs Temp 97.7 F 04/06/21 13:00 Pulse 60 04/06/21 13:00 Resp 14 04/06/21 13:00 BP 145/76 H 04/06/21 13:00 Pulse Ox 96 04/06/21 13:00 Body Mass Index 32.5 Const: General: cooperative and alert Limitations: no limitations HENMT: Head: Yes normal to inspection Mouth: Normal oral and palatal mucosa present Eyes: General: appearance normal, both eyes and all related structures Resp: Effort & Inspection: able to speak in complete sentences and tachypneic Auscultation: bronchovesicular breath sounds and rub present Cardio: Rate: regular rate Rhythm: regular rhythm GI: Palpation (GI): Soft to palpation and nontender Skin: General skin exam: no rashes or lesions noted Assessment and Plan Assessment and plan (1) ARDS (adult respiratory distress syndrome): Status: Acute Assessment and Plan: Would continue antibiotic plan Further direction per Pulmonary and await cultures Possible 10-14 day antibiotic treatment (2) Respiratory failure with hypoxia: Status: Acute Time Spent With Patient Time: Total time spent is greater than 50% in coordination of care (as documented) at patient's floor/unit and/or counseling patient: Time with patient: 15 - 24 minutes
[2021-04-06] MEDS: fentaNYL citrate/PF 100 MCG/2 ML VIAL 50 MCG IVPUSH (22:02)
[2021-04-07] VITALS (42 sets, daily range): BP systolic 107–157; BP diastolic 58–87; PULSE 66–112; RESP 14–40; TEMP 36.7–37.3; O2SAT 80–98; BMI 32.0
[2021-04-07] MEDS: Doxycycline Hyclate 100 MG in 0.9 % Sodium Chloride 250 ML 166.67 MG IV ×2 (03:48→14:41)
[2021-04-07] MEDS: fentaNYL citrate/PF 100 MCG/2 ML VIAL 50 MCG IVPUSH ×10 (03:52→23:51)
[2021-04-07] MEDS: Albuterol/Iprat 2.5/0.5MG 3 ML AMPUL.NEB INHALE ×2 (04:04→07:29)
[2021-04-07 04:26] LABS: HBS Num1 > 1000.00 mIU/mL (0-7.99); HBc Num1 0.14 S/CO (0.00-0.79); HBsAGNum1 0.24 S/CO (0.00-0.99); Hepatitis B Core Antibody Nonreactive (Nonreactive); Hepatitis B Surface Antigen Negative (Negative); ~HepC Num1 0.12 S/CO (0.00-0.79); ~Hepatitis B Surface Antibody REACTIVE (Nonreactive); ~Hepatitis C Antibody Nonreactive (Nonreactive)
[2021-04-07 05:22] LABS: Venous Blood Gas Refer to POC result
[2021-04-07 05:22] LABS: VBG Base Excess 2.5 mmol/L; VBG HCO3 26 mmol/L (22-26); VBG pCO2 38 mmHg; VBG pH 7.44 (7.32-7.43); VBG pO2 61 mmHg
[2021-04-07 05:29] LABS: Basophils Percent Auto 0.2 % (0-2); Hematocrit 41.7 % (42-52); Hemoglobin 13.1 g/dl (14.0-18.0); Imm Gran Pct Auto 3.5 % (0.0-0.4); Lymphocytes Absolute Auto 0.4 X10*3/uL (1.2-4.9); Lymphocytes Percent Auto 1.9 % (20-40); MANUAL DIFF FLAG SCAN; Mean Corpuscular HGB Conc 31.4 g/dl (31.0-36.0); Mean Corpuscular Hemoglobin 30.4 pg (27.0-33.0); Mean Corpuscular Volume 96.8 fL (80-98); Mean Platelet Volume 9.8 fL (9.4-12.4); Monocytes Absolute Auto 0.6 X10*3/uL (0.1-1.2); Neutrophils Absolute Auto 18.1 X10*3/uL (2.0-8.3); Neutrophils Percent Auto 91.4 % (45-73); Platelet Count 190 X10*3/uL (160-400); Red Blood Count 4.31 X10*6/uL (4.60-5.80); Red Cell Distribution Width 14.8 % (11.0-16.0); SCAN SMEAR FLAG 1; White Blood Count 19.8 X10*3/uL (4.8-10.8)
[2021-04-07 05:32] LABS: SLIDE REVIEW VERIFIED
[2021-04-07 05:37] LABS: INTERNATIONAL NORM RATIO 1.4 (0.9-1.1); Prothrombin Time 16.1 SEC (9.9-13.0)
[2021-04-07 05:40] LABS: Partial Thromboplastin Time 26.8 SEC (24.1-38.0)
[2021-04-07 05:45] LABS: Alanine Aminotransferase 26 U/L (0-40); Albumin Level 3.3 g/dL (3.5-5.0); Alkaline Phosphatase 77 U/L (39-117); Anion Gap 15 (12-20); Aspartate Amino Transferase 28 U/L (5-37); Bilirubin Total 0.7 mg/dL (0.0-1.0); Blood Urea Nitrogen 41 mg/dL (9-16); Calcium 8.5 mg/dL (8.4-10.2); Carbon Dioxide 23 mmol/L (22-29); Chloride 109 mmol/L (96-108); Creatinine Clr Calc Pharmacy 94.6; Estimated Glomerular Filt Rate > 60; Glucose Random 118 mg/dL (60-115); Magnesium 2.9 mg/dL (1.6-2.6); Sodium 142 mmol/L (135-145); Total Protein 5.4 g/dL (6.5-8.0)
--- NOTE | 2021-04-07 09:41 | PM.PNPUL ---
Subjective Subjective Date of Service: 04/07/21 Principal diagnosis: ILD/ RESP.FAILURE Interval history: The patient was seen and examined this morning. He is about the same from a respiratory status. He continues to struggle with the transition from CPAP to high-flow. He does desaturate takes him some time to stabilize. He did get diuretics yesterday seem to have a good response with diuresis. He also completed his 3rd dose of the pulse dose Solu-Medrol 1 g daily. He is still on the impaired treatment for the fungal viral and bacterial pneumonia although these are less likely. 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 This may have been brought upon initial infectious process several weeks back. Patient has not responded to conventional therapy and also aggressive medical therapy. Based on his refractory disease will go ahead and treated with Rituxan 1 g now. The treatment would require him to have a repeat does at some point and a couple weeks. In addition to the requesting call back from the authorization representative as on in [place] back in October 2019. I did not get a call back. Objective Data Labs CBC & Chem 7: 04/07/21 05:13 04/07/21 05:13 Labs: Laboratory Results - last 24 hr 04/06/21 04/07/21 04/07/21 05:20 05:13 05:13 WBC 19.8 H RBC 4.31 L Hgb 13.1 L Hct 41.7 L MCV 96.8 MCH 30.4 MCHC 31.4 RDW 14.8 Plt Count 190 MPV 9.8 Immature Gran % (Auto) 3.5 H Neut % (Auto) 91.4 H Lymph % (Auto) 1.9 L [place] % (Auto) 3.0 Eos % (Auto) 0.0 Baso % (Auto) 0.2 Lymph # (Auto) 0.4 L [place] # (Auto) 0.6 Eos # (Auto) 0.0 Baso # (Auto) 0.0 Abs Immat Gran (auto) 0.70 H Absolute Neuts (auto) 18.1 H Absolute Nucleated RBC 0.000 Nucleated RBC % (auto) 0.0 Smear Tech's Comments VERIFIED PT 16.1 H INR 1.4 H APTT 26.8 VBG pH VBG pCO2 VBG pO2 VBG HCO3 VBG O2 Saturation VBG Base Excess Sodium Potassium Chloride Carbon Dioxide Anion Gap BUN Creatinine Estim Creat Clear Calc Estimated GFR Random Glucose Calcium Phosphorus Magnesium Total Bilirubin AST ALT Alkaline Phosphatase Total Protein Albumin Hep Bs Antigen Negative Hep Bs Antibody REACTIVE Hep B Core Total Ab Nonreactive Hepatitis C Ab (EIA) Nonreactive 04/07/21 04/07/21 05:13 05:16 WBC RBC Hgb Hct MCV MCH MCHC RDW Plt Count MPV Immature Gran % (Auto) Neut % (Auto) Lymph % (Auto) [place] % (Auto) Eos % (Auto) Baso % (Auto) Lymph # (Auto) [place] # (Auto) Eos # (Auto) Baso # (Auto) Abs Immat Gran (auto) Absolute Neuts (auto) Absolute Nucleated RBC Nucleated RBC % (auto) Smear Tech's Comments PT INR APTT VBG pH 7.44 H VBG pCO2 38 VBG pO2 61 VBG HCO3 26 VBG O2 Saturation 88.0 VBG Base Excess 2.5 Sodium 142 Potassium 5.0 Chloride 109 H Carbon Dioxide 23 Anion Gap 15 BUN 41 H Creatinine 0.94 Estim Creat Clear Calc 94.6 Estimated GFR > 60 Random Glucose 118 H Calcium 8.5 Phosphorus 4.0 Magnesium 2.9 H Total Bilirubin 0.7 AST 28 ALT 26 Alkaline Phosphatase 77 Total Protein 5.4 L Albumin 3.3 L Hep Bs Antigen Hep Bs Antibody Hep B Core Total Ab Hepatitis C Ab (EIA) Microbiology Microbiology Results: Microbiology 03/28/21 11:32 Blood - Venous Blood Culture - Final No growth after 5 days. 03/28/21 11:22 Blood - Venous Blood Culture - Final No growth after 5 days. 04/02/21 08:12 Sputum - Expectorated Gram Stain - Final 04/02/21 08:12 Sputum - Expectorated Sputum Culture - Final Review of Systems Review of Systems Denies any recent fever chills or decrease in appetite respiratory dyspnea cardiovascular denies chest pain gastrointestinal denies any dysphagia abdominal pain nausea vomiting or diarrhea genitourinary denies any dysuria frequency or hematuria musculoskeletal denies any joint pain or swelling neuropsych denies any weakness or seizures all other systems reviewed are negative Physical Exam Vital Signs: Vital Signs: Last Vital Signs Temp 98.1 F 04/07/21 09:00 Pulse 94 04/07/21 09:00 Resp 24 H 04/07/21 09:00 BP 119/69 04/07/21 09:00 Pulse Ox 90 L 04/07/21 09:00 Body Mass Index 32.0 Const: General: alert Neck: Neck: Yes normal visual inspection, Yes full ROM and Yes no lymphadenopathy Chest: Chest palpation & inspection: normal inspection of the chest Resp: Auscultation: crackles, rales, wheezes, diminished lung sounds and bronchial breath sounds Cardio: Rate: regular rate Rhythm: regular rhythm Heart sounds: S1 normal heart sound present and S2 normal heart sound present GI: Palpation (GI): Soft to palpation and nontender Auscultation: normal bowel sounds Skin: General skin exam: rashes and/or lesions noted Procedures Date of Service Date of Service: 04/07/21 Assessment and Plan Assessment and plan (1) Respiratory failure with hypoxia: Status: Acute (2) Acute pneumonitis: Status: Acute (3) Pneumonia: Status: Acute (4) Pulmonary fibrosis: Status: Acute (5) Interstitial lung disease due to connective tissue disease: Status: Acute (6) Rheumatoid arthritis: Status: Acute Assessment and Plan: Rituximab today 1 g per pharmacy protocol treating refractory UIP flare from his rheumatoid arthritis Decrease Solu-Medrol to 60 mg daily Continue Bactrim, voriconazole and acyclovir deescalate antibiotics after day 10 Continue BiPAP/HF. Although, I am concerned that his respiratory status and his work of breathing is still difficult. He is being monitored closely in the ICU for any decompensation he may need to be intubated. GUarded condition Time Spent With Patient Time: Total time spent is greater than 50% in coordination of care (as documented) at patient's floor/unit and/or counseling patient: Time with patient: Greater than 35 minutes Progress Note: Quality Stroke Does the patient have a stroke diagnosis?: No
[2021-04-07] MEDS: guaiFENesin LA 600 MG TAB.ER.12H 1200 MG PO ×2 (10:12→19:03)
[2021-04-07] MEDS: Valsartan 160 MG TABLET PO (10:12)
[2021-04-07] MEDS: amLODIPine Besylate 10 MG TABLET PO (10:13)
[2021-04-07] MEDS: allopurinoL 100 MG TABLET PO (10:13)
[2021-04-07] MEDS: Apixaban 5 MG TABLET PO ×2 (10:13→19:03)
[2021-04-07] MEDS: Albuterol Sulfate (0.083%) 2.5 MG/3 ML VIAL.NEB 5 MG INHALE (12:49)
[2021-04-07] MEDS: Famotidine/PF 20 MG/2 ML VIAL IVPUSH (12:56)
[2021-04-07] MEDS: methylPREDNISolone Sod Succ 125 MG/2 ML VIAL IVPUSH (12:57)
[2021-04-07] MEDS: diphenhydrAMINE HCL 50 MG/ML VIAL 25 MG IVPUSH (12:57)
[2021-04-07] MEDS: Acetaminophen 325 MG TABLET 650 MG PO (12:58)
[2021-04-07 13:11] LABS: DRVVT Confirmation NEGATIVE (NEGATIVE); PTT (LAC) Screen 25 sec (< OR = 40)
--- NOTE | 2021-04-07 14:29 | PM.CCPN ---
Subjective Subjective Date of Service: 04/07/21 Interval History: 70-year-old male with rheumatoid arthritis and rheumatoid lung presented following longstanding pulmonary fibrosis of with a more accelerated phase and subacute in onset of hypoxemic respiratory failure and graduated up the oxygen ladder ultimately to BiPAP use Immunosuppressed most recently by Xeljanz and previously by mycophenolate and is also remained on the combined steroid and just received 3 days of 1 g Solu-Medrol each day as pulse therapy with no clinical response has dramatic work of breathing per almost almost completely dependent on the BiPAP mechanism No cardiac history and bedside echo showed normal anatomy Critical Care Time (minutes): 45 Physical Exam Vital Signs: Vital Signs: Last Vital Signs Temp 98.8 F 04/07/21 14:00 Pulse 100 04/07/21 14:00 Resp 28 H 04/07/21 14:00 BP 119/71 04/07/21 14:00 Pulse Ox 80 L 04/07/21 14:00 Body Mass Index 32.0 Neurologically intact awake alert and oriented Work of breathing unchanged with marked in 0 tachypnea and accessory muscle effort when on the nasal high-flow along with 100% non-rebreather with a very comfortable response to the BiPAP her actually CPAP with 12 cm water of pressure current oxygen saturation 91% with heart rate 82 respiratory rate 24 blood pressure 119/70 Cardiac exam with bedside echo showing normal LV function Abdomen benign soft good bowel sounds no organomegaly Objective Data Labs CBC & Chem 7: 04/07/21 05:13 04/07/21 05:13 Labs: Laboratory Results - last 24 hr 04/06/21 04/06/21 04/07/21 05:20 10:53 05:13 WBC 19.8 H RBC 4.31 L Hgb 13.1 L Hct 41.7 L MCV 96.8 MCH 30.4 MCHC 31.4 RDW 14.8 Plt Count 190 MPV 9.8 Immature Gran % (Auto) 3.5 H Neut % (Auto) 91.4 H Lymph % (Auto) 1.9 L [place] % (Auto) 3.0 Eos % (Auto) 0.0 Baso % (Auto) 0.2 Lymph # (Auto) 0.4 L [place] # (Auto) 0.6 Eos # (Auto) 0.0 Baso # (Auto) 0.0 Abs Immat Gran (auto) 0.70 H Absolute Neuts (auto) 18.1 H Absolute Nucleated RBC 0.000 Nucleated RBC % (auto) 0.0 Smear Tech's Comments VERIFIED PT INR APTT LA PTT Screen 25 dRVV Screen 57 H dRVVT Confirm Interp NEGATIVE Lupus Anticoag Interp SEE NOTE VBG pH VBG pCO2 VBG pO2 VBG HCO3 VBG O2 Saturation VBG Base Excess Sodium Potassium Chloride Carbon Dioxide Anion Gap BUN Creatinine Estim Creat Clear Calc Estimated GFR Random Glucose Calcium Phosphorus Magnesium Total Bilirubin AST ALT Alkaline Phosphatase Total Protein Albumin Hep Bs Antigen Negative Hep Bs Antibody REACTIVE Hep B Core Total Ab Nonreactive Hepatitis C Ab (EIA) Nonreactive 04/07/21 04/07/21 04/07/21 05:13 05:13 05:16 WBC RBC Hgb Hct MCV MCH MCHC RDW Plt Count MPV Immature Gran % (Auto) Neut % (Auto) Lymph % (Auto) [place] % (Auto) Eos % (Auto) Baso % (Auto) Lymph # (Auto) [place] # (Auto) Eos # (Auto) Baso # (Auto) Abs Immat Gran (auto) Absolute Neuts (auto) Absolute Nucleated RBC Nucleated RBC % (auto) Smear Tech's Comments PT 16.1 H INR 1.4 H APTT 26.8 LA PTT Screen dRVV Screen dRVVT Confirm Interp Lupus Anticoag Interp VBG pH 7.44 H VBG pCO2 38 VBG pO2 61 VBG HCO3 26 VBG O2 Saturation 88.0 VBG Base Excess 2.5 Sodium 142 Potassium 5.0 Chloride 109 H Carbon Dioxide 23 Anion Gap 15 BUN 41 H Creatinine 0.94 Estim Creat Clear Calc 94.6 Estimated GFR > 60 Random Glucose 118 H Calcium 8.5 Phosphorus 4.0 Magnesium 2.9 H Total Bilirubin 0.7 AST 28 ALT 26 Alkaline Phosphatase 77 Total Protein 5.4 L Albumin 3.3 L Hep Bs Antigen Hep Bs Antibody Hep B Core Total Ab Hepatitis C Ab (EIA) Microbiology Microbiology Results: Microbiology 03/28/21 11:32 Blood - Venous Blood Culture - Final No growth after 5 days. 03/28/21 11:22 Blood - Venous Blood Culture - Final No growth after 5 days. 04/02/21 08:12 Sputum - Expectorated Gram Stain - Final 04/02/21 08:12 Sputum - Expectorated Sputum Culture - Final Quality Stroke Does the patient have a stroke diagnosis?: No VTE Prior VTE?: No VTE Risk Level:: Medical - moderate - high VTE Device Contraindication: Treatment Not Indicated VTE Drug Contraindication: N/A - Med Ordered Progress Note: A&P Assessment and plan (1) ARDS (adult respiratory distress syndrome): Status: Acute (2) Respiratory failure with hypoxia: Status: Acute (3) Acute pneumonitis: Status: Acute (4) Pneumonia: Status: Acute (5) Syncope: Status: Acute (6) Pulmonary fibrosis: Status: Acute (7) Interstitial lung disease due to connective tissue disease: Status: Acute (8) Chronic rhinitis: Status: Acute (9) Cough: Status: Acute (10) Rheumatoid arthritis: Status: Acute (11) IPF (idiopathic pulmonary fibrosis): Status: Acute Assessment and Plan: Plan is to continue for now with antiviral and anti fungal and antibiotic regimen and her today we are infusing rituximab prepared for any potential reactions and thus far does not seem to be any and he will receive a 1000 mg
[2021-04-07] MEDS: 0.9 % Sodium Chloride Flush 3 ML SYRINGE IVFLUSH ×2 (15:57→23:42)
[2021-04-08] VITALS (37 sets, daily range): BP systolic 67–147; BP diastolic 39–79; PULSE 54–107; RESP 13–50; TEMP 36.2–36.9; O2SAT 68–97; BMI 32.3
[2021-04-08] MEDS: fentaNYL citrate/PF 100 MCG/2 ML VIAL 50 MCG IVPUSH ×8 (00:23→13:52)
[2021-04-08] MEDS: Doxycycline Hyclate 100 MG in 0.9 % Sodium Chloride 250 ML 166.67 MG IV (00:28)
[2021-04-08] MEDS: Furosemide 20 MG/2 ML VIAL IVPUSH ×2 (02:13→16:56)
--- NOTE | 2021-04-08 05:00 | PC.NURSE ---
CARE ASSUMED 23:15....REMAINS CPAP 12/FIO2 100%....TV 1000/Ve>20 L/M...SAO2 91-92% AT HS...AWAKE..ALERT..ORIENTED X3...RAPIDLY DESATS TO 70% AND RR 50'S WITH ANY ACTIVITY...MULTIPLE PRN DOSES FENTANYL GIVEN OVERNIGHT FOR WORK OF BREATHING...LUNGS COARSE...FINE CRACKLES LOWER RIDER...ICU PA PRESENT...LASIX 20 MG IV WITH MODERATE EFFECT...RIGHT ARM EDEMATOUS...PRN ADAPTORS RIGHT HAND/AC D/C'D...REMAINS #20 ANGIO RIGHT FOREARM/NEW #22 ANGIO STARTED LEFT FOREARM...AM CXR & BNP ORDERED BY PA....PRIOR MAZA CHANGED TO NEW #16 FR MAZA D/T OCCLUSION..PATIENT MARKED DYSPNEA/RAPID DESATURATION WHEN BRIEFLY FLAT FOR LINEN CHANGE..LENGTHY RECOVERY WHEN DYSPNEIC...REMAINS ALERT/ORIENTED X3/MENTATING AT BASE-LINE...DENIES PAIN
[2021-04-08 05:32] LABS: VBG Base Excess 1.3 mmol/L; VBG HCO3 27 mmol/L (22-26); VBG pCO2 50 mmHg; VBG pH 7.34 (7.32-7.43); VBG pO2 81 mmHg
[2021-04-08 05:36] LABS: Venous Blood Gas Refer to POC result
[2021-04-08 06:02] LABS: Basophils Percent Auto 0.1 % (0-2); Hematocrit 42.6 % (42-52); Hemoglobin 13.5 g/dl (14.0-18.0); Imm Gran Abs Auto 0.55 X10*3/uL (0.00-0.03); Imm Gran Pct Auto 2.2 % (0.0-0.4); Lymphocytes Absolute Auto 0.2 X10*3/uL (1.2-4.9); Lymphocytes Percent Auto 0.8 % (20-40); MANUAL DIFF FLAG SCAN; Mean Corpuscular HGB Conc 31.7 g/dl (31.0-36.0); Mean Corpuscular Hemoglobin 30.4 pg (27.0-33.0); Mean Corpuscular Volume 95.9 fL (80-98); Mean Platelet Volume 10.1 fL (9.4-12.4); Neutrophils Absolute Auto 23.5 X10*3/uL (2.0-8.3); Neutrophils Percent Auto 92.9 % (45-73); Platelet Count 205 X10*3/uL (160-400); Red Blood Count 4.44 X10*6/uL (4.60-5.80); Red Cell Distribution Width 14.9 % (11.0-16.0); SCAN SMEAR FLAG 1; White Blood Count 25.3 X10*3/uL (4.8-10.8)
[2021-04-08 06:09] LABS: INTERNATIONAL NORM RATIO 1.4 (0.9-1.1)
[2021-04-08 06:12] LABS: Partial Thromboplastin Time 25.5 SEC (24.1-38.0)
[2021-04-08 06:15] LABS: Alanine Aminotransferase 23 U/L (0-40); Albumin Level 3.2 g/dL (3.5-5.0); Alkaline Phosphatase 91 U/L (39-117); Anion Gap 15 (12-20); Aspartate Amino Transferase 36 U/L (5-37); Bilirubin Total 0.7 mg/dL (0.0-1.0); Blood Urea Nitrogen 45 mg/dL (9-16); Calcium 8.5 mg/dL (8.4-10.2); Carbon Dioxide 24 mmol/L (22-29); Chloride 109 mmol/L (96-108); Creatinine Clr Calc Pharmacy 82.8; Estimated Glomerular Filt Rate > 60; Glucose Random 106 mg/dL (60-115); Magnesium 2.8 mg/dL (1.6-2.6); Phosphorus 4.4 mg/dL (2.7-4.5); Potassium 5.1 mmol/L (3.3-5.1); Sodium 143 mmol/L (135-145); Total Protein 5.3 g/dL (6.5-8.0)
[2021-04-08 06:27] LABS: SLIDE REVIEW VERIFIED
[2021-04-08] MEDS: 0.9 % Sodium Chloride Flush 3 ML SYRINGE IVFLUSH ×4 (07:29→23:34)
[2021-04-08] MEDS: Apixaban 5 MG TABLET PO ×2 (07:30→20:18)
[2021-04-08] MEDS: Valsartan 160 MG TABLET PO (07:30)
[2021-04-08] MEDS: amLODIPine Besylate 10 MG TABLET PO (07:31)
[2021-04-08] MEDS: allopurinoL 100 MG TABLET PO (07:31)
[2021-04-08] MEDS: guaiFENesin LA 600 MG TAB.ER.12H 1200 MG PO (07:31)
--- NOTE | 2021-04-08 09:45 | P.PNPL_ITS ---
Subjective Subjective Date of Service: 04/08/21 Principal diagnosis: ILD/ RESP.FAILURE Interval history: The patient was seen and examined. Tolerated CPAP very well last night. Had a difficult transition to non-rebreather high-flow this morning. Therefore the patient is agreeable to go back on CPAP. Currently on CPAP of 12. He did have a chest x-ray demonstrating improved aeration of the lungs but still with the bilateral airspace disease and hazy opacities. Patient is status post Rituxan 1 g yesterday. The patient is a full code. He does not want to go on mechanical ventilation this time. Will continue monitoring his respiratory status. I did encourage him to stay on the CPAP as much as possible and taking breaks as needed. Objective Data Labs CBC & Chem 7: 04/08/21 05:23 04/08/21 05:23 Labs: Laboratory Results - last 24 hr 04/06/21 04/08/21 04/08/21 10:53 05:23 05:23 WBC 25.3 H RBC 4.44 L Hgb 13.5 L Hct 42.6 MCV 95.9 MCH 30.4 MCHC 31.7 RDW 14.9 Plt Count 205 MPV 10.1 Immature Gran % (Auto) 2.2 H Neut % (Auto) 92.9 H Lymph % (Auto) 0.8 L [place] % (Auto) 4.0 Eos % (Auto) 0.0 Baso % (Auto) 0.1 Lymph # (Auto) 0.2 L [place] # (Auto) 1.0 Eos # (Auto) 0.0 Baso # (Auto) 0.0 Abs Immat Gran (auto) 0.55 H Absolute Neuts (auto) 23.5 H Absolute Nucleated RBC 0.000 Nucleated RBC % (auto) 0.0 Smear Tech's Comments VERIFIED PT 16.0 H INR 1.4 H APTT 25.5 LA PTT Screen 25 LA Thrombin Time TNP dRVV Screen 57 H dRVVT Confirm Interp NEGATIVE dRVVT Mixing Study TNP dRVVT Mix Interpret TNP Hexagon Phase Neutraliz TNP Lupus Anticoag Interp SEE NOTE VBG pH VBG pCO2 VBG pO2 VBG HCO3 VBG O2 Saturation VBG Base Excess Sodium Potassium Chloride Carbon Dioxide Anion Gap BUN Creatinine Estim Creat Clear Calc Estimated GFR Random Glucose Calcium Phosphorus Magnesium Total Bilirubin AST ALT Alkaline Phosphatase Total Protein Albumin 04/08/21 04/08/21 05:23 05:27 WBC RBC Hgb Hct MCV MCH MCHC RDW Plt Count MPV Immature Gran % (Auto) Neut % (Auto) Lymph % (Auto) [place] % (Auto) Eos % (Auto) Baso % (Auto) Lymph # (Auto) [place] # (Auto) Eos # (Auto) Baso # (Auto) Abs Immat Gran (auto) Absolute Neuts (auto) Absolute Nucleated RBC Nucleated RBC % (auto) Smear Tech's Comments PT INR APTT LA PTT Screen LA Thrombin Time dRVV Screen dRVVT Confirm Interp dRVVT Mixing Study dRVVT Mix Interpret Hexagon Phase Neutraliz Lupus Anticoag Interp VBG pH 7.34 VBG pCO2 50 VBG pO2 81 VBG HCO3 27 H VBG O2 Saturation 93.0 VBG Base Excess 1.3 Sodium 143 Potassium 5.1 Chloride 109 H Carbon Dioxide 24 Anion Gap 15 BUN 45 H Creatinine 1.07 Estim Creat Clear Calc 82.8 Estimated GFR > 60 Random Glucose 106 Calcium 8.5 Phosphorus 4.4 Magnesium 2.8 H Total Bilirubin 0.7 AST 36 ALT 23 Alkaline Phosphatase 91 Total Protein 5.3 L Albumin 3.2 L Microbiology Microbiology Results: Microbiology 03/28/21 11:32 Blood - Venous Blood Culture - Final No growth after 5 days. 03/28/21 11:22 Blood - Venous Blood Culture - Final No growth after 5 days. 04/02/21 08:12 Sputum - Expectorated Gram Stain - Final 04/02/21 08:12 Sputum - Expectorated Sputum Culture - Final Review of Systems Review of Systems Denies any recent fever chills or decrease in appetite respiratory dyspnea cardiovascular denies chest pain gastrointestinal denies any dysphagia abdominal pain nausea vomiting or diarrhea genitourinary denies any dysuria frequency or hematuria musculoskeletal denies any joint pain or swelling neuropsych denies any weakness or seizures all other systems reviewed are negative Physical Exam Vital Signs: Vital Signs: Last Vital Signs Temp 97.2 F 04/08/21 08:00 Pulse 84 04/08/21 09:00 Resp 20 04/08/21 09:35 BP 117/67 04/08/21 09:00 Pulse Ox 81 L 04/08/21 09:00 Body Mass Index 32.3 Const: General: alert, in distress mild and moderate and tired appearing Neck: Neck: Yes normal visual inspection, Yes full ROM and Yes no lymphadenopathy Chest: Chest palpation & inspection: normal inspection of the chest Resp: Auscultation: rales, diminished lung sounds and bronchial breath sounds Cardio: Rate: regular rate Rhythm: regular rhythm Heart sounds: S1 normal heart sound present and S2 normal heart sound present GI: Palpation (GI): Soft to palpation and nontender Auscultation: normal bowel sounds Skin: General skin exam: rashes and/or lesions noted Procedures Date of Service Date of Service: 04/08/21 Assessment and Plan Assessment and plan (1) Respiratory failure with hypoxia: Status: Acute (2) Acute pneumonitis: Status: Acute (3) Pneumonia: Status: Acute (4) Pulmonary fibrosis: Status: Acute (5) Interstitial lung disease due to connective tissue disease: Status: Acute (6) Rheumatoid arthritis: Status: Acute Assessment and Plan: Continue Solu-Medrol 60 mg p.o. daily Okay to stop meropenem and doxycycline as he completed more than 10 days of antibiotics Switch vericonazole to PO Continue IV acyclovir Continue Bactrim Continue CPAP as tolerated. Considered mechanical ventilation and his respira tory status worsens or the patient fatigues to the point of not being able to tolerate maintaining proper gas exchange Continue to monitor closely Also to note I did speak to Dr. Jimenez from [place]. The did request imaging studies of the can review the case. Did did agree that Rituxan was the right approach. Time Spent With Patient Time: Total time spent is greater than 50% in coordination of care (as documented) at patient's floor/unit and/or counseling patient: Time with patient: Greater than 35 minutes Progress Note: Quality Stroke Does the patient have a stroke diagnosis?: No
--- NOTE | 2021-04-08 10:19 | MHC.CLN ---
recommend adding ensure tid r/t poor po
--- NOTE | 2021-04-08 11:14 | MHC.CM.PN ---
Pt remains in ICU on high flow O2. Pt not tolerating reductions in O2 amounts and is extremely dyspneic and desats with any activity. [facility] referrals made in the event pt cannot return to home with high O2 needs. Pt will need an uploaded copy of a HCP as well as COVID vax dates: Pt's spouse to visit today: CM will attempt to meet with her to address above.
[2021-04-08] MEDS: predniSONE 10 MG TABLET PO (11:25)
[2021-04-08] MEDS: dexmedeTOMIDidine HCL/NS 400 MCG/100 ML INFUS..BTL IVCONT (13:30)
[2021-04-08 14:11] LABS: Antibody to SS-A Antigen <1.0 NEG AI (<1.0 NEG); Antibody to SS-B Antigen <1.0 NEG AI (<1.0 NEG)
--- NOTE | 2021-04-08 16:27 | HO.PICC ---
PICC Line Insertion [facility] Diagnosis: [Resp Failure] Indication: [IV access and CVP monitoring] Pertinent Labs: [Reviewed] Technique: Following informed consent including risks, benefits and alternatives and using sterile technique including cap and mask, sterile gown, glove and drape, the [right] arm was prepped and draped in the usual sterile fashion of full barrier technique with CHG. Following completion of [place] Protocol the skin and soft tissues were anesthetized with 1% Lidocaine plain. Using ultrasound guidance, [right basilic] vein access was obtained twice by Ruben Gutierrez RN, but unable to pass guidewire. Right basilic vein accessed by Ricardo Kramer RN on first attempt. Over an 0.018 wire through peel-away sheath, a [5FR] Triple lumen PICC line was positioned. Catheter length is [41 CM] internal length, [0 CM] external length, for a total trimmed length of [41 CM]. The procedure was performed in [ICU room 252]. Tip verification was performed by Dejuan Mcfadden with [employer] 3CG. Tip located in SVC. Ultrasound was used to document vein patency and for needle entry. A formal ultrasound picture and cardiac rhythm strip was recorded. [employer] has released the line for use and it is currently dressed with a StatLock, Tegaderm, and CHG disc. Verification has been performed for blood return and line patency. Arm Circumference: [31 CM] Equipment: [[employer] Power PICC Solo] Catheter Type: [5FR Triple Lumen PICC] Lot #: [[id number]]
--- NOTE | 2021-04-08 17:13 | P.PNCC_ITS ---
Subjective Subjective Date of Service: 04/08/21 Interval History: 70-year-old male with rheumatoid arthritis and rheumatoid lung with extensive interstitial fibrosis with a accelerated worsening pattern and acute hypoxemic respiratory failure and somewhat progressively worse now with complete BiPAP dependence just for oxygen saturation of 83-85% with significant work of breathing but still his wish in his family's wishes to hold off as long as possible on intubation but he is now 48 hours status post completion of 3 days of pulse steroids and 24 hours after IV rituximab and at this point we have completed his course of antibiotics which will be stopped and we will maintain voriconazole and valacyclovir orally to spare him fluid intake and PICC line was placed with an initial CVP of 11-12 so I will empirically give him 1 more dose of Lasix 20 mg as an IV push and I have explained to the family we are very close to requiring intubation Critical Care Time (minutes): 60 Physical Exam Vital Signs: Vital Signs: Last Vital Signs Temp 97.5 F 04/08/21 12:00 Pulse 61 04/08/21 16:59 Resp 21 H 04/08/21 16:59 BP 108/59 L 04/08/21 16:59 Pulse Ox 84 L 04/08/21 16:59 Body Mass Index 32.3 Objective Data Labs CBC & Chem 7: 04/08/21 05:23 04/08/21 05:23 Labs: Laboratory Results - last 24 hr 04/06/21 04/06/21 04/08/21 10:53 10:53 05:23 WBC 25.3 H RBC 4.44 L Hgb 13.5 L Hct 42.6 MCV 95.9 MCH 30.4 MCHC 31.7 RDW 14.9 Plt Count 205 MPV 10.1 Immature Gran % (Auto) 2.2 H Neut % (Auto) 92.9 H Lymph % (Auto) 0.8 L [place] % (Auto) 4.0 Eos % (Auto) 0.0 Baso % (Auto) 0.1 Lymph # (Auto) 0.2 L [place] # (Auto) 1.0 Eos # (Auto) 0.0 Baso # (Auto) 0.0 Abs Immat Gran (auto) 0.55 H Absolute Neuts (auto) 23.5 H Absolute Nucleated RBC 0.000 Nucleated RBC % (auto) 0.0 Smear Tech's Comments VERIFIED PT INR APTT LA Thrombin Time TNP dRVVT Mixing Study TNP dRVVT Mix Interpret TNP Hexagon Phase Neutraliz TNP VBG pH VBG pCO2 VBG pO2 VBG HCO3 VBG O2 Saturation VBG Base Excess Sodium Potassium Chloride Carbon Dioxide Anion Gap BUN Creatinine Estim Creat Clear Calc Estimated GFR Random Glucose Calcium Phosphorus Magnesium Total Bilirubin AST ALT Alkaline Phosphatase Total Protein Albumin SS-A/Ro Antibody <1.0 NEG SS-B/La Antibody <1.0 NEG 04/08/21 04/08/21 04/08/21 05:23 05:23 05:27 WBC RBC Hgb Hct MCV MCH MCHC RDW Plt Count MPV Immature Gran % (Auto) Neut % (Auto) Lymph % (Auto) [place] % (Auto) Eos % (Auto) Baso % (Auto) Lymph # (Auto) [place] # (Auto) Eos # (Auto) Baso # (Auto) Abs Immat Gran (auto) Absolute Neuts (auto) Absolute Nucleated RBC Nucleated RBC % (auto) Smear Tech's Comments PT 16.0 H INR 1.4 H APTT 25.5 LA Thrombin Time dRVVT Mixing Study dRVVT Mix Interpret Hexagon Phase Neutraliz VBG pH 7.34 VBG pCO2 50 VBG pO2 81 VBG HCO3 27 H VBG O2 Saturation 93.0 VBG Base Excess 1.3 Sodium 143 Potassium 5.1 Chloride 109 H Carbon Dioxide 24 Anion Gap 15 BUN 45 H Creatinine 1.07 Estim Creat Clear Calc 82.8 Estimated GFR > 60 Random Glucose 106 Calcium 8.5 Phosphorus 4.4 Magnesium 2.8 H Total Bilirubin 0.7 AST 36 ALT 23 Alkaline Phosphatase 91 Total Protein 5.3 L Albumin 3.2 L SS-A/Ro Antibody SS-B/La Antibody Microbiology Microbiology Results: Microbiology 03/28/21 11:32 Blood - Venous Blood Culture - Final No growth after 5 days. 03/28/21 11:22 Blood - Venous Blood Culture - Final No growth after 5 days. 04/02/21 08:12 Sputum - Expectorated Gram Stain - Final 04/02/21 08:12 Sputum - Expectorated Sputum Culture - Final Quality Stroke Does the patient have a stroke diagnosis?: No VTE Prior VTE?: No VTE Risk Level:: Medical - moderate - high VTE Device Contraindication: Treatment Not Indicated VTE Drug Contraindication: N/A - Med Ordered
--- NOTE | 2021-04-08 17:33 | PC.NURSE ---
Patient remained on CPAP12 all day after failing two attempts at transition to [id number]/100+[id number]% IV ABTx discontinues after rounds. PO Bactrim continues. Acyclovir and Voriconazole IV converted to PO. Pateint continues to rapidly desat with movement, talking and removeal of CPAP mask for PO meds. PRN Fentanyl give IVP several times throughout the day with fair effect but would wear off within the hour. IV Precidex started and titrated up to 1mcg/kg/min. BP dropped durring PICC insertion, juana to 50s Precidex weaned down to 0.5mcg/kg/min Continues to be anxious and wants mask off to eat/drink. Family notified. Patient to be intubated at this time.
[2021-04-08] MEDS: Rocuronium Bromide 50 MG/5 ML VIAL IVPUSH (17:44)
[2021-04-08] MEDS: propofoL 1,000 MG/100 ML VIAL 13.01 MG IVCONT (17:45)
[2021-04-08] MEDS: propofoL 200 MG/20 ML VIAL 50 MG IVPUSH (17:46)
--- NOTE | 2021-04-08 18:14 | P.PCNCC_ITS ---
Procedures Date of Service Date of Service: 04/08/21 Intubation Intubation Comments: Utilizing glide scope guidance and a number for glide scope blade with excellent visualization of the vocal cords and excellent end-tidal CO2 response and good bilateral breath sounds and a 7.5 endotracheal tube intubation was performed without complication and chest x-ray confirmed that were still 5 cm above the srikanth even though he is at 27 cm at the lip Consent for Procedure: Elective - informed consent obtained Time out performed: Yes Sedative: propofol Paralytic: rocuronium Laryngoscope: fiber optic video scope ET tube size: 7.5 ET tube uncuffed: Yes Tube secured depth (cm): 27 Tube placement confirmation: visualized tube passing through cords, equal breath sounds bilaterally, no breath sounds over epigastrium and confirmation by capnom etry Patient tolerated procedure: well and no complications Intubation complications: none
[2021-04-08] MEDS: 0.9 % Sodium Chloride 1,000 ML 500 ML IV (18:46)
[2021-04-08] MEDS: fentaNYL citrate/NS 1,000 MCG/100 ML PLAST..BAG 5 MCG IVCONT (20:19)
[2021-04-08] MEDS: propofoL 1,000 MG/100 ML VIAL 26.02 MG IVCONT (21:10)
[2021-04-08 21:26] LABS: TS Negative Control Passed; TS Panel A 0; TS Panel B 0; TS Positive Control Passed; TSpotTB Negative (SeeBelow)
--- NOTE | 2021-04-08 21:51 | PC.NURSE ---
Pt intubated at approx 1800. 50mg IVP propofol and 50 mg IVP rocuronium given x1 for intubation. Family aware and at bedside before/after procedure. OGT placed, restraints placed for safety. ETT# 7.5, 27 cm at lip. Sputum sample sent- suctioned for moderate amount of thick cream/bloody secretions. Vent settings- AC 16/550/10/90%. Overbreathes vent, stacks breaths with intermittent high peak pressures. Sedated on propofol/fentanyl- arousable to tactile stimuli, reaches for ETT/lines. Attempts to wean sedation met with dysynchrony and SpO2 down to 68%. NSR on tele, HR 60s. Levophed ordered and titrated to maintain MAP > 65. Promote tube feeds started at 20 ml/hr. Bocanegra in place, UOP approx 50-100 ml/hr. Skin intact- bruising, buttocks red but blanchable. Switched to size mcnulty bed and placed on prevalon mattress system.
[2021-04-09] VITALS (40 sets, daily range): BP systolic 84–118; BP diastolic 39–65; PULSE 66–100; RESP 16–26; TEMP 36.4–37; O2SAT 84–97; BMI 33.3
[2021-04-09] MEDS: Pantoprazole Sodium 40 MG/10 ML VIAL IVPUSH ×2 (00:06→08:26)
[2021-04-09] MEDS: propofoL 1,000 MG/100 ML VIAL 32.52 MG IVCONT (00:18)
[2021-04-09 00:27] LABS: GASOB Int Neg Ctl Valid YES; GASOB Int Pos Ctl Valid YES; Occult Blood Gastric POS (NEG)
[2021-04-09] MEDS: fentaNYL citrate/NS 1,000 MCG/100 ML PLAST..BAG 20 MCG IVCONT (02:27)
[2021-04-09] MEDS: propofoL 1,000 MG/100 ML VIAL 26.02 MG IVCONT ×2 (03:23→07:11)
[2021-04-09 05:24] LABS: VBG Base Excess -0.2 mmol/L; VBG HCO3 29 mmol/L (22-26); VBG pCO2 72 mmHg; VBG pH 7.21 (7.32-7.43); VBG pO2 64 mmHg
[2021-04-09 05:53] LABS: Basophils Percent Auto 0.1 % (0-2); Hemoglobin 11.9 g/dl (14.0-18.0); Imm Gran Abs Auto 0.71 X10*3/uL (0.00-0.03); Imm Gran Pct Auto 2.6 % (0.0-0.4); Lymphocytes Absolute Auto 0.4 X10*3/uL (1.2-4.9); Lymphocytes Percent Auto 1.4 % (20-40); MANUAL DIFF FLAG SCAN; Mean Corpuscular HGB Conc 30.5 g/dl (31.0-36.0); Mean Corpuscular Hemoglobin 30.6 pg (27.0-33.0); Mean Corpuscular Volume 100.3 fL (80-98); Mean Platelet Volume 9.7 fL (9.4-12.4); Monocytes Absolute Auto 0.9 X10*3/uL (0.1-1.2); Monocytes Percent Auto 3.4 % (2-11); NRBC Pct Auto 0.1 /100WBC (0.0-0.2); Neutrophils Absolute Auto 25.1 X10*3/uL (2.0-8.3); Neutrophils Percent Auto 92.5 % (45-73); Platelet Count 214 X10*3/uL (160-400); Red Blood Count 3.89 X10*6/uL (4.60-5.80); Red Cell Distribution Width 14.8 % (11.0-16.0); SCAN SMEAR FLAG 1; White Blood Count 27.1 X10*3/uL (4.8-10.8)
[2021-04-09 06:07] LABS: Alanine Aminotransferase 19 U/L (0-40); Albumin Level 2.9 g/dL (3.5-5.0); Alkaline Phosphatase 86 U/L (39-117); Anion Gap 13 (12-20); Aspartate Amino Transferase 31 U/L (5-37); Bilirubin Total 0.3 mg/dL (0.0-1.0); Blood Urea Nitrogen 64 mg/dL (9-16); Calcium 8.1 mg/dL (8.4-10.2); Carbon Dioxide 27 mmol/L (22-29); Chloride 108 mmol/L (96-108); Creatinine Clr Calc Pharmacy 58.7; Estimated Glomerular Filt Rate 45; Glucose Random 181 mg/dL (60-115); INTERNATIONAL NORM RATIO 1.4 (0.9-1.1); Phosphorus 6.4 mg/dL (2.7-4.5); Potassium 5.2 mmol/L (3.3-5.1); Prothrombin Time 15.5 SEC (9.9-13.0); Sodium 143 mmol/L (135-145); Total Protein 4.8 g/dL (6.5-8.0)
[2021-04-09 06:10] LABS: Partial Thromboplastin Time 26.9 SEC (24.1-38.0)
[2021-04-09 06:12] LABS: B Type Natriuretic Peptide 23 pg/mL (<100)
[2021-04-09 06:17] LABS: Venous Blood Gas Refer to POC result
[2021-04-09 06:26] LABS: SLIDE REVIEW VERIFIED
--- NOTE | 2021-04-09 06:27 | PC.NURSE ---
CARE ASSUMED 23:15...REMAINS TUBED/VENTED--VCV AC 16/TV 550/FIO2 90%/PEEP 10...RR 18-20...SUCTIONED BLOODY SECRETIONS VIA ETT...TUBE FEEDS 20 CC/HR..ASPIRATED 75 CC BROWN ASPIRATE..ICU PA PRESENT..ASPIRATE TESTED GUIAC (+)...PROTONIX IV GIVEN...TUBE FEEDS TITRATED PER CPOE...NO FURTHER BROW ASPIRATE OVERNIGHT...PROPOFOL/FENTAL TITRATED PER MAR TO MAINTAIN VENT SYNCHRONY....SAO2 IHIGHER WITH RIGHT SIDE DOWNWARD...AM VBG REVIEWED WITH ICU PA...AC RATE INCREASED TO 20...REMAINS WITH MARGINAL URINE OUTPUT...NSR..ISOLATED PVC
[2021-04-09] MEDS: predniSONE 10 MG TABLET PO (07:23)
[2021-04-09] MEDS: Chlorhexidine Gluc Oral Rinse 15 ML MOUTHWASH BUCCAL ×3 (07:24→19:44)
[2021-04-09] MEDS: 0.9 % Sodium Chloride Flush 3 ML SYRINGE IVFLUSH ×2 (07:24→17:11)
[2021-04-09] MEDS: fentaNYL citrate/NS 1,000 MCG/100 ML PLAST..BAG 12.5 MCG IVCONT (08:21)
[2021-04-09 08:45] LABS: Appearance Urine HAZY; Color Urine YELLOW; Glucose Urine UA NEG (NEG); Leukocyte Esterase Urine NEG (NEG); Nitrite Urine NEG (NEG); PH 5.5 (5.0-8.0); Specific Gravity - Urine >= 1.030 (1.005-1.025); Urine Blood 3+ (NEG); Urine Ketones NEG (NEG); Urine Protein 1+ MG/DL (NEG-TRACE)
[2021-04-09 09:05] LABS: Creatinine Urine 86.07 mg/dL
[2021-04-09 09:19] LABS: RBC Urine 50-75 /HPF (0); Renal Epithelial Cells Urine 1+ /LPF; Squamous Epithelial Cell Urine 1+ /LPF
[2021-04-09 09:20] LABS: Amorphous Sediment Urine 2+ /LPF; Granular Casts Urine 0-2 /LPF; Mucus Urine 1+ /LPF; Uric Acid Crystals Urine TRACE /LPF
--- NOTE | 2021-04-09 11:30 | PM.PNPUL ---
Subjective Subjective Date of Service: 04/09/21 Principal diagnosis: ILD/ RESP.FAILURE Interval history: Seen and examined earlier today. He was intubated for worsening respiratory acidosis. Currently on PC 20 PEEP 10 100%. Developed DAVIDSON and renal consult. Taken off the bactrim. On Solu cortef/levophed/propofol/fentanyl. Objective Data Labs CBC & Chem 7: 04/09/21 05:15 04/09/21 22:11 Labs: Laboratory Results - last 24 hr 04/08/21 04/09/21 04/09/21 23:58 05:15 05:15 WBC 27.1 H RBC 3.89 L Hgb 11.9 L Hct 39.0 L MCV 100.3 H MCH 30.6 MCHC 30.5 L RDW 14.8 Plt Count 214 MPV 9.7 Immature Gran % (Auto) 2.6 H Neut % (Auto) 92.5 H Lymph % (Auto) 1.4 L Morris % (Auto) 3.4 Eos % (Auto) 0.0 Baso % (Auto) 0.1 Lymph # (Auto) 0.4 L Morris # (Auto) 0.9 Eos # (Auto) 0.0 Baso # (Auto) 0.0 Abs Immat Gran (auto) 0.71 H Absolute Neuts (auto) 25.1 H Absolute Nucleated RBC 0.030 H Nucleated RBC % (auto) 0.1 Smear Tech's Comments VERIFIED PT INR APTT VBG pH VBG pCO2 VBG pO2 VBG HCO3 VBG O2 Saturation VBG Base Excess Sodium Potassium Chloride Carbon Dioxide Anion Gap BUN Creatinine Estim Creat Clear Calc Estimated GFR POC Glucose Random Glucose Lactic Acid Calcium Phosphorus Magnesium Total Bilirubin AST ALT Alkaline Phosphatase B-Natriuretic Peptide 23 Total Protein Albumin 25-OH Vitamin D Total Procalcitonin TSH Urine Color Urine Appearance Urine pH Ur Specific [place] Urine Protein Urine Glucose (UA) Urine Ketones Urine Blood Urine Nitrite Ur Leukocyte Esterase Urine RBC Urine WBC Ur Squamous Epith Cells Ur Renal Epithelial Cell Uric Acid Crystals Amorphous Sediment Urine Bacteria Granular Casts Urine Mucus Ur Random Sodium Urine Creatinine Gastric Occult Blood POS 04/09/21 04/09/21 04/09/21 05:15 05:15 05:18 WBC RBC Hgb Hct MCV MCH MCHC RDW Plt Count MPV Immature Gran % (Auto) Neut % (Auto) Lymph % (Auto) Morris % (Auto) Eos % (Auto) Baso % (Auto) Lymph # (Auto) Morris # (Auto) Eos # (Auto) Baso # (Auto) Abs Immat Gran (auto) Absolute Neuts (auto) Absolute Nucleated RBC Nucleated RBC % (auto) Smear Tech's Comments PT 15.5 H INR 1.4 H APTT 26.9 VBG pH 7.21 L VBG pCO2 72 VBG pO2 64 VBG HCO3 29 H VBG O2 Saturation 84.0 VBG Base Excess -0.2 Sodium 143 Potassium 5.2 H Chloride 108 Carbon Dioxide 27 Anion Gap 13 BUN 64 H Creatinine 1.53 H Estim Creat Clear Calc 58.7 Estimated GFR 45 POC Glucose Random Glucose 181 H D Lactic Acid Calcium 8.1 L Phosphorus 6.4 H Magnesium 3.0 H Total Bilirubin 0.3 AST 31 ALT 19 Alkaline Phosphatase 86 B-Natriuretic Peptide Total Protein 4.8 L Albumin 2.9 L 25-OH Vitamin D Total Procalcitonin TSH Urine Color Urine Appearance Urine pH Ur Specific [place] Urine Protein Urine Glucose (UA) Urine Ketones Urine Blood Urine Nitrite Ur Leukocyte Esterase Urine RBC Urine WBC Ur Squamous Epith Cells Ur Renal Epithelial Cell Uric Acid Crystals Amorphous Sediment Urine Bacteria Granular Casts Urine Mucus Ur Random Sodium Urine Creatinine Gastric Occult Blood 04/09/21 04/09/21 04/09/21 08:34 08:39 12:19 WBC RBC Hgb Hct MCV MCH MCHC RDW Plt Count MPV Immature Gran % (Auto) Neut % (Auto) Lymph % (Auto) Morris % (Auto) Eos % (Auto) Baso % (Auto) Lymph # (Auto) Morris # (Auto) Eos # (Auto) Baso # (Auto) Abs Immat Gran (auto) Absolute Neuts (auto) Absolute Nucleated RBC Nucleated RBC % (auto) Smear Tech's Comments PT INR APTT VBG pH VBG pCO2 VBG pO2 VBG HCO3 VBG O2 Saturation VBG Base Excess Sodium 141 Potassium 4.3 Chloride 113 H Carbon Dioxide 20 L Anion Gap 12 BUN 57 H Creatinine 1.44 H Estim Creat Clear Calc 62.3 Estimated GFR 49 POC Glucose Random Glucose 142 H Lactic Acid Calcium 6.6 L D Phosphorus Magnesium Total Bilirubin AST ALT Alkaline Phosphatase B-Natriuretic Peptide Total Protein Albumin 25-OH Vitamin D Total Procalcitonin TSH Urine Color YELLOW Urine Appearance HAZY Urine pH 5.5 Ur Specific [place] >= 1.030 H Urine Protein 1+ H Urine Glucose (UA) NEG Urine Ketones NEG Urine Blood 3+ H Urine Nitrite NEG Ur Leukocyte Esterase NEG Urine RBC 50-75 H Urine WBC 1-4 Ur Squamous Epith Cells 1+ Ur Renal Epithelial Cell 1+ Uric Acid Crystals TRACE Amorphous Sediment 2+ Urine Bacteria NONE Granular Casts 0-2 Urine Mucus 1+ Ur Random Sodium 38.0 Urine Creatinine 86.07 Gastric Occult Blood 04/09/21 04/09/21 04/09/21 12:28 13:25 15:25 WBC RBC Hgb Hct MCV MCH MCHC RDW Plt Count MPV Immature Gran % (Auto) Neut % (Auto) Lymph % (Auto) Morris % (Auto) Eos % (Auto) Baso % (Auto) Lymph # (Auto) Morris # (Auto) Eos # (Auto) Baso # (Auto) Abs Immat Gran (auto) Absolute Neuts (auto) Absolute Nucleated RBC Nucleated RBC % (auto) Smear Tech's Comments PT INR APTT VBG pH 7.18 L* 7.17 L* VBG pCO2 58 57 VBG pO2 61 70 VBG HCO3 22 21 L VBG O2 Saturation 83.0 88.0 VBG Base Excess -6.3 -7.2 Sodium Potassium Chloride Carbon Dioxide Anion Gap BUN Creatinine Estim Creat Clear Calc Estimated GFR POC Glucose Random Glucose Lactic Acid 0.8 Calcium Phosphorus Magnesium Total Bilirubin AST ALT Alkaline Phosphatase B-Natriuretic Peptide Total Protein Albumin 25-OH Vitamin D Total Procalcitonin TSH Urine Color Urine Appearance Urine pH Ur Specific [place] Urine Protein Urine Glucose (UA) Urine Ketones Urine Blood Urine Nitrite Ur Leukocyte Esterase Urine RBC Urine WBC Ur Squamous Epith Cells Ur Renal Epithelial Cell Uric Acid Crystals Amorphous Sediment Urine Bacteria Granular Casts Urine Mucus Ur Random Sodium Urine Creatinine Gastric Occult Blood 04/09/21 04/09/21 04/09/21 15:26 15:26 15:26 WBC RBC Hgb Hct MCV MCH MCHC RDW Plt Count MPV Immature Gran % (Auto) Neut % (Auto) Lymph % (Auto) Morris % (Auto) Eos % (Auto) Baso % (Auto) Lymph # (Auto) Morris # (Auto) Eos # (Auto) Baso # (Auto) Abs Immat Gran (auto) Absolute Neuts (auto) Absolute Nucleated RBC Nucleated RBC % (auto) Smear Tech's Comments PT INR APTT VBG pH VBG pCO2 VBG pO2 VBG HCO3 VBG O2 Saturation VBG Base Excess Sodium 143 Potassium 6.0 H* D Chloride 108 Carbon Dioxide 28 Anion Gap 13 BUN 75 H Creatinine 2.15 H Estim Creat Clear Calc 41.7 Estimated GFR 31 POC Glucose Random Glucose 192 H D Lactic Acid Calcium 8.4 D Phosphorus Magnesium Total Bilirubin AST ALT Alkaline Phosphatase B-Natriuretic Peptide Total Protein Albumin 25-OH Vitamin D Total 6.5 Procalcitonin TSH 0.49 Urine Color Urine Appearance Urine pH Ur Specific [place] Urine Protein Urine Glucose (UA) Urine Ketones Urine Blood Urine Nitrite Ur Leukocyte Esterase Urine RBC Urine WBC Ur Squamous Epith Cells Ur Renal Epithelial Cell Uric Acid Crystals Amorphous Sediment Urine Bacteria Granular Casts Urine Mucus Ur Random Sodium Urine Creatinine Gastric Occult Blood 04/09/21 04/09/21 04/09/21 15:26 15:32 15:59 WBC RBC Hgb Hct MCV MCH MCHC RDW Plt Count MPV Immature Gran % (Auto) Neut % (Auto) Lymph % (Auto) Morris % (Auto) Eos % (Auto) Baso % (Auto) Lymph # (Auto) Morris # (Auto) Eos # (Auto) Baso # (Auto) Abs Immat Gran (auto) Absolute Neuts (auto) Absolute Nucleated RBC Nucleated RBC % (auto) Smear Tech's Comments PT INR APTT VBG pH 7.24 L VBG pCO2 94 VBG pO2 64 VBG HCO3 41 H VBG O2 Saturation 87.0 VBG Base Excess 10.7 Sodium Potassium Chloride Carbon Dioxide Anion Gap BUN Creatinine Estim Creat Clear Calc Estimated GFR POC Glucose 180 H Random Glucose Lactic Acid Calcium Phosphorus Magnesium Total Bilirubin AST ALT Alkaline Phosphatase B-Natriuretic Peptide Total Protein Albumin 25-OH Vitamin D Total Procalcitonin 0.26 TSH Urine Color Urine Appearance Urine pH Ur Specific [place] Urine Protein Urine Glucose (UA) Urine Ketones Urine Blood Urine Nitrite Ur Leukocyte Esterase Urine RBC Urine WBC Ur Squamous Epith Cells Ur Renal Epithelial Cell Uric Acid Crystals Amorphous Sediment Urine Bacteria Granular Casts Urine Mucus Ur Random Sodium Urine Creatinine Gastric Occult Blood 04/09/21 04/09/21 22:11 22:13 WBC RBC Hgb Hct MCV MCH MCHC RDW Plt Count MPV Immature Gran % (Auto) Neut % (Auto) Lymph % (Auto) [place] % (Auto) Eos % (Auto) Baso % (Auto) Lymph # (Auto) [place] # (Auto) Eos # (Auto) Baso # (Auto) Abs Immat Gran (auto) Absolute Neuts (auto) Absolute Nucleated RBC Nucleated RBC % (auto) Smear Tech's Comments PT INR APTT VBG pH 7.30 L VBG pCO2 53 VBG pO2 53 VBG HCO3 26 VBG O2 Saturation 82.0 VBG Base Excess -0.1 Sodium 143 Potassium 5.7 H Chloride 108 Carbon Dioxide 29 Anion Gap 12 BUN 77 H Creatinine 2.23 H Estim Creat Clear Calc 40.2 Estimated GFR 29 POC Glucose Random Glucose 169 H Lactic Acid Calcium 8.3 L Phosphorus Magnesium Total Bilirubin AST ALT Alkaline Phosphatase B-Natriuretic Peptide Total Protein Albumin 25-OH Vitamin D Total Procalcitonin TSH Urine Color Urine Appearance Urine pH Ur Specific [place] Urine Protein Urine Glucose (UA) Urine Ketones Urine Blood Urine Nitrite Ur Leukocyte Esterase Urine RBC Urine WBC Ur Squamous Epith Cells Ur Renal Epithelial Cell Uric Acid Crystals Amorphous Sediment Urine Bacteria Granular Casts Urine Mucus Ur Random Sodium Urine Creatinine Gastric Occult Blood Microbiology Microbiology Results: Microbiology 04/08/21 18:00 Sputum - Suctioned Gram Stain - Final 04/08/21 18:00 Sputum - Suctioned Sputum Culture - Preliminary Culture in progress. 03/28/21 11:32 Blood - Venous Blood Culture - Final No growth after 5 days. 03/28/21 11:22 Blood - Venous Blood Culture - Final No growth after 5 days. 04/02/21 08:12 Sputum - Expectorated Gram Stain - Final 04/02/21 08:12 Sputum - Expectorated Sputum Culture - Final Review of Systems Review of Systems Yes unobtainable due to endotracheal tube Physical Exam Vital Signs: Vital Signs: Last Vital Signs Temp 98.4 F 04/09/21 19:00 Pulse 100 04/09/21 22:00 Resp 26 H 04/09/21 22:00 BP 117/50 L 04/09/21 22:00 Pulse Ox 84 L 04/09/21 22:00 Body Mass Index 33.3 Const: General: other (sedated) Neck: Neck: Yes normal visual inspection, Yes full ROM and Yes no lymphadenopathy Chest: Chest palpation & inspection: normal inspection of the chest Resp: Auscultation: crackles, diminished lung sounds and bronchial breath sounds Cardio: Rate: regular rate Rhythm: regular rhythm Heart sounds: S1 normal heart sound present and S2 normal heart sound present GI: Palpation (GI): Soft to palpation and nontender Auscultation: normal bowel sounds Procedures Date of Service Date of Service: 04/09/21 Assessment and Plan Assessment and plan (1) Respiratory failure with hypoxia: Status: Acute (2) Acute pneumonitis: Status: Acute (3) Pneumonia: Status: Acute (4) Pulmonary fibrosis: Status: Acute (5) Interstitial lung disease due to connective tissue disease: Status: Acute Assessment and Plan: Respiratory failure likely due to UIP exacerbation/ARDS due to an initial infectious process. Worsening respiratory acidosis s/p intubation. Awaiting the effects of the Rituxan by next week. REC: mini BAL for PCP,fungal, gram stain and culture Holding antibiotics, agree with continue valcyclovir Once stable to travel please repeat CT chest Critical condition Time Spent With Patient Time: Total time spent is greater than 50% in coordination of care (as documented) at patient's floor/unit and/or counseling patient: Time with patient: 25 - 35 minutes Progress Note: Quality Stroke Does the patient have a stroke diagnosis?: No
[2021-04-09] MEDS: propofoL 1,000 MG/100 ML VIAL 19.51 MG IVCONT ×3 (11:34→21:07)
--- NOTE | 2021-04-09 12:25 | PM.CNNEP ---
History of Present Illness Reason for Consult Consult date: 04/09/21 Reason for consult: DAVIDSON Requesting physician: Myla Mantilla Chief Complaint Chief complaint: CAP/ild History of Present Illness Narrative: Mr. Casa Galaviz is a 70-year-old gentleman with past medical history of Rheumatoid arthritis, ILD with chronic hypoxic respiratory failure (2-4L O2), who presented to hospital with dyspnea and hypoxia. He required BiPAP in hospital and his lung function deteriorated rapidly. He required intubation for hypoxic respiratory failure. Along the way he received IV contrast for CT scan, IV Acyclovir, Bactrim, Valsartan, and is now displaying a Cr rise from 0.7mg/dL (04/06/2021) to 1.53mg/dL today. He has oliguria with high specific gravity, 75 RBCs, and a FeNa of 0.5%. He is hypotensive requiring Norepi. Aside from his infectious management of ILD, he was also begun on immunosuppression / anti-inflammation with 3-days of Solumedrol pulse and 1g of IV rituximab. His serologies in the past have been bland including negative ANCA, dsDNA, Cryo, but does have an elevated rhematoid Factor. Review of Systems Review of Systems Yes unobtainable due to endotracheal tube PMFSH Past Medical History Medical History Acute pneumonitis Chronic rhinitis Cough History of pulmonary embolism Interstitial lung disease due to connective tissue disease IPF (idiopathic pulmonary fibrosis) Pulmonary fibrosis Respiratory failure with hypoxia Rheumatoid arthritis Syncope Family History Family history: reviewed and not pertinent Social History Social History Household Members: Spouse Housing: House Patient Tobacco Use Status: Never used Tobacco Use of substances other than those prescribed or required for medical reasons: No Currently Displaying Signs/Symptoms of Drug Intoxication Withdrawal: No Have you been hit, kicked, punched, or otherwise hurt by someone within the past year? If so, by whom?: No Do you feel safe in your current relationship?: Yes Is there a partner from a previous relationship who is making you feel unsafe now?: No Are you made to feel afraid or neglected: No Advance Directives: No Advance Directives Information Provided: No Do you have thoughts of harming others: None Do you have a plan to hurt others: No Plan How much weight loss: 2-13 pounds Eating poorly because of decreased appetite: No Nutrition Risks: No Nutritional Risk service: No Current occupational status: retired Meds Allergies Allergy/AdvReac Type Severity Reaction Status Date / Time Bee Stings Allergy Mild Anaphylaxis Uncoded 08/27/20 08:57 Active Medications: Current Medications Generic Name Dose Route Start Last Admin Trade Name Freq PRN Reason Stop Dose Admin Apixaban 5 mg 03/28/21 21:00 04/09/21 07:48 Apixaban 5 Mg Tablet PO Not Given BID LATANYA Chlorhexidine Gluconate 15 ml 04/08/21 21:00 04/09/21 07:24 Chlorhexidine Gluc Oral Rinse 15 Ml Mouthwash BUCCAL 15 ml TID LATANYA Administration Propofol 1,000 mg in 100 mls @ 0 mls/hr 04/08/21 18:15 04/09/21 11:34 Diprivan IVCONT 30 mcg/kg/min .Q0M LATANYA 19.51 mls/hr Administration Protocol Per Protocol Fentanyl 1,000 mcg in 100 mls @ 0 mls/hr 04/08/21 19:45 04/09/21 08:49 Sublimaze/Ns IVCONT 150 mcg/hr .Q0M LATANYA 15 mls/hr Titration Protocol Per Protocol Norepinephrine Bitartrate 8 mg in 250 mls @ 0 mls/hr 04/08/21 20:45 04/09/21 11:34 Levophed IVCONT 0.5 mcg/kg/min .Q0M LATANYA 101.63 mls/hr Administration Protocol Per Protocol Sodium Chloride 1,000 mls @ 125 mls/hr 04/09/21 12:30 Ns IVCONT 04/10/21 06:00 .Q8H LATANYA Naloxone HCl 0.2 mg 04/08/21 19:45 Naloxone Hcl 0.4 Mg/Ml Vial IVPUSH Q2M PRN Excessive sedation or RR < 8 Patient Own 1 each 03/29/21 11:00 04/09/21 07:28 Medication ( PO Not Given Nintedanib [Ofev] BID LATANYA 150 Mg Capsule) Non-Form ( 1 each 04/08/21 21:00 04/08/21 20:19 Voriconazole 200 Mg PO 1 each Tablet) BID LATANYA Administration Pantoprazole Sodium 40 mg 04/09/21 08:00 04/09/21 08:26 Pantoprazole Sodium 40 Mg/10 Ml Vial IVPUSH 40 mg DAILY@0630 [facility] Administration Pharmacy Consult 1 each 03/28/21 10:55 Consult Rx Perform Med Rec MISCELLANE ONCE PRN Consult order Prednisone 10 mg 04/08/21 11:00 04/09/21 07:23 Prednisone 10 Mg Tablet PO 10 mg DAILY LATANYA Administration Sodium Chloride 3 ml 03/29/21 00:00 04/09/21 07:24 0.9 % Sodium Chloride Flush 3 Ml Syringe IVFLUSH 3 ml QSHIFT [facility] Administration Sodium Chloride 3 ml 04/09/21 00:00 04/09/21 07:24 0.9 % Sodium Chloride Flush 3 Ml Syringe IVFLUSH Not Given QSCOFT [facility] Trimethoprim/Sulfamethoxazole 2 tab 04/04/21 11:00 04/09/21 04:11 Sulfamethox/Trimeth 800/160 1 Tab Tablet PO 2 tab Q8H [facility] Administration Valacyclovir HCl 1,000 mg 04/09/21 08:00 04/09/21 08:23 Valacycyclovir Hcl 1,000 Mg Tablet PO Not Given Q12H [facility] Home Medications Medication Instructions Recorded Confirmed Last Taken Type allopurinol 100 mg tablet 100 mg PO DAILY 05/26/20 03/28/21 03/28/21 History amlodipine 10 mg tablet 10 mg PO DAILY 05/26/20 03/28/21 03/28/21 History olmesartan 40 mg tablet 40 mg PO DAILY 05/26/20 03/28/21 Unknown History prednisone 10 mg tablet 10 mg PO DAILY 05/26/20 03/28/21 03/28/21 History tadalafil 20 mg tablet 20 mg PO DAILY PRN 10/05/20 03/28/21 Unknown History epinephrine 0.3 mg/0.3 mL 0.3 mg IM ONCE PRN 01/20/21 03/28/21 Unknown History injection, auto-injector Physical Exam Vital Signs: Last Vital Signs Temp 98.3 F 04/09/21 12:00 Pulse 96 04/09/21 12:00 Resp 17 04/09/21 12:00 BP 107/48 L 04/09/21 12:00 Pulse Ox 88 L 04/09/21 12:00 Body Mass Index 33.3 Const Other: Itubated Sedated Chest Chest palpation & inspection: normal inspection of the chest Resp Auscultation: rhonchi Cardio Rhythm: regular rhythm Heart sounds: S1 normal heart sound present and S2 normal heart sound present GI Inspection: Yes normal to inspection and No distended Other: Bocanegra in place with concentrated urine Skin Other: No rashes or joint effusions Neuro Other: Sedated Results Lab Results Result Diagrams: 04/09/21 05:15 04/09/21 05:15 Lab results: Chemistry 04/07/21 04/08/21 04/09/21 05:13 05:23 05:15 Sodium 142 143 143 Potassium 5.0 5.1 5.2 H Carbon Dioxide 23 24 27 BUN 41 H 45 H 64 H Creatinine 0.94 1.07 1.53 H Calcium 8.5 8.5 8.1 L Phosphorus 4.0 4.4 6.4 H Hematology 04/07/21 04/08/21 04/09/21 05:13 05:23 05:15 WBC 19.8 H 25.3 H 27.1 H Hgb 13.1 L 13.5 L 11.9 L Plt Count 190 205 214 Urinalysis 04/09/21 08:34 Urine Color YELLOW Urine Appearance HAZY Urine pH 5.5 Ur Specific [place] >= 1.030 H Urine Protein 1+ H Urine Glucose (UA) NEG Urine Ketones NEG Urine Blood 3+ H Urine Nitrite NEG Ur Leukocyte Esterase NEG Urine RBC 50-75 H Urine WBC 1-4 Ur Squamous Epith Cells 1+ Urine Studies 04/09/21 08:39 Urine Creatinine 86.07 Assessment and Plan (1) Respiratory failure with hypoxia: Status: Acute (2) Acute pneumonitis: Status: Acute (3) Pulmonary fibrosis: Status: Acute (4) Interstitial lung disease due to connective tissue disease: Status: Acute (5) Rheumatoid arthritis: Qualifiers: Rheumatoid arthritis location: unspecified site Rheumatoid factor presence: with rheumatoid factor Qualified Code(s): M05.9 - Rheumatoid arthritis with rheumatoid factor, unspecified Status: Acute (6) IPF (idiopathic pulmonary fibrosis): Status: Acute (7) History of pulmonary embolism: Status: Acute (8) Acute kidney injury: Status: Acute (9) Hematuria: Status: Acute Mr. Galaviz has acute on chronic hypoxic respiratory failure from accelerated IPF. His course is now complicated by shock physiology on norepinephrine. He also has had a Creatinine rise starting around 04/06-04/07/21. Cr baseline is 0.75-0.9mg/dL. His Creatinine rise is in the setting of several nephrotoxins (Radiocontrast, IV Acyclvoir), hypoperfusive events (Valsartan dosed, Hypotension on Norepi, and Hypovolemia), and medications like Bactrim (which lead to suppression of Creatinie Secretion at the Proximal Convoluted Tubule, as well as Hyperkalemia). Differential: 1) U/A with 75RBCs (concerning for GN, however recent serologies negative including ANCA, dsDNA. It's possible for RA to predispose to an Immune complex GN. Pulm-renal syndrome less likely given no hemoptysis. I doubt Cryoglobulinemic GN given absence of neprhotic syndrome and risk factors. 2) Hemodiyamic DAVIDSON likely. 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 He has already been Pulsed with steroids and given Rituximab 1 dose which is good. But in truth I now doubt a GN - Strongly recommend IVF support 0.9% saline is fluid of choice. I will dose at 125cc/hr for about 1.5L. His Fena and Exam support hypovolemic DAVIDSON - If he fails fluid resuscitation, I would avoid lasix. If he fails fluid challenege then I expect his Cr to progress rapidly and be followed by oligo-anuria which will necessitate Dialysis when medically indicated. - please stop Bactrim, try another agent Atovaquone - renal panel daily - call me if any questions Procedures Date of Service Date of Service: 04/09/21
[2021-04-09] MEDS: 0.9 % Sodium Chloride 1,000 ML 125 ML IVCONT (12:30)
[2021-04-09 12:37] LABS: VBG Base Excess -6.3 mmol/L; VBG HCO3 22 mmol/L (22-26); VBG pCO2 58 mmHg; VBG pH 7.18 (7.32-7.43); VBG pO2 61 mmHg
[2021-04-09 12:39] LABS: Venous Blood Gas Refer to POC result
--- NOTE | 2021-04-09 12:49 | PC.NURSE ---
CRITICAL VBG PH 7.182 - COVERING MD NOTIFIED. ORDERED TO INCREASE VENT RATE TO 26, RT CALLED AND ADJUSTED VENT SETTINGS. MD TO ORDER VBG TO BE DRAWN IN 30 MINUTES. WILL CONTINUE TO MONITOR. PRIMARY RN NOTIFIED.
[2021-04-09 13:23] LABS: Anion Gap 12 (12-20); Blood Urea Nitrogen 57 mg/dL (9-16); Carbon Dioxide 20 mmol/L (22-29); Chloride 113 mmol/L (96-108); Creatinine Clr Calc Pharmacy 62.3; Estimated Glomerular Filt Rate 49; Glucose Random 142 mg/dL (60-115); Potassium 4.3 mmol/L (3.3-5.1); Sodium 141 mmol/L (135-145)
[2021-04-09 13:32] LABS: Venous Blood Gas Refer to POC result
[2021-04-09 13:32] LABS: VBG Base Excess -7.2 mmol/L; VBG HCO3 21 mmol/L (22-26); VBG pCO2 57 mmHg; VBG pH 7.17 (7.32-7.43); VBG pO2 70 mmHg
[2021-04-09] MEDS: Sodium Bicarbonate 8.4% 50 MEQ/50 ML VIAL IVPUSH (13:47)
[2021-04-09 14:06] LABS: Calcium 6.6 mg/dL (8.4-10.2)
[2021-04-09] MEDS: fentaNYL citrate/NS 1,000 MCG/100 ML PLAST..BAG 15 MCG IVCONT ×2 (14:09→21:07)
[2021-04-09] MEDS: Sodium Bicarbonate 8.4% 150 MEQ in Dextrose 5 % 850 ML 100 MEQ IV (14:27)
[2021-04-09 15:37] LABS: Venous Blood Gas Refer to POC result
[2021-04-09 15:38] LABS: VBG Base Excess 10.7 mmol/L; VBG HCO3 41 mmol/L (22-26); VBG pCO2 94 mmHg; VBG pH 7.24 (7.32-7.43); VBG pO2 64 mmHg
[2021-04-09 15:46] LABS: Lactic Acid 0.8 mmol/L (0.5-2.0)
[2021-04-09] MEDS: Hydrocortisone Sod Succ/PF 100 MG VIAL IVPUSH (15:47)
[2021-04-09] MEDS: Cholecalciferol (Vitamin D3) 25 MCG TABLET PO (15:47)
[2021-04-09] MEDS: Calcium Gluconate/NaCl,Iso-Osm 1 GM/50 ML PLAST..BAG IV (15:47)
[2021-04-09 16:02] LABS: Glucose, Whole Blood 180 mg/dL (60-115)
[2021-04-09 16:14] LABS: Vitamin D 25-OH Total 6.5 ng/mL (>30)
[2021-04-09 16:15] LABS: TSH reflex Free T4 0.49 uIU/mL (0.32-4.0)
[2021-04-09 16:19] LABS: Procalcitonin 0.26 ng/mL
--- NOTE | 2021-04-09 16:58 | P.PNCC_ITS ---
Subjective Subjective Date of Service: 04/09/21 Interval History: A 70-year-old with underlying severe rheumatoid arthritis 1st on mycophenolate than Xeljanz then off for 3 weeks and then given pulsed steroids 1 g a day for 3 days with with no result and then 1 g of rituximab 2 days earlier and he has developed rapidly progressive phase on of his interstitial lung disease of hypoxemic respiratory failure culminating a day ago in it intubation and saturation still marginal on an FiO2 of 100% bent the new development today is a gradual rise in creatinine consistent with an acute renal failure with hyperkalemia and urinalysis demonstrating red cells and proteinuria and could be consistent with a glomerular process and the fractional excretion of sodium being low confirms that possibility and CVP is were between 10 and 11 but in discussing with renal they felt that a trial of of fluids might be worthwhile and follow the BUN and creatinine and so we are delivering IV fluids also of note is that since intubation and actually starting just before while on BiPAP he his pCO2 was rising so clearly his alveolar ventilation was diminishing and he is he has a combined respiratory as well as metabolic acidosis which right now appears to be primarily hyperchloremic consistent with a renal tubular acidosis and so a sodium bicarb drip was started to counteract that and provide him with volume and I had asked if we sore a rise to 13 or above in the CVP that would be an indication that he would he might very well 3rd space in his lungs and to stop the fluid or slow it down All of his immunologic workup is is pending unfortunately but thus far we have no indication of antigen antibody complexes and so we wait Critical Care Time (minutes): 60 Physical Exam Vital Signs: Vital Signs: Last Vital Signs Temp 98.6 F 04/09/21 16:00 Pulse 87 04/09/21 16:35 Resp 26 H 04/09/21 16:33 BP 110/49 L 04/09/21 16:35 Pulse Ox 89 L 04/09/21 16:33 Body Mass Index 33.3 Sedated and intubated on assist control with 500 in 80 cc tidal volume to keep control of his peak airway pressures and and his driving pressure and with that there is a degree of hypercapnia and marginal oxygen saturations despite a peep of 10 and averaging in the mid to high 80% range Skin is intact no livedo no acrocyanosis He has coarse bilateral ventilatory sounds in his lungs Abdomen soft good bowel sounds no organomegaly Cardiac exam bedside echo demonstrating normal LV function Objective Data Labs CBC & Chem 7: 04/10/21 05:06 04/10/21 05:06 Labs: Laboratory Results - last 24 hr 04/05/21 04/08/21 04/09/21 08:48 23:58 05:15 WBC RBC Hgb Hct MCV MCH MCHC RDW Plt Count MPV Immature Gran % (Auto) Neut % (Auto) Lymph % (Auto) [place] % (Auto) Eos % (Auto) Baso % (Auto) Lymph # (Auto) [place] # (Auto) Eos # (Auto) Baso # (Auto) Abs Immat Gran (auto) Absolute Neuts (auto) Absolute Nucleated RBC Nucleated RBC % (auto) Smear Tech's Comments PT INR APTT VBG pH VBG pCO2 VBG pO2 VBG HCO3 VBG O2 Saturation VBG Base Excess Sodium Potassium Chloride Carbon Dioxide Anion Gap BUN Creatinine Estim Creat Clear Calc Estimated GFR POC Glucose Random Glucose Lactic Acid Calcium Phosphorus Magnesium Total Bilirubin AST ALT Alkaline Phosphatase B-Natriuretic Peptide 23 Total Protein Albumin 25-OH Vitamin D Total Procalcitonin TSH Urine Color Urine Appearance Urine pH Ur Specific [place] Urine Protein Urine Glucose (UA) Urine Ketones Urine Blood Urine Nitrite Ur Leukocyte Esterase Urine RBC Urine WBC Ur Squamous Epith Cells Ur Renal Epithelial Cell Uric Acid Crystals Amorphous Sediment Urine Bacteria Granular Casts Urine Mucus Ur Random Sodium Urine Creatinine Gastric Occult Blood POS TB Test (T-Spot) Com Negative TB Test Nil Control Passed TB Test Panel A 0 TB Test Panel B 0 TB Test Positive Cntrl Passed 04/09/21 04/09/21 04/09/21 05:15 05:15 05:15 WBC 27.1 H RBC 3.89 L Hgb 11.9 L Hct 39.0 L MCV 100.3 H MCH 30.6 MCHC 30.5 L RDW 14.8 Plt Count 214 MPV 9.7 Immature Gran % (Auto) 2.6 H Neut % (Auto) 92.5 H Lymph % (Auto) 1.4 L [place] % (Auto) 3.4 Eos % (Auto) 0.0 Baso % (Auto) 0.1 Lymph # (Auto) 0.4 L [place] # (Auto) 0.9 Eos # (Auto) 0.0 Baso # (Auto) 0.0 Abs Immat Gran (auto) 0.71 H Absolute Neuts (auto) 25.1 H Absolute Nucleated RBC 0.030 H Nucleated RBC % (auto) 0.1 Smear Tech's Comments VERIFIED PT 15.5 H INR 1.4 H APTT 26.9 VBG pH VBG pCO2 VBG pO2 VBG HCO3 VBG O2 Saturation VBG Base Excess Sodium 143 Potassium 5.2 H Chloride 108 Carbon Dioxide 27 Anion Gap 13 BUN 64 H Creatinine 1.53 H Estim Creat Clear Calc 58.7 Estimated GFR 45 POC Glucose Random Glucose 181 H D Lactic Acid Calcium 8.1 L Phosphorus 6.4 H Magnesium 3.0 H Total Bilirubin 0.3 AST 31 ALT 19 Alkaline Phosphatase 86 B-Natriuretic Peptide Total Protein 4.8 L Albumin 2.9 L 25-OH Vitamin D Total Procalcitonin TSH Urine Color Urine Appearance Urine pH Ur Specific [place] Urine Protein Urine Glucose (UA) Urine Ketones Urine Blood Urine Nitrite Ur Leukocyte Esterase Urine RBC Urine WBC Ur Squamous Epith Cells Ur Renal Epithelial Cell Uric Acid Crystals Amorphous Sediment Urine Bacteria Granular Casts Urine Mucus Ur Random Sodium Urine Creatinine Gastric Occult Blood TB Test (T-Spot) Com TB Test Nil Control TB Test Panel A TB Test Panel B [facility] 04/09[facility]21 04/09/21 04/09/21 05:18 08:34 08:39 WBC RBC Hgb Hct MCV MCH MCHC RDW Plt Count MPV Immature Gran % (Auto) Neut % (Auto) Lymph % (Auto) [place] % (Auto) Eos % (Auto) Baso % (Auto) Lymph # (Auto) [place] # (Auto) Eos # (Auto) Baso # (Auto) Abs Immat Gran (auto) Absolute Neuts (auto) Absolute Nucleated RBC Nucleated RBC % (auto) Smear Tech's Comments PT INR APTT VBG pH 7.21 L VBG pCO2 72 VBG pO2 64 VBG HCO3 29 H VBG O2 Saturation 84.0 VBG Base Excess -0.2 Sodium Potassium Chloride Carbon Dioxide Anion Gap BUN Creatinine Estim Creat Clear Calc Estimated GFR POC Glucose Random Glucose Lactic Acid Calcium Phosphorus Magnesium Total Bilirubin AST ALT Alkaline Phosphatase B-Natriuretic Peptide Total Protein Albumin 25-OH Vitamin D Total Procalcitonin TSH Urine Color YELLOW Urine Appearance HAZY Urine pH 5.5 Ur Specific [place] >= 1.030 H Urine Protein 1+ H Urine Glucose (UA) NEG Urine Ketones NEG Urine Blood 3+ H Urine Nitrite NEG Ur Leukocyte Esterase NEG Urine RBC 50-75 H Urine WBC 1-4 Ur Squamous Epith Cells 1+ Ur Renal Epithelial Cell 1+ Uric Acid Crystals TRACE Amorphous Sediment 2+ Urine Bacteria NONE Granular Casts 0-2 Urine Mucus 1+ Ur Random Sodium 38.0 Urine Creatinine 86.07 Gastric Occult Blood TB Test (T-Spot) Com TB Test Nil Control TB Test Panel A TB Test Panel B TB Test Positive [facility] 04/09/21 04/09/21 04/09/21 12:19 12:28 13:25 WBC RBC Hgb Hct MCV MCH MCHC RDW Plt Count MPV Immature Gran % (Auto) Neut % (Auto) Lymph % (Auto) [place] % (Auto) Eos % (Auto) Baso % (Auto) Lymph # (Auto) [place] # (Auto) Eos # (Auto) Baso # (Auto) Abs Immat Gran (auto) Absolute Neuts (auto) Absolute Nucleated RBC Nucleated RBC % (auto) Smear Tech's Comments PT INR APTT VBG pH 7.18 L* 7.17 L* VBG pCO2 58 57 VBG pO2 61 70 VBG HCO3 22 21 L VBG O2 Saturation 83.0 88.0 VBG Base Excess -6.3 -7.2 Sodium 141 Potassium 4.3 Chloride 113 H Carbon Dioxide 20 L Anion Gap 12 BUN 57 H Creatinine 1.44 H Estim Creat Clear Calc 62.3 Estimated GFR 49 POC Glucose Random Glucose 142 H Lactic Acid Calcium 6.6 L D Phosphorus Magnesium Total Bilirubin AST ALT Alkaline Phosphatase B-Natriuretic Peptide Total Protein Albumin 25-OH Vitamin D Total Procalcitonin TSH Urine Color Urine Appearance Urine pH Ur Specific [place] Urine Protein Urine Glucose (UA) Urine Ketones Urine Blood Urine Nitrite Ur Leukocyte Esterase Urine RBC Urine WBC Ur Squamous Epith Cells Ur Renal Epithelial Cell Uric Acid Crystals Amorphous Sediment Urine Bacteria Granular Casts Urine Mucus Ur Random Sodium Urine Creatinine Gastric Occult Blood TB Test (T-Spot) Com TB Test Nil Control TB Test Panel A TB Test Panel B TB Test Positive [facility] 04/09/21 04/09/21 04/09/21 15:25 15:26 15:26 WBC RBC Hgb Hct MCV MCH MCHC RDW Plt Count MPV Immature Gran % (Auto) Neut % (Auto) Lymph % (Auto) [place] % (Auto) Eos % (Auto) Baso % (Auto) Lymph # (Auto) [place] # (Auto) Eos # (Auto) Baso # (Auto) Abs Immat Gran (auto) Absolute Neuts (auto) Absolute Nucleated RBC Nucleated RBC % (auto) Smear Tech's Comments PT INR APTT VBG pH VBG pCO2 VBG pO2 VBG HCO3 VBG O2 Saturation VBG Base Excess Sodium Potassium Chloride Carbon Dioxide Anion Gap BUN Creatinine Estim Creat Clear Calc Estimated GFR POC Glucose Random Glucose Lactic Acid 0.8 Calcium Phosphorus Magnesium Total Bilirubin AST ALT Alkaline Phosphatase B-Natriuretic Peptide Total Protein Albumin 25-OH Vitamin D Total 6.5 Procalcitonin TSH 0.49 Urine Color Urine Appearance Urine pH Ur Specific [place] Urine Protein Urine Glucose (UA) Urine Ketones Urine Blood Urine Nitrite Ur Leukocyte Esterase Urine RBC Urine WBC Ur Squamous Epith Cells Ur Renal Epithelial Cell Uric Acid Crystals Amorphous Sediment Urine Bacteria Granular Casts Urine Mucus Ur Random Sodium Urine Creatinine Gastric Occult Blood TB Test (T-Spot) Com TB Test Nil Control TB Test Panel A TB Test Panel B TB Test Positive [facility] 04/09/21 04/09/21 04/09/21 15:26 15:32 15:59 WBC RBC Hgb Hct MCV MCH MCHC RDW Plt Count MPV Immature Gran % (Auto) Neut % (Auto) Lymph % (Auto) [place] % (Auto) Eos % (Auto) Baso % (Auto) Lymph # (Auto) [place] # (Auto) Eos # (Auto) Baso # (Auto) Abs Immat Gran (auto) Absolute Neuts (auto) Absolute Nucleated RBC Nucleated RBC % (auto) Smear Tech's Comments PT INR APTT VBG pH 7.24 L VBG pCO2 94 VBG pO2 64 VBG HCO3 41 H VBG O2 Saturation 87.0 VBG Base Excess 10.7 Sodium Potassium Chloride Carbon Dioxide Anion Gap BUN Creatinine Estim Creat Clear Calc Estimated GFR POC Glucose 180 H Random Glucose Lactic Acid Calcium Phosphorus Magnesium Total Bilirubin AST ALT Alkaline Phosphatase B-Natriuretic Peptide Total Protein Albumin 25-OH Vitamin D Total Procalcitonin 0.26 TSH Urine Color Urine Appearance Urine pH Ur Specific [place] Urine Protein Urine Glucose (UA) Urine Ketones Urine Blood Urine Nitrite Ur Leukocyte Esterase Urine RBC Urine WBC Ur Squamous Epith Cells Ur Renal Epithelial Cell Uric Acid Crystals Amorphous Sediment Urine Bacteria Granular Casts Urine Mucus Ur Random Sodium Urine Creatinine Gastric Occult Blood TB Test (T-Spot) Com TB Test Nil Control TB Test Panel A TB Test Panel B TB Test Positive [facility] Microbiology Microbiology Results: Microbiology 04/08/21 18:00 Sputum - Suctioned Gram Stain - Final 04/08/21 18:00 Sputum - Suctioned Sputum Culture - Preliminary Culture in progress. 03/28/21 11:32 Blood - Venous Blood Culture - Final No growth after 5 days. 03/28/21 11:22 Blood - Venous Blood Culture - Final No growth after 5 days. 04/02/21 08:12 Sputum - Expectorated Gram Stain - Final 04/02/21 08:12 Sputum - Expectorated Sputum Culture - Final Quality Stroke Does the patient have a stroke diagnosis?: No VTE Prior VTE?: No VTE Risk Level:: Medical - moderate - high VTE Device Contraindication: Treatment Not Indicated VTE Drug Contraindication: N/A - Med Ordered Progress Note: A&P Assessment and plan (1) Hematuria: Status: Acute (2) Acute kidney injury: Status: Acute (3) ARDS (adult respiratory distress syndrome): Status: Acute (4) Respiratory failure with hypoxia: Status: Acute (5) Acute pneumonitis: Status: Acute (6) Syncope: Status: Acute (7) Pulmonary fibrosis: Status: Acute (8) Interstitial lung disease due to connective tissue disease: Status: Acute (9) Rheumatoid arthritis: Status: Acute (10) IPF (idiopathic pulmonary fibrosis): Status: Acute (11) History of pulmonary embolism: Status: Acute (12) Hyperkalemia: Status: Acute (13) Renal tubular acidosis: Status: Acute Assessment and Plan: With this combination of issues I will discuss with the Pulmonary and Rheum atology whether not there might be any placed for plasmapheresis as we follow his renal function and will whether not he developed progressive oliguria and that might lead us in O2 dialysis catheter and with we continue our surveillance for infection but anticoagulant had to be stopped because of some bloody secretions that we was suctioning
[2021-04-09 17:29] LABS: Sodium 143 mmol/L (135-145)
[2021-04-09 17:31] LABS: Anion Gap 13 (12-20); Blood Urea Nitrogen 75 mg/dL (9-16); Calcium 8.4 mg/dL (8.4-10.2); Carbon Dioxide 28 mmol/L (22-29); Chloride 108 mmol/L (96-108); Creatinine Clr Calc Pharmacy 41.7; Estimated Glomerular Filt Rate 31; Glucose Random 192 mg/dL (60-115)
[2021-04-09] MEDS: Apixaban 5 MG TABLET PO (19:44)
[2021-04-09] MEDS: Albumin Human 25 % 100 ML IV ×2 (21:51→21:52)
[2021-04-09] MEDS: Furosemide 20 MG/2 ML VIAL IVPUSH (21:52)
[2021-04-09 22:19] LABS: VBG Base Excess -0.1 mmol/L; VBG HCO3 26 mmol/L (22-26); VBG pCO2 53 mmHg; VBG pO2 53 mmHg
[2021-04-09 22:29] LABS: Anion Gap 12 (12-20); Blood Urea Nitrogen 77 mg/dL (9-16); Calcium 8.3 mg/dL (8.4-10.2); Carbon Dioxide 29 mmol/L (22-29); Chloride 108 mmol/L (96-108); Creatinine Clr Calc Pharmacy 40.2; Estimated Glomerular Filt Rate 29; Glucose Random 169 mg/dL (60-115); Potassium 5.7 mmol/L (3.3-5.1); Sodium 143 mmol/L (135-145)
[2021-04-09] MEDS: Albuterol/Iprat 2.5/0.5MG 3 ML AMPUL.NEB INHALE (22:58)
[2021-04-09 23:36] LABS: Venous Blood Gas Refer to POC result
[2021-04-10] VITALS (31 sets, daily range): BP systolic 110–129; BP diastolic 48–65; PULSE 89–102; RESP 16–30; TEMP 36.7–37.7; O2SAT 78–97
[2021-04-10] MEDS: 0.9 % Sodium Chloride Flush 3 ML SYRINGE IVFLUSH ×3 (00:02→17:04)
[2021-04-10] MEDS: Sodium Bicarbonate 8.4% 150 MEQ in Dextrose 5 % 850 ML 100 MEQ IV (00:02)
[2021-04-10] MEDS: Furosemide 20 MG/2 ML VIAL IVPUSH (01:32)
[2021-04-10] MEDS: propofoL 1,000 MG/100 ML VIAL 32.52 MG IVCONT ×2 (01:53→04:43)
[2021-04-10] MEDS: Hydrocortisone Sod Succ/PF 100 MG VIAL IVPUSH ×2 (01:54→14:46)
[2021-04-10] MEDS: Furosemide 100 MG/10 ML VIAL 80 MG IVPUSH (02:26)
--- NOTE | 2021-04-10 02:58 | PC.NURSE ---
Patient desats with any movement, including minimal repositioning. Sats trending down over course of night. Down to 60's at times. Requiring manual ventilation via ambubag on numerous attempts. Vent settings changed multiple times. IVP lasix, albumin, updrafts. STAT CXR. PA and RT at bedside throughout shift. Suctioning large amounts of bright red blood inline. HME filter soaked in blood, changed out. Eliquis on hold. Pacer pads in place. PA aware of instability, does not want pt repositioned unless absolutely necessary.
--- NOTE | 2021-04-10 02:59 | P.PNCC_ITS ---
Critical Care Event Note Summary Date of Service: 04/10/21 Code activated: No Narrative: This case had a high probability of a clinically significant, sudden, or life threatening deterioration of this patient's condition which required my full and direct attention, intervention and personal management. Critical Care Time (minutes): 90 Comment: Patient became hypoxic in to the 60s while being turned by nursing, blood coming from the ETT tube, filled the HME, pt became tachy in the 110's. Suctioned inline, changed HME, bagged pt for 20 minutes before being able to transition back to the ventilator without him becoming hypoxemic. Gave 20mg IV lasix, this was his 2nd dose this evening, pt rec'd first dose 3 hours earlier and had approx 1L UO. STAT CXR showed pulmonary edema. CVP reading 17 after being 7-[address] Plasencia, he recommended 80mg lasix and call Nephrology. Spoke with Dr. Aguilar, Nephro, he recommended continuing with Lasix and possibly a drip as the patient did respond well to it. Touch base in the morning if Cr/K/fluid status continue to rise regarding dialysis. Called [facility] ECMO on the go and faxed form with pt info for review, they stated they are full but they will review the form and call us with recommendations. Dr Plasencia spoke with [facility] [place], they have no available beds and do not believe the patient is candidate for ECMO, they recommended to keep doing what we are doing and had no further recommendations. Communicated this to the family, specifically the patient's son Oscar. Pt VSS, O2 sat is high 80's.
[2021-04-10] MEDS: Furosemide 200 MG in 0.9 % Sodium Chloride 80 ML IVCONT (04:11)
[2021-04-10] MEDS: fentaNYL citrate/NS 1,000 MCG/100 ML PLAST..BAG 20 MCG IVCONT (04:12)
[2021-04-10 05:15] LABS: Venous Blood Gas Refer to POC result
[2021-04-10 05:16] LABS: VBG Base Excess 3.9 mmol/L; VBG HCO3 33 mmol/L (22-26); VBG pCO2 76 mmHg; VBG pH 7.24 (7.32-7.43); VBG pO2 70 mmHg
[2021-04-10 05:43] LABS: Basophils Percent Auto 0.1 % (0-2); Hemoglobin 11.2 g/dl (14.0-18.0); Imm Gran Pct Auto 3.1 % (0.0-0.4); Lymphocytes Absolute Auto 0.3 X10*3/uL (1.2-4.9); Lymphocytes Percent Auto 1.2 % (20-40); MANUAL DIFF FLAG SCAN; Mean Corpuscular HGB Conc 30.3 g/dl (31.0-36.0); Mean Corpuscular Hemoglobin 30.6 pg (27.0-33.0); Mean Corpuscular Volume 101.1 fL (80-98); Mean Platelet Volume 9.9 fL (9.4-12.4); Monocytes Absolute Auto 0.9 X10*3/uL (0.1-1.2); Monocytes Percent Auto 3.3 % (2-11); NRBC Pct Auto 0.1 /100WBC (0.0-0.2); Neutrophils Percent Auto 92.3 % (45-73); Platelet Count 169 X10*3/uL (160-400); Red Blood Count 3.66 X10*6/uL (4.60-5.80); Red Cell Distribution Width 14.7 % (11.0-16.0); SCAN SMEAR FLAG 1
[2021-04-10 05:49] LABS: INTERNATIONAL NORM RATIO 1.3 (0.9-1.1); Prothrombin Time 14.7 SEC (9.9-13.0)
[2021-04-10] MEDS: Pantoprazole Sodium 40 MG/10 ML VIAL IVPUSH (05:49)
[2021-04-10 05:52] LABS: Partial Thromboplastin Time 25.6 SEC (24.1-38.0)
[2021-04-10 05:57] LABS: Alanine Aminotransferase 18 U/L (0-40); Albumin Level 3.2 g/dL (3.5-5.0); Alkaline Phosphatase 113 U/L (39-117); Anion Gap 16 (12-20); Aspartate Amino Transferase 33 U/L (5-37); Bilirubin Total 0.4 mg/dL (0.0-1.0); Blood Urea Nitrogen 75 mg/dL (9-16); Calcium 8.4 mg/dL (8.4-10.2); Carbon Dioxide 29 mmol/L (22-29); Chloride 107 mmol/L (96-108); Creatinine Clr Calc Pharmacy 39.5; Estimated Glomerular Filt Rate 29; Glucose Random 124 mg/dL (60-115); Magnesium 2.9 mg/dL (1.6-2.6); Potassium 5.6 mmol/L (3.3-5.1); Sodium 146 mmol/L (135-145); Total Protein 5.1 g/dL (6.5-8.0)
[2021-04-10 06:15] LABS: SLIDE REVIEW VERIFIED
[2021-04-10] MEDS: Cholecalciferol (Vitamin D3) 25 MCG TABLET PO (07:18)
[2021-04-10] MEDS: Chlorhexidine Gluc Oral Rinse 15 ML MOUTHWASH BUCCAL ×3 (07:18→19:47)
[2021-04-10] MEDS: propofoL 1,000 MG/100 ML VIAL 19.51 MG IVCONT ×3 (07:27→17:13)
[2021-04-10] MEDS: fentaNYL citrate/NS 1,000 MCG/100 ML PLAST..BAG 15 MCG IVCONT ×2 (09:51→17:00)
--- NOTE | 2021-04-10 14:52 | PM.CCPN ---
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 from the rather aggressive IV fluid infusion with a notable rise in his CVP initially thought to have been 7-8 and in re-establishing baseline in 0 it was 16 in actuality currently on a Lasix drip and with excellent response now pouring out in excess of 2 L with reduction of CVP to 9 and a marked improvement in the acute severe hypoxemia that required him to be bagged off the ventilator machine currently 97% oxygen saturation However sodium marie to 146 potassium still elevated at 5.6 and blood gas demonstrating a pure acute respiratory acidosis requiring some adjustment in his delivered volume I had extensive discussions and 3 institutions with the ECMO Team as well as with the on-call pulmonary financial operations consultant and there was or independent flea arrive that consensus that this held a very grave prognosis without any additional offering including plasmapheresis and he was denied ECMO and felt the by all to be and a possible candidate for transplant Critical Care Time (minutes): 60 Physical Exam Vital Signs: Vital Signs: Last Vital Signs Temp 98.8 F 04/10/21 12:00 Pulse 97 04/10/21 14:00 Resp 26 H 04/10/21 14:00 BP 115/55 L 04/10/21 14:00 Pulse Ox 97 04/10/21 14:00 Body Mass Index 30.0 Sedated intubated and now breathing with much more calm respiratory rate still in the high 20s blood pressure still hovering at 100/50 but a mean of 66 av but oxygen saturations are compensated heart rate 93 in sinus rhythm Course ventilatory sounds Bedside echo with preserved LV function Skin intact Abdomen benign and accepting fluid Objective Data Labs CBC & Chem 7: 04/10/21 05:06 04/10/21 05:06 Labs: Laboratory Results - last 24 hr 04/09/21 04/09/21 04/09/21 15:25 15:26 15:26 WBC RBC Hgb Hct MCV MCH MCHC RDW Plt Count MPV Immature Gran % (Auto) Neut % (Auto) Lymph % (Auto) [place] % (Auto) Eos % (Auto) Baso % (Auto) Lymph # (Auto) [place] # (Auto) Eos # (Auto) Baso # (Auto) Abs Immat Gran (auto) Absolute Neuts (auto) Absolute Nucleated RBC Nucleated RBC % (auto) Smear Tech's Comments PT INR APTT VBG pH VBG pCO2 VBG pO2 VBG HCO3 VBG O2 Saturation VBG Base Excess Sodium 143 Potassium 6.0 H* D Chloride 108 Carbon Dioxide 28 Anion Gap 13 BUN 75 H Creatinine 2.15 H Estim Creat Clear Calc 41.7 Estimated GFR 31 POC Glucose Random Glucose 192 H D Lactic Acid 0.8 Calcium 8.4 D Phosphorus Magnesium Total Bilirubin AST ALT Alkaline Phosphatase Total Protein Albumin 25-OH Vitamin D Total 6.5 Procalcitonin TSH 04/09/21 04/09/21 04/09/21 15:26 15:26 15:32 WBC RBC Hgb Hct MCV MCH MCHC RDW Plt Count MPV Immature Gran % (Auto) Neut % (Auto) Lymph % (Auto) [place] % (Auto) Eos % (Auto) Baso % (Auto) Lymph # (Auto) [place] # (Auto) Eos # (Auto) Baso # (Auto) Abs Immat Gran (auto) Absolute Neuts (auto) Absolute Nucleated RBC Nucleated RBC % (auto) Smear Tech's Comments PT INR APTT VBG pH 7.24 L VBG pCO2 94 VBG pO2 64 VBG HCO3 41 H VBG O2 Saturation 87.0 VBG Base Excess 10.7 Sodium Potassium Chloride Carbon Dioxide Anion Gap BUN Creatinine Estim Creat Clear Calc Estimated GFR POC Glucose Random Glucose Lactic Acid Calcium Phosphorus Magnesium Total Bilirubin AST ALT Alkaline Phosphatase Total Protein Albumin 25-OH Vitamin D Total Procalcitonin 0.26 TSH 0.49 04/09/21 04/09/21 04/09/21 15:59 22:11 22:13 WBC RBC Hgb Hct MCV MCH MCHC RDW Plt Count MPV Immature Gran % (Auto) Neut % (Auto) Lymph % (Auto) [place] % (Auto) Eos % (Auto) Baso % (Auto) Lymph # (Auto) [place] # (Auto) Eos # (Auto) Baso # (Auto) Abs Immat Gran (auto) Absolute Neuts (auto) Absolute Nucleated RBC Nucleated RBC % (auto) Smear Tech's Comments PT INR APTT VBG pH 7.30 L VBG pCO2 53 VBG pO2 53 VBG HCO3 26 VBG O2 Saturation 82.0 VBG Base Excess -0.1 Sodium 143 Potassium 5.7 H Chloride 108 Carbon Dioxide 29 Anion Gap 12 BUN 77 H Creatinine 2.23 H Estim Creat Clear Calc 40.2 Estimated GFR 29 POC Glucose 180 H Random Glucose 169 H Lactic Acid Calcium 8.3 L Phosphorus Magnesium Total Bilirubin AST ALT Alkaline Phosphatase Total Protein Albumin 25-OH Vitamin D Total Procalcitonin TSH 04/10/21 04/10/21 04/10/21 05:06 05:06 05:06 WBC 26.0 H RBC 3.66 L Hgb 11.2 L Hct 37.0 L MCV 101.1 H MCH 30.6 MCHC 30.3 L RDW 14.7 Plt Count 169 MPV 9.9 Immature Gran % (Auto) 3.1 H Neut % (Auto) 92.3 H Lymph % (Auto) 1.2 L [place] % (Auto) 3.3 Eos % (Auto) 0.0 Baso % (Auto) 0.1 Lymph # (Auto) 0.3 L [place] # (Auto) 0.9 Eos # (Auto) 0.0 Baso # (Auto) 0.0 Abs Immat Gran (auto) 0.80 H Absolute Neuts (auto) 24.0 H Absolute Nucleated RBC 0.030 H Nucleated RBC % (auto) 0.1 Smear Tech's Comments VERIFIED PT 14.7 H INR 1.3 H APTT 25.6 VBG pH VBG pCO2 VBG pO2 VBG HCO3 VBG O2 Saturation VBG Base Excess Sodium 146 H Potassium 5.6 H Chloride 107 Carbon Dioxide 29 Anion Gap 16 BUN 75 H Creatinine 2.27 H Estim Creat Clear Calc 39.5 Estimated GFR 29 POC Glucose Random Glucose 124 H Lactic Acid Calcium 8.4 Phosphorus 6.0 H Magnesium 2.9 H Total Bilirubin 0.4 AST 33 ALT 18 Alkaline Phosphatase 113 D Total Protein 5.1 L Albumin 3.2 L 25-OH Vitamin D Total Procalcitonin TSH 04/10/21 05:11 WBC RBC Hgb Hct MCV MCH MCHC RDW Plt Count MPV Immature Gran % (Auto) Neut % (Auto) Lymph % (Auto) [place] % (Auto) Eos % (Auto) Baso % (Auto) Lymph # (Auto) [place] # (Auto) Eos # (Auto) Baso # (Auto) Abs Immat Gran (auto) Absolute Neuts (auto) Absolute Nucleated RBC Nucleated RBC % (auto) Smear Tech's Comments PT INR APTT VBG pH 7.24 L VBG pCO2 76 VBG pO2 70 VBG HCO3 33 H VBG O2 Saturation 90.0 VBG Base Excess 3.9 Sodium Potassium Chloride Carbon Dioxide Anion Gap BUN Creatinine Estim Creat Clear Calc Estimated GFR POC Glucose Random Glucose Lactic Acid Calcium Phosphorus Magnesium Total Bilirubin AST ALT Alkaline Phosphatase Total Protein Albumin 25-OH Vitamin D Total Procalcitonin TSH Microbiology Microbiology Results: Microbiology 04/08/21 18:00 Sputum - Suctioned Gram Stain - Final 04/08/21 18:00 Sputum - Suctioned Sputum Culture - Final 03/28/21 11:32 Blood - Venous Blood Culture - Final No growth after 5 days. 03/28/21 11:22 Blood - Venous Blood Culture - Final No growth after 5 days. 04/02/21 08:12 Sputum - Expectorated Gram Stain - Final 04/02/21 08:12 Sputum - Expectorated Sputum Culture - Final Quality Stroke Does the patient have a stroke diagnosis?: No VTE Prior VTE?: No VTE Risk Level:: Medical - moderate - high VTE Device Contraindication: Treatment Not Indicated VTE Drug Contraindication: N/A - Med Ordered Progress Note: A&P Assessment and plan (1) Renal tubular acidosis: Status: Acute (2) Hyperkalemia: Status: Acute (3) Hematuria: Status: Acute (4) Acute kidney injury: Status: Acute (5) ARDS (adult respiratory distress syndrome): Status: Acute (6) Respiratory failure with hypoxia: Status: Acute (7) Acute pneumonitis: Status: Acute (8) Syncope: Status: Acute (9) Pulmonary fibrosis: Status: Acute (10) Interstitial lung disease due to connective tissue disease: Status: Acute (11) Chronic rhinitis: Status: Acute (12) Cough: Status: Acute (13) Rheumatoid arthritis: Status: Acute (14) IPF (idiopathic pulmonary fibrosis): Status: Acute (15) History of pulmonary embolism: Status: Acute Assessment and Plan: I have had extensive discussion with his and we did agree on DNR status and I explained that the everything that could be done is being done and we will still take it a day at a time maintaining him to see if rituximab might yield a benefit in the interim continue the Lasix drip in re-evaluate electrolytes see if the sodium continues to climb a we might have to add more free water
--- NOTE | 2021-04-10 15:47 | PM.PNNEP ---
Subjective Subjective Date of Service: 04/10/21 Principal diagnosis: ILD/ RESP.FAILURE Interval history: Trialed IVF yesterday, but developed worsening pulmonary function. Responded to diuretics. UOP improved dramatically as well. Cr stable mostly unchanged. Serologies reviewed, no evidence of GN. Anti-GBM pending still. Lasix 10mg/hr Physical Exam Vital Signs: Vital Signs: Last Vital Signs Temp 98.8 F 04/10/21 12:00 Pulse 92 04/10/21 15:00 Resp 27 H 04/10/21 15:00 BP 114/56 L 04/10/21 15:00 Pulse Ox 95 04/10/21 15:00 Body Mass Index 30.0 Const: Other: Itubated Sedated Chest: Chest palpation & inspection: normal inspection of the chest Resp: Auscultation: rhonchi Cardio: Rhythm: regular rhythm Heart sounds: S1 normal heart sound present and S2 normal heart sound present GI: Inspection: Yes normal to inspection and No distended : Other: Bocanegra in place with concentrated urine Skin: Other: No rashes or joint effusions Neuro: Other: Sedated Objective Data Labs CBC & Chem 7: 04/10/21 05:06 04/10/21 05:06 Labs: Laboratory Results - last 24 hr 04/09/21 04/09/21 04/09/21 15:26 15:26 15:26 WBC RBC Hgb Hct MCV MCH MCHC RDW Plt Count MPV Immature Gran % (Auto) Neut % (Auto) Lymph % (Auto) [place] % (Auto) Eos % (Auto) Baso % (Auto) Lymph # (Auto) [place] # (Auto) Eos # (Auto) Baso # (Auto) Abs Immat Gran (auto) Absolute Neuts (auto) Absolute Nucleated RBC Nucleated RBC % (auto) Smear Tech's Comments PT INR APTT VBG pH VBG pCO2 VBG pO2 VBG HCO3 VBG O2 Saturation VBG Base Excess Sodium 143 Potassium 6.0 H* D Chloride 108 Carbon Dioxide 28 Anion Gap 13 BUN 75 H Creatinine 2.15 H Estim Creat Clear Calc 41.7 Estimated GFR 31 POC Glucose Random Glucose 192 H D Calcium 8.4 D Phosphorus Magnesium Total Bilirubin AST ALT Alkaline Phosphatase Total Protein Albumin 25-OH Vitamin D Total 6.5 Procalcitonin TSH 0.49 04/09/21 04/09/21 04/09/21 15:26 15:59 22:11 WBC RBC Hgb Hct MCV MCH MCHC RDW Plt Count MPV Immature Gran % (Auto) Neut % (Auto) Lymph % (Auto) [place] % (Auto) Eos % (Auto) Baso % (Auto) Lymph # (Auto) [place] # (Auto) Eos # (Auto) Baso # (Auto) Abs Immat Gran (auto) Absolute Neuts (auto) Absolute Nucleated RBC Nucleated RBC % (auto) Smear Tech's Comments PT INR APTT VBG pH VBG pCO2 VBG pO2 VBG HCO3 VBG O2 Saturation VBG Base Excess Sodium 143 Potassium 5.7 H Chloride 108 Carbon Dioxide 29 Anion Gap 12 BUN 77 H Creatinine 2.23 H Estim Creat Clear Calc 40.2 Estimated GFR 29 POC Glucose 180 H Random Glucose 169 H Calcium 8.3 L Phosphorus Magnesium Total Bilirubin AST ALT Alkaline Phosphatase Total Protein Albumin 25-OH Vitamin D Total Procalcitonin 0.26 TSH 04/09/21 04/10/21 04/10/21 22:13 05:06 05:06 WBC 26.0 H RBC 3.66 L Hgb 11.2 L Hct 37.0 L MCV 101.1 H MCH 30.6 MCHC 30.3 L RDW 14.7 Plt Count 169 MPV 9.9 Immature Gran % (Auto) 3.1 H Neut % (Auto) 92.3 H Lymph % (Auto) 1.2 L [place] % (Auto) 3.3 Eos % (Auto) 0.0 Baso % (Auto) 0.1 Lymph # (Auto) 0.3 L [place] # (Auto) 0.9 Eos # (Auto) 0.0 Baso # (Auto) 0.0 Abs Immat Gran (auto) 0.80 H Absolute Neuts (auto) 24.0 H Absolute Nucleated RBC 0.030 H Nucleated RBC % (auto) 0.1 Smear Tech's Comments VERIFIED PT 14.7 H INR 1.3 H APTT 25.6 VBG pH 7.30 L VBG pCO2 53 VBG pO2 53 VBG HCO3 26 VBG O2 Saturation 82.0 VBG Base Excess -0.1 Sodium Potassium Chloride Carbon Dioxide Anion Gap BUN Creatinine Estim Creat Clear Calc Estimated GFR POC Glucose Random Glucose Calcium Phosphorus Magnesium Total Bilirubin AST ALT Alkaline Phosphatase Total Protein Albumin 25-OH Vitamin D Total Procalcitonin TSH 04/10/21 04/10/21 05:06 05:11 WBC RBC Hgb Hct MCV MCH MCHC RDW Plt Count MPV Immature Gran % (Auto) Neut % (Auto) Lymph % (Auto) [place] % (Auto) Eos % (Auto) Baso % (Auto) Lymph # (Auto) [place] # (Auto) Eos # (Auto) Baso # (Auto) Abs Immat Gran (auto) Absolute Neuts (auto) Absolute Nucleated RBC Nucleated RBC % (auto) Smear Tech's Comments PT INR APTT VBG pH 7.24 L VBG pCO2 76 VBG pO2 70 VBG HCO3 33 H VBG O2 Saturation 90.0 VBG Base Excess 3.9 Sodium 146 H Potassium 5.6 H Chloride 107 Carbon Dioxide 29 Anion Gap 16 BUN 75 H Creatinine 2.27 H Estim Creat Clear Calc 39.5 Estimated GFR 29 POC Glucose Random Glucose 124 H Calcium 8.4 Phosphorus 6.0 H Magnesium 2.9 H Total Bilirubin 0.4 AST 33 ALT 18 Alkaline Phosphatase 113 D Total Protein 5.1 L Albumin 3.2 L 25-OH Vitamin D Total Procalcitonin TSH Microbiology Microbiology Results: Microbiology 04/08/21 18:00 Sputum - Suctioned Gram Stain - Final 04/08/21 18:00 Sputum - Suctioned Sputum Culture - Final 03/28/21 11:32 Blood - Venous Blood Culture - Final No growth after 5 days. 03/28/21 11:22 Blood - Venous Blood Culture - Final No growth after 5 days. 04/02/21 08:12 Sputum - Expectorated Gram Stain - Final 04/02/21 08:12 Sputum - Expectorated Sputum Culture - Final Procedures Date of Service Date of Service: 04/10/21 Assessment & Plan Assessment and plan (1) Respiratory failure with hypoxia: Status: Acute (2) Acute pneumonitis: Status: Acute (3) Pulmonary fibrosis: Status: Acute (4) Interstitial lung disease due to connective tissue disease: Status: Acute (5) Rheumatoid arthritis: Status: Acute (6) IPF (idiopathic pulmonary fibrosis): Status: Acute (7) History of pulmonary embolism: Status: Acute (8) Acute kidney injury: Status: Acute (9) Hematuria: Status: Acute Assessment and Plan: Mr. Galaviz has acute on chronic hypoxic respiratory failure from accelerated IPF. His course is now complicated by shock physiology on norepinephrine. He also has had a Creatinine rise starting around 04/06-04/07/21. Cr baseline is 0.75-0.9mg/dL. His Creatinine rise is in the setting of several nephrotoxins (Radiocontrast, IV Acyclvoir), hypoperfusive events (Valsartan dosed, Hypotension on Norepi, and hypervolemia), and medications like Bactrim (which lead to suppression of Creatinie Secretion at the Proximal Convoluted Tubule, as well as Hyperkalemia). Differential: 1) U/A with 75RBCs (concerning for GN, however recent serologies negative including ANCA, dsDNA. It's possible for RA to predispose to an Immune complex GN. Pulm-renal syndrome less likely given no hemoptysis. I doubt Cryoglobulinemic GN given absence of neprhotic syndrome and risk factors. 2) Hemodiyamic DAVIDSON likely. 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 He has already been Pulsed with steroids and given Rituximab 1 dose which is good. But in truth I now doubt a GN - Continue Lasix 10mg/hr - please stop Bactrim, try another agent Atovaquone - renal panel daily, including mag phos iCa as we are diuresing. - call me if any questions Time Spent With Patient Time: Total time spent is greater than 50% in coordination of care (as documented) at patient's floor/unit and/or counseling patient: Progress Note: Quality Stroke Does the patient have a stroke diagnosis?: No
[2021-04-10 18:19] LABS: Venous Blood Gas Refer to POC result
[2021-04-10 18:20] LABS: VBG Base Excess 1.1 mmol/L; VBG HCO3 28 mmol/L (22-26); VBG pCO2 56 mmHg; VBG pO2 75 mmHg
[2021-04-10 18:40] LABS: Anion Gap 12 (12-20); Blood Urea Nitrogen 71 mg/dL (9-16); Calcium 7.4 mg/dL (8.4-10.2); Carbon Dioxide 28 mmol/L (22-29); Chloride 109 mmol/L (96-108); Estimated Glomerular Filt Rate 33; Glucose Random 115 mg/dL (60-115); Potassium 5.3 mmol/L (3.3-5.1); Sodium 144 mmol/L (135-145)
[2021-04-10] MEDS: Apixaban 5 MG TABLET PO (19:47)
[2021-04-10] MEDS: propofoL 1,000 MG/100 ML VIAL 13.01 MG IVCONT (22:31)
[2021-04-11] VITALS (25 sets, daily range): BP systolic 108–133; BP diastolic 51–63; PULSE 89–111; RESP 18–41; TEMP 36.6–37.8; O2SAT 77–92
[2021-04-11] MEDS: Furosemide 40 MG/4 ML VIAL IVPUSH (00:34)
[2021-04-11] MEDS: fentaNYL citrate/NS 1,000 MCG/100 ML PLAST..BAG 10 MCG IVCONT (01:40)
[2021-04-11] MEDS: Hydrocortisone Sod Succ/PF 100 MG VIAL IVPUSH (02:21)
[2021-04-11] MEDS: propofoL 1,000 MG/100 ML VIAL 19.51 MG IVCONT ×3 (03:30→14:12)
[2021-04-11 05:37] LABS: VBG Base Excess 8.7 mmol/L; VBG HCO3 36 mmol/L (22-26); VBG pCO2 67 mmHg; VBG pH 7.34 (7.32-7.43); VBG pO2 76 mmHg
[2021-04-11 05:37] LABS: Basophils Percent Auto 0.1 % (0-2); Hematocrit 35.3 % (42-52); Hemoglobin 10.5 g/dl (14.0-18.0); Imm Gran Abs Auto 0.35 X10*3/uL (0.00-0.03); Imm Gran Pct Auto 1.8 % (0.0-0.4); Lymphocytes Absolute Auto 0.3 X10*3/uL (1.2-4.9); Lymphocytes Percent Auto 1.5 % (20-40); MANUAL DIFF FLAG SCAN; Mean Corpuscular HGB Conc 29.7 g/dl (31.0-36.0); Mean Corpuscular Hemoglobin 30.3 pg (27.0-33.0); Mean Platelet Volume 10.2 fL (9.4-12.4); Monocytes Absolute Auto 0.7 X10*3/uL (0.1-1.2); Monocytes Percent Auto 3.3 % (2-11); Neutrophils Absolute Auto 18.6 X10*3/uL (2.0-8.3); Neutrophils Percent Auto 93.3 % (45-73); Platelet Count 149 X10*3/uL (160-400); Red Blood Count 3.46 X10*6/uL (4.60-5.80); Red Cell Distribution Width 15.2 % (11.0-16.0); SCAN SMEAR FLAG 1; White Blood Count 19.9 X10*3/uL (4.8-10.8)
[2021-04-11 05:46] LABS: Venous Blood Gas Refer to POC result
[2021-04-11 05:48] LABS: INTERNATIONAL NORM RATIO 1.2 (0.9-1.1); Prothrombin Time 13.6 SEC (9.9-13.0)
[2021-04-11 05:51] LABS: Partial Thromboplastin Time 24.5 SEC (24.1-38.0)
[2021-04-11] MEDS: Pantoprazole Sodium 40 MG/10 ML VIAL IVPUSH (05:56)
[2021-04-11 06:02] LABS: Alanine Aminotransferase 17 U/L (0-40); Albumin Level 2.9 g/dL (3.5-5.0); Alkaline Phosphatase 128 U/L (39-117); Anion Gap 14 (12-20); Aspartate Amino Transferase 35 U/L (5-37); Bilirubin Total 0.4 mg/dL (0.0-1.0); Blood Urea Nitrogen 73 mg/dL (9-16); Calcium 8.3 mg/dL (8.4-10.2); Carbon Dioxide 33 mmol/L (22-29); Chloride 107 mmol/L (96-108); Creatinine Clr Calc Pharmacy 55.4; Estimated Glomerular Filt Rate 38; Glucose Random 138 mg/dL (60-115); Magnesium 2.6 mg/dL (1.6-2.6); Phosphorus 3.9 mg/dL (2.7-4.5); Potassium 5.9 mmol/L (3.3-5.1); Sodium 148 mmol/L (135-145); Total Protein 4.8 g/dL (6.5-8.0)
[2021-04-11 06:04] LABS: SLIDE REVIEW VERIFIED
--- NOTE | 2021-04-11 07:03 | PC.NURSE ---
Tmax 100. NSR/ST on tele, HR 90-100s. Levophed titrated to maintain MAP > 65. Sedated on propofol/fentanyl, titrated for vent synchrony. Weak C/G, essentially flaccid, no purposeful movement noted. ETT #7.5, 27 cm at lip. On AC 25/580/12/100%, SpO2 85-90%. Desaturates with any movement, unable to reposition pt d/t respiratory instability. Providers aware. Stacks breaths occasionally, intermittent high peak pressures. Small amount of pink/creamy secretions suctioned via inline. Promote tube feeds increased to max rate of 40 ml/hr, minimal GRV. CVP 10, given 40 IVP lasix x1 dose. Bocanegra draining copious amounts of urine, approx 200-350 ml/hr. PICC to LUIS. Skin intact, bruising throughout, unable to assess skin posteriorly d/t respiratory status. On size wize/air loss mattress, heelbos on. Family at bedside at beginning of shift, aware of plan of care.
[2021-04-11 07:36] LABS: Calcium, Ionized 3.5 mg/dL (4.8-5.6)
[2021-04-11] MEDS: Chlorhexidine Gluc Oral Rinse 15 ML MOUTHWASH BUCCAL ×2 (08:26→13:59)
[2021-04-11] MEDS: Cholecalciferol (Vitamin D3) 25 MCG TABLET PO (08:26)
[2021-04-11] MEDS: Albumin Human 25 % 100 ML IV ×2 (08:28→13:59)
[2021-04-11] MEDS: 0.9 % Sodium Chloride Flush 3 ML SYRINGE IVFLUSH ×2 (08:43→16:39)
[2021-04-11] MEDS: fentaNYL citrate/NS 1,000 MCG/100 ML PLAST..BAG 15 MCG IVCONT ×2 (08:59→16:52)
--- NOTE | 2021-04-11 10:13 | MHC.CLN ---
PT INTUBATED AND SEDATED WITH PROPOFOL PT RECEIVING TF PROMOTE AT MAX GOAL RATE 40ML/HR AND 240CC FREE WATER FLUSHES Q 4HRS PROVIDES 960KCALS (1475KCALS WITH SEDATION), 60G PROTEIN, 2245CC TOTAL WATER FROM FORMULA AND FLUSHES (28ML/KG) MD TO SPEAK WITH FAMILY REGARDING GOALS OF CARE IF TF TO CONTINUE; RECOMMEND SWITCHING FORMULA TO NEPRO AT MAX GOAL RATE 35ML/HR TO PROVIDE 1512KCALS (2027KCALS WITH SEDATION; 25KCALS/KG), 68G PROTEIN, 611CC FREE WATER FROM FORMULA FOLLOWING WITH TEAM
--- NOTE | 2021-04-11 13:10 | PM.CCPN ---
Subjective Subjective Date of Service: 04/11/21 Interval History: 70-year-old gentleman with underlying history of rheumatoid arthritis associated interstitial lung disease admitted on 03/28/2021 with progressive hypoxemia secondary to acute exacerbation of his underlying ILD. His hospital course is significant for progressive hypoxemia refractory to steroid therapy, including high-dose pulse of 1 g of Solu-Medrol for 3 days. Secondary to increasing FiO2 requirements patient has been transferred to intensive care unit on 04/05/2021 for combination of high-flow and noninvasive positive pressure ventilation therapy. He has received a dose of Rituxan on 04/07/2021. Secondary to worsening hypoxemia he requiring intubation and ventilatory support on 04/08/2021. Unfortunately, his FiO2 requirements consider to worsen. Request for tertiary transfer has been denied on 04/10/2021. Family meeting was held by Dr. Mantilla and code status has been changed to DNR/DNI now on 04/10/2021. Overnight with no significant changes in his respiratory status now essentially on maximum ventilatory support. Critical Care Time (minutes): 45 Physical Exam Vital Signs: Vital Signs: Last Vital Signs Temp 99.1 F 04/11/21 13:00 Pulse 92 04/11/21 13:00 Resp 20 04/11/21 13:00 BP 120/58 L 04/11/21 13:00 Pulse Ox 88 L 04/11/21 13:00 Body Mass Index 30.0 Const: General: no acute distress and other (Sedated on the vent) Eyes: Sclerae: sclerae normal Neck: Neck: Yes no lymphadenopathy, Yes trachea midline and Yes supple Resp: Auscultation: crackles (Diffuse bilateral) Cardio: Rate: regular rate Rhythm: regular rhythm Heart sounds: no gallops, no murmurs and no rubs GI: Palpation (GI): Soft to palpation and Other GI palpation findings present ( Nontender) Auscultation: normal bowel sounds Extrem: General: No clubbing, No cyanosis and Yes pedal edema (2+ bilateral) Objective Data Labs CBC & Chem 7: 04/11/21 05:20 04/11/21 05:20 Labs: Laboratory Results - last 24 hr 04/09/21 04/10/21 04/10/21 15:26 18:05 18:14 WBC RBC Hgb Hct MCV MCH MCHC RDW Plt Count MPV Immature Gran % (Auto) Neut % (Auto) Lymph % (Auto) [place] % (Auto) Eos % (Auto) Baso % (Auto) Lymph # (Auto) [place] # (Auto) Eos # (Auto) Baso # (Auto) Abs Immat Gran (auto) Absolute Neuts (auto) Absolute Nucleated RBC Nucleated RBC % (auto) Smear Tech's Comments PT INR APTT VBG pH 7.30 L VBG pCO2 56 VBG pO2 75 VBG HCO3 28 H VBG O2 Saturation 94.0 VBG Base Excess 1.1 Sodium 144 Potassium 5.3 H Chloride 109 H Carbon Dioxide 28 Anion Gap 12 BUN 71 H Creatinine 2.00 H Estim Creat Clear Calc 49.0 Estimated GFR 33 Random Glucose 115 Calcium 7.4 L D Ionized Calcium 3.5 L Phosphorus Magnesium Total Bilirubin AST ALT Alkaline Phosphatase Total Protein Albumin 04/11/21 04/11/21 04/11/21 05:20 05:20 05:20 WBC 19.9 H RBC 3.46 L Hgb 10.5 L Hct 35.3 L MCV 102.0 H MCH 30.3 MCHC 29.7 L RDW 15.2 Plt Count 149 L MPV 10.2 Immature Gran % (Auto) 1.8 H Neut % (Auto) 93.3 H Lymph % (Auto) 1.5 L [place] % (Auto) 3.3 Eos % (Auto) 0.0 Baso % (Auto) 0.1 Lymph # (Auto) 0.3 L [place] # (Auto) 0.7 Eos # (Auto) 0.0 Baso # (Auto) 0.0 Abs Immat Gran (auto) 0.35 H Absolute Neuts (auto) 18.6 H Absolute Nucleated RBC 0.000 Nucleated RBC % (auto) 0.0 Smear Tech's Comments VERIFIED PT 13.6 H INR 1.2 H APTT 24.5 VBG pH VBG pCO2 VBG pO2 VBG HCO3 VBG O2 Saturation VBG Base Excess Sodium 148 H Potassium 5.9 H Chloride 107 Carbon Dioxide 33 H Anion Gap 14 BUN 73 H Creatinine 1.77 H Estim Creat Clear Calc 55.4 Estimated GFR 38 Random Glucose 138 H Calcium 8.3 L D Ionized Calcium Phosphorus 3.9 Magnesium 2.6 Total Bilirubin 0.4 AST 35 ALT 17 Alkaline Phosphatase 128 H Total Protein 4.8 L Albumin 2.9 L 04/11/21 05:33 WBC RBC Hgb Hct MCV MCH MCHC RDW Plt Count MPV Immature Gran % (Auto) Neut % (Auto) Lymph % (Auto) [place] % (Auto) Eos % (Auto) Baso % (Auto) Lymph # (Auto) [place] # (Auto) Eos # (Auto) Baso # (Auto) Abs Immat Gran (auto) Absolute Neuts (auto) Absolute Nucleated RBC Nucleated RBC % (auto) Smear Tech's Comments PT INR APTT VBG pH 7.34 VBG pCO2 67 VBG pO2 76 VBG HCO3 36 H VBG O2 Saturation 92.0 VBG Base Excess 8.7 Sodium Potassium Chloride Carbon Dioxide Anion Gap BUN Creatinine Estim Creat Clear Calc Estimated GFR Random Glucose Calcium Ionized Calcium Phosphorus Magnesium Total Bilirubin AST ALT Alkaline Phosphatase Total Protein Albumin Microbiology Microbiology Results: Microbiology 04/08/21 18:00 Sputum - Suctioned Gram Stain - Final 04/08/21 18:00 Sputum - Suctioned Sputum Culture - Final 03/28/21 11:32 Blood - Venous Blood Culture - Final No growth after 5 days. 03/28/21 11:22 Blood - Venous Blood Culture - Final No growth after 5 days. 04/02/21 08:12 Sputum - Expectorated Gram Stain - Final 04/02/21 08:12 Sputum - Expectorated Sputum Culture - Final Quality Stroke Does the patient have a stroke diagnosis?: No VTE Prior VTE?: No VTE Risk Level:: Medical - moderate - high VTE Device Contraindication: Treatment Not Indicated VTE Drug Contraindication: N/A - Med Ordered Progress Note: A&P Assessment and plan (1) Acute kidney injury: Status: Acute Assessment and Plan: Assessment: 70-year-old gentleman with underlying rheumatoid arthritis associated interstitial lung disease admitted with acute hypoxic respiratory failure secondary to acute exacerbation of underlying interstitial lung disease with hospital course significant for progressive hypoxemia refractory to high-dose corticosteroids and reduction, now requiring maximal ventilatory support Plan: Neuro: No acute issues. Cardiac: No acute issues. Pulmonary: Acute on chronic hypoxic respiratory failure secondary to exacerbation of underlying chronic rheumatoid arthritis interstitial lung disease, now requiring maximal ventilatory support. No response to high does Solu-Medrol or Rituxan. Unfortunately, overall prognosis is grim. Renal: Acute kidney injury, likely secondary to nephrotoxic side effects of Bactrim and acyclovir used for infection prophylaxis with immunosuppressive therapy. Non oliguric. Nephrology service care appreciated. Continue monitor renal indices and urine output. Endo: No acute issues. GI: No acute issues. ID: No acute issues Heme/Onc: No acute issues. Psych: No acute issues. Miscellaneous: Overall prognosis is grim, discussion of goals of care with family in progress. Prophylaxis: Intermittent pneumatic compression Diet: Tube feeds Critical care time spent: 45 minutes (2) ARDS (adult respiratory distress syndrome): Status: Acute (3) Respiratory failure with hypoxia: Status: Acute (4) Acute pneumonitis: Status: Acute (5) Interstitial lung disease due to connective tissue disease: Status: Acute (6) Rheumatoid arthritis: Status: Acute (7) Pulmonary fibrosis: Status: Acute
[2021-04-11] MEDS: Lactulose 20 GM/30 ML SOLUTION 30 GM PO (13:58)
--- NOTE | 2021-04-11 15:49 | MHC.CM.PN ---
Intubated on max FiO2 - grim prognosis per MD: family meeting to occur again today for changes to care plan. pt not stable to transfer to LTAC per MD. CM to follow.
[2021-04-11 16:37] LABS: Anion Gap 10 (12-20); Blood Urea Nitrogen 65 mg/dL (9-16); Calcium 8.9 mg/dL (8.4-10.2); Carbon Dioxide 39 mmol/L (22-29); Chloride 107 mmol/L (96-108); Creatinine Clr Calc Pharmacy 76.6; Estimated Glomerular Filt Rate 56; Glucose Random 102 mg/dL (60-115); Potassium 5.7 mmol/L (3.3-5.1); Sodium 150 mmol/L (135-145)
--- NOTE | 2021-04-11 18:14 | PM.CCN ---
Critical Care Event Note Summary Date of Service: 04/11/21 Code activated: No Narrative: Family discussion held. Overall extremity poor clinical prognosis discussed. Decision has been reached to switch goals of care to palliation. Code status changed to comfort measures only. Critical Care Time (minutes): 0
[2021-04-11] MEDS: propofoL 1,000 MG/100 ML VIAL 26.02 MG IVCONT (18:15)
[2021-04-11] MEDS: Midazolam HCl/PF 2 MG/2 ML VIAL IVPUSH (18:30)
[2021-04-11] MEDS: fentaNYL citrate/PF 100 MCG/2 ML VIAL IVPUSH (18:30)
--- NOTE | 2021-04-11 19:10 | P.PNCC_ITS ---
Critical Care Event Note Summary Date of Service: 04/11/21 Code activated: No Narrative: Patient in comfort measures,? terminally extubated earlier today, on heart monitor showing asystole.? On my exam-? no response to verbal or physical stimuli, no spontaneous respiration, absent heart sounds, pupils are fixated and dilated, corneal or gag reflex.? Official time of 7:00 p.m.? Family at bedside.? Not a biomedical specialist case.? Nursing was notified organ donation. Attending Dr. Carlin aware. Critical Care Time (minutes): 0
--- NOTE | 2021-04-11 19:45 | PC.NURSE ---
Addendum entered by Marti Collins RN 04/11/21 19:53: restraints removed at 1800 when decision was made Original Note: Family decided to terminally extubate. Family brought into room per request, 100mcg of ivp fentanyl and 2mg of ivp versed given per emar, pt extubated by respiratory at about 1835. Pt passed at 1900, organ bank called, denied by christian and didier, refferal number [id number].
--- NOTE | 2021-04-11 21:00 | PM.DDS ---
Discharge Sum: Prov Provider Primary care physician: Santiago Odom MD Consults: 03/28/21 17:37 Consult to Pulmonology Routine Consulting Provider: Deng Méndez Reason for consultation: interstitial lung disease, cap Has provider been notified: No 04/01/21 11:11 Consult to Infectious Diseases Routine Consulting Provider: Cristel An Reason for consultation: respiratory failure; possible supperimposed infection 04/04/21 10:49 Consult to Infectious Diseases Stat Consulting Provider: Cristel An Reason for consultation: NEW [place] ORDER 04/05/21 08:33 Consult to Infectious Diseases Routine Consulting Provider: Cristel An Reason for consultation: immune suppressed with hypoxia Has provider been notified: Yes 04/09/21 07:48 Consult to Nephrology Routine Consulting Provider: Michael Kaplan Reason for consultation: increasing creatinine Has provider been notified: Yes Pronouncing clinician: Mercy Stone Discharge Sum: Diag PCOD Cause of : Interstitial lung disease due to connective tissue disease Contributing Factors (1) Acute kidney injury: (2) ARDS (adult respiratory distress syndrome): (3) Respiratory failure with hypoxia: (4) Acute pneumonitis: (5) Interstitial lung disease due to connective tissue disease: (6) Rheumatoid arthritis: (7) Pulmonary fibrosis: Discharge Sum: Summary Date and Time Date of admission: 03/28/21 17:33 Date of : 04/11/21 Time of : 19:00 Summary Details: 70-year-old gentleman with underlying history of rheumatoid arthritis associated interstitial lung disease admitted on 03/28/2021 with progressive hypoxemia secondary to acute exacerbation of his underlying ILD. His hospital course is significant for progressive hypoxemia refractory to steroid therapy, including high-dose pulse of 1 g of Solu-Medrol for 3 days. Secondary to increasing FiO2 requirements patient has been transferred to intensive care unit on 04/05/2021 for combination of high-flow and noninvasive positive pressure ventilation therapy. He has received a dose of Rituxan on 04/07/2021. Secondary to worsening hypoxemia he requiring intubation and ventilatory support on 04/08/2021. Unfortunately, his FiO2 requirements consider to worsen. Request for tertiary transfer has been denied on 04/10/2021. Family meeting was held by Dr. Mantilla and code status has been changed to DNR/DNI now on 04/10/2021. On 04/11/2021 family discussion held. Overall extremity poor clinical prognosis discussed. Decision has been reached to switch goals of care to palliation. Code status changed to comfort measures only. Patient has been terminally extubated and passed at 7:00 p.m. on 04/11/2021. Additional Data Attending physician: Jose Carlin MD
[2021-04-11 21:07] LABS: Prot Elec - Albumin 3.3 g/dL (3.8-4.8); Prot Elec - Alpha1 0.4 g/dL (0.2-0.3); Prot Elec - Beta 1 0.4 g/dL (0.4-0.6); Prot Elec - Beta 2 0.2 g/dL (0.2-0.5); Prot Elec - Gamma 0.7 g/dL (0.8-1.7)
[2021-04-12 11:01] LABS: Complement C3 52 mg/dL (82-185)
[2021-04-12 14:06] LABS: Anti Glomerular Basement Memb <1.0 AI
[2021-04-12 16:52] LABS: Calcium (PTHI) 6.4 mg/dL (8.6-10.3); PTHI 197 pg/mL (14-64)
[2021-04-13 18:57] LABS: Cryoglobulin, Qual Negative (Negative)
== END 2021-04-11 22:00 | disposition expired | DRG 208 ==
LOC: HO.ED 15:17 → HO.EDOVER 17:50 → HO.S3 18:31 → HO.IMC 03-30 13:31 → HO.ICU 04-05 06:11
PROVIDERS: Hospitalist; Internal Medicine; Internal Medicine Cardiovascular Disease; Internal Medicine Nephrology; Physician Assistant; Physician Assistant Medical; Admitting Provider Nurse Practitioner Acute Care; Emergency Provider Emergency Medicine; PCP Internal Medicine; Visit Provider Internal Medicine Pulmonary Disease
DX: J18.9 Pneumonia, unspecified organism (principal); J96.21 Acute and chronic respiratory failure with hypoxia; N17.9 Acute kidney failure, unspecified; G47.30 Sleep apnea, unspecified; M05.10 Rheumatoid lung disease with rheumatoid arthritis of unspecified site; R31.9 Hematuria, unspecified; E87.5 Hyperkalemia; Z99.89 Dependence on other enabling machines and devices; N25.89 Other disorders resulting from impaired renal tubular function; D69.6 Thrombocytopenia, unspecified; I10 Essential (primary) hypertension; Z86.711 Personal history of pulmonary embolism; Z79.01 Long term (current) use of anticoagulants; Z79.52 Long term (current) use of systemic steroids; Z79.899 Other long term (current) drug therapy; Z51.5 Encounter for palliative care
CPT/HCPCS: 36415; 36573; 71045; 71275; 80048; 80053; 80076; 81001; 82271; 82306; 82330; 82595; 82803; 82947; 83520; 83605; 83735; 83880; 83970; 84100; 84145; 84165; 84300; 84443; 84484; 85025; 85027; 85597; 85610; 85613; 85652; 85730; 86021; 86140; 86160; 86225; 86235; 86403; 86431; 86481; 86704; 86706; 86803; 87040; 87070; 87205; 87340; 87449; 87633; 87635; 87640; 87641; 87899; 93005; 94002; 94003; 94640; 94660; 96365; 99285; C1751; C1758; J0133; J0610; J1200; J1940; J1956; J2185; J2250; J2270; J2543; J2930; J3010; J3465; J9312; P9047; Q9967